=== PATIENT | female | born 1945 | race Two or more races ===

== ENCOUNTER 2020-08-22 07:45 | Outpatient (REF) | payer MEDICARE, MEDICAID, SELFPAY ==
[2020-08-22 09:24] LABS: Anion Gap 12 (12-20); Blood Urea Nitrogen 29 mg/dL (9-16); Calcium 8.8 mg/dL (8.4-10.2); Carbon Dioxide 25 mmol/L (22-29); Chloride 109 mmol/L (96-108); Estimated Glomerular Filt Rate 28; Potassium 5.1 mmol/l (3.3-5.1); Sodium 141 mmol/L (135-145)
== END 2020-08-22 07:46 | disposition home or self-care (01) ==
LOC: HO.LAB 07:45
PROVIDERS: PCP Internal Medicine; Visit Provider Internal Medicine Hypertension Specialist
DX: E11.21 Type 2 diabetes mellitus with diabetic nephropathy (principal); I13.10 Hypertensive heart and chronic kidney disease without heart failure, with stage 1 through stage 4 chronic kidney disease, or unspecified chronic kidney disease
CPT/HCPCS: 36415; 80051; 82310; 82565; 84520

== ENCOUNTER 2020-10-21 08:08 | Outpatient (REF) | payer MEDICARE, MEDICAID, SELFPAY ==
[2020-10-21 10:07] LABS: Anion Gap 15 (12-20); Blood Urea Nitrogen 22 mg/dL (9-16); Calcium 8.8 mg/dL (8.4-10.2); Carbon Dioxide 23 mmol/L (22-29); Chloride 107 mmol/L (96-108); Estimated Glomerular Filt Rate 27; Potassium 5.2 mmol/L (3.3-5.1); Sodium 140 mmol/L (135-145)
== END 2020-10-21 08:09 | disposition home or self-care (01) ==
LOC: HO.LAB 08:08
PROVIDERS: PCP Internal Medicine; Visit Provider Internal Medicine Hypertension Specialist
DX: I13.10 Hypertensive heart and chronic kidney disease without heart failure, with stage 1 through stage 4 chronic kidney disease, or unspecified chronic kidney disease (principal); N18.30 Chronic kidney disease, stage 3 unspecified; E11.21 Type 2 diabetes mellitus with diabetic nephropathy; E11.22 Type 2 diabetes mellitus with diabetic chronic kidney disease
CPT/HCPCS: 36415; 80051; 82310; 82565; 84520

== ENCOUNTER 2020-11-19 12:17 | Outpatient (REF) | payer MEDICARE, MEDICAID, SELFPAY ==
--- NOTE | ~2020-11-19 | US_ITS ---
EXAMINATION: US RETROPERITONEAL LIMITED (RENAL ONLY) CLINICAL INFORMATION: Chronic kidney disease, stage 3b. COMPARISON: MRI abdomen 12/09/2015. CT abdomen and pelvis 12/07/2015. Ultrasound abdomen 12/07/2015. Renal ultrasound with bladder 03/19/2015. TECHNIQUE: Real-time imaging of the kidneys. FINDINGS: RIGHT KIDNEY: 10.3 x 4.8 x 5.9 cm (SAG x AP x TRV). The kidney is normal in size, contour, and echogenicity. Renal cortical thickness is normal. There is a 1.5 x 1.3 x 1.6 cm cyst in the lower pole. No renal calculi or hydronephrosis. LEFT KIDNEY: 11.1 x 5.3 x 5.1 cm (SAG x AP x TRV). The kidney is normal in size, contour, and echogenicity. Renal cortical thickness is normal. There is a 0.9 cm cyst in the upper pole. No renal calculi or hydronephrosis. US/US renal BI IMPRESSION: Small bilateral renal cysts.
== END 2020-11-19 12:18 | disposition home or self-care (01) ==
LOC: HO.US 12:17
PROVIDERS: Visit Provider Internal Medicine Hypertension Specialist
DX: N18.32 Chronic kidney disease, stage 3b (principal)
CPT/HCPCS: 76775

== ENCOUNTER 2020-12-02 09:05 | Outpatient (REF) | payer MEDICARE, MEDICAID, SELFPAY ==
[2020-12-02 10:35] LABS: Anion Gap 14 (12-20); Blood Urea Nitrogen 29 mg/dL (9-16); Calcium 8.9 mg/dL (8.4-10.2); Carbon Dioxide 23 mmol/L (22-29); Chloride 106 mmol/L (96-108); Estimated Glomerular Filt Rate 24; Sodium 138 mmol/L (135-145)
[2020-12-02 11:09] LABS: Creatinine Urine 140.02 mg/dL
[2020-12-02 11:40] LABS: Protein/Creatinine Ratio, Ur 2.96 (<0.2); Total Protein Urine Random 414 mg/dL (<12)
== END 2020-12-02 09:06 | disposition home or self-care (01) ==
LOC: HO.LAB 09:05
PROVIDERS: PCP Internal Medicine; Visit Provider Internal Medicine Hypertension Specialist
DX: N18.32 Chronic kidney disease, stage 3b (principal)
CPT/HCPCS: 36415; 80051; 82310; 82565; 84156; 84520

== ENCOUNTER 2021-03-06 09:32 | Outpatient (REF) | payer MEDICARE, MEDICAID, SELFPAY ==
[2021-03-06 10:45] LABS: Estimated Average Glucose 148 mg/dL; Hemoglobin A1c % 6.8 %
[2021-03-06 10:55] LABS: Anion Gap 11 (12-20); Blood Urea Nitrogen 25 mg/dL (9-16); Calcium 9.4 mg/dL (8.4-10.2); Carbon Dioxide 26 mmol/L (22-29); Chloride 111 mmol/L (96-108); Estimated Glomerular Filt Rate 24; Glucose Random 149 mg/dL (60-115); Sodium 142 mmol/L (135-145)
[2021-03-09 13:01] LABS: Calcium (PTHI) 9.2 mg/dL (8.6-10.4); PTHI 162 pg/mL (14-64)
== END 2021-03-06 09:33 | disposition home or self-care (01) ==
LOC: HO.LAB 09:32
PROVIDERS: PCP Internal Medicine; Visit Provider Internal Medicine Hypertension Specialist
DX: N18.4 Chronic kidney disease, stage 4 (severe) (principal)
CPT/HCPCS: 36415; 80048; 83036; 83970

== ENCOUNTER 2021-05-14 10:36 | Outpatient (REF) | payer MEDICARE, MEDICAID, SELFPAY ==
[2021-05-14 12:01] LABS: Prothrombin Time 11.4 SEC (9.9-13.0)
[2021-05-14 12:13] LABS: Anion Gap 13 (12-20); Blood Urea Nitrogen 33 mg/dL (9-16); Calcium 9.6 mg/dL (8.4-10.2); Carbon Dioxide 23 mmol/L (22-29); Chloride 110 mmol/L (96-108); Estimated Glomerular Filt Rate 22; Potassium 4.9 mmol/L (3.3-5.1); Sodium 141 mmol/L (135-145)
[2021-05-14 12:30] LABS: ~HepC Num1 0.15 S/CO (0.00-0.79); ~Hepatitis C Antibody Nonreactive (Nonreactive)
[2021-05-14 12:34] LABS: HBS Num1 5.73 mIU/mL (0-7.99); HBsAGNum1 0.12 S/CO (0.00-0.99); Hepatitis B Surface Antigen Negative (Negative); ~Hepatitis B Surface Antibody NONREACTIVE (Nonreactive)
[2021-05-15 13:17] LABS: Complement C3 155 mg/dL (83-193)
[2021-05-15 13:21] LABS: Anti Nuclear Antibody Screen NEGATIVE (NEGATIVE)
[2021-05-15 15:56] LABS: Myeloperoxidase Antibody <1.0 AI; Proteinase 3 PR3 Antibodies <1.0 AI
== END 2021-05-14 10:37 | disposition home or self-care (01) ==
LOC: HO.LAB 10:36
PROVIDERS: PCP Internal Medicine; Visit Provider Internal Medicine Hypertension Specialist
DX: Z01.84 Encounter for antibody response examination (principal); Z11.59 Encounter for screening for other viral diseases; E11.22 Type 2 diabetes mellitus with diabetic chronic kidney disease; N18.4 Chronic kidney disease, stage 4 (severe)
CPT/HCPCS: 36415; 80051; 82310; 82565; 84520; 85610; 86021; 86038; 86039; 86160; 86706; 86803; 87340

== ENCOUNTER 2021-09-16 07:11 | Outpatient (REF) | payer MEDICARE, MEDICAID, SELFPAY ==
[2021-09-16 07:27] LABS: MANUAL DIFF FLAG NO
[2021-09-16 07:32] LABS: Basophils Percent Auto 0.2 % (0-2); Eosinophils Absolute Auto 0.4 X10*3/uL (0.0-0.4); Eosinophils Percent Auto 4.3 % (0-4); Hematocrit 32.3 % (37.0-47.0); Hemoglobin 10.7 g/dl (12.0-16.0); Imm Gran Abs Auto 0.03 X10*3/uL (0.00-0.03); Imm Gran Pct Auto 0.3 % (0.0-0.4); Lymphocytes Absolute Auto 2.4 X10*3/uL (1.2-4.9); Lymphocytes Percent Auto 24.9 % (20-40); Mean Corpuscular HGB Conc 33.1 g/dl (31.0-35.0); Mean Corpuscular Hemoglobin 28.7 pg (27.0-33.0); Mean Corpuscular Volume 86.6 fL (80.0-98.0); Mean Platelet Volume 10.9 fL (9.4-12.3); Monocytes Absolute Auto 0.7 X10*3/uL (0.1-1.2); Monocytes Percent Auto 7.7 % (2-11); Neutrophils Percent Auto 62.6 % (45-73); Platelet Count 193 X10*3/uL (160-400); Red Blood Count 3.73 X10*6/uL (4.20-5.50); Red Cell Distribution Width 14.8 % (11.0-16.0); White Blood Count 9.6 X10*3/uL (4.8-10.8)
[2021-09-16 08:12] LABS: Anion Gap 14 (12-20); Blood Urea Nitrogen 30 mg/dL (9-16); Calcium 8.8 mg/dL (8.4-10.2); Carbon Dioxide 20 mmol/L (22-29); Chloride 111 mmol/L (96-108); Estimated Glomerular Filt Rate 16; Glucose Random 137 mg/dL (60-115); Potassium 5.2 mmol/L (3.3-5.1); Sodium 140 mmol/L (135-145)
== END 2021-09-16 07:12 | disposition home or self-care (01) ==
LOC: HO.LAB 07:11
PROVIDERS: PCP Internal Medicine; Visit Provider Internal Medicine Hypertension Specialist
DX: N18.4 Chronic kidney disease, stage 4 (severe) (principal); E11.22 Type 2 diabetes mellitus with diabetic chronic kidney disease
CPT/HCPCS: 36415; 80048; 85025

== ENCOUNTER 2021-11-16 06:53 | Outpatient (REF) | payer MEDICARE, MEDICAID, SELFPAY ==
[2021-11-16 08:00] LABS: Anion Gap 11 (12-20); Blood Urea Nitrogen 40 mg/dL (9-16); Calcium 8.9 mg/dL (8.4-10.2); Carbon Dioxide 24 mmol/L (22-29); Chloride 109 mmol/L (96-108); Estimated Glomerular Filt Rate 21; Glucose Random 134 mg/dL (60-115); Potassium 5.3 mmol/L (3.3-5.1); Sodium 139 mmol/L (135-145)
== END 2021-11-16 06:54 | disposition home or self-care (01) ==
LOC: HO.LAB 06:53
PROVIDERS: PCP Internal Medicine; Visit Provider Internal Medicine Hypertension Specialist
DX: E11.22 Type 2 diabetes mellitus with diabetic chronic kidney disease (principal); N18.4 Chronic kidney disease, stage 4 (severe)
CPT/HCPCS: 36415; 80048

== ENCOUNTER 2022-01-01 07:34 | Outpatient (REF) | payer MEDICARE, MEDICAID, SELFPAY ==
[2022-01-01 08:43] LABS: Anion Gap 14 (12-20); Blood Urea Nitrogen 42 mg/dL (9-16); Calcium 9.2 mg/dL (8.4-10.2); Carbon Dioxide 21 mmol/L (22-29); Chloride 110 mmol/L (96-108); Estimated Glomerular Filt Rate 21; Glucose Random 139 mg/dL (60-115); Sodium 140 mmol/L (135-145)
[2022-01-04 15:52] LABS: Calcium (PTHI) 9.3 mg/dL (8.6-10.4); PTHI 195 pg/mL (16-77)
== END 2022-01-01 07:35 | disposition home or self-care (01) ==
LOC: HO.LAB 07:34
PROVIDERS: PCP Internal Medicine; Visit Provider Internal Medicine Hypertension Specialist
DX: N18.4 Chronic kidney disease, stage 4 (severe) (principal); E11.22 Type 2 diabetes mellitus with diabetic chronic kidney disease
CPT/HCPCS: 36415; 80048; 83970

== ENCOUNTER 2022-03-25 09:06 | Outpatient (REF) | payer MEDICARE, MEDICAID, SELFPAY ==
--- NOTE | ~2022-03-25 | MM_ITS ---
EXAMINATION: BONE DENSITOMETRY CLINICAL INDICATION: Vitamin D deficiency. Stage IV kidney disease. COMPARISON: None (current study represents initial baseline exam). TECHNIQUE: Using a [employer] DXA System (software version: 13.1) manufactured by [employer], dual-energy x-ray absorptiometry was performed of the lumbar spine and left hip. The images are of good technical quality. Summary results are attached. FINDINGS: AP SPINE L1-L4: BMD 1.892 g/cm2, Z-score 6.6, T-score 5.9, normal. LEFT FEMUR, NECK: BMD 1.074 g/cm2, Z-score 1.5, T-score 0.3, normal. LEFT FEMUR, TOTAL: BMD 1.285 g/cm2, Z-score 3.2, T-score 2.2, normal. IDENTIFIED RISK FACTORS: Menopause, height loss, renal. HISTORY OF FRACTURE: None listed. MEDICATIONS: Vitamin D. MM/XR DEXA axial skeleton IMPRESSION: 1. DIAGNOSIS: Normal bone density based on the lowest T-score value of 0.3 in the femoral neck applying World Health Organization criteria. 2. 10-YEAR FRACTURE RISK PREDICTION, FRAX: According to the guidelines, FRAX calculation should only be performed on patients in the osteopenia bone density category. Therefore, FRAX was not performed on this patient. 3. Treatment Recommendations: NOF guidelines recommend consideration for treatment in postmenopausal women and men age 50 and older presenting with the following: -A hip or vertebral (clinical or morphometric) fracture. -T-score less than or equal to -2.5 at the femoral neck or spine after appropriate evaluation to exclude secondary causes. -Low bone mass at the hip or spine and a 10-year fracture probability by FRAX of greater than or equal to 3% for hip fracture or greater than or equal to 20% for major osteoporotic fracture based on the [place] adapted WHO algorithm. 4. Other Recommendations: All treatment decisions require clinical judgment and consideration of individual patient factors, including patient preferences, comorbidities, previous drug use, risk factors not captured in the FRAX model (e.g. frailty, falls, vitamin D deficiency, increased bone turnover, interval significant decline in bone density) and possible under or overestimation of fracture risk by FRAX. FUTURE SCAN RECOMMENDATION: People with diagnosed cases of osteoporosis or at high risk for fracture should have regular bone mineral density tests. For patients eligible for Medicare, routine testing is allowed once every 2 years. The testing frequency can be increased to one year for patients who have rapidly progressing disease, those who are receiving or discontinuing medical therapy to restore bone mass, or have additional risk factors.
== END 2022-03-25 09:07 | disposition home or self-care (01) ==
LOC: HO.MAMMO 09:06
PROVIDERS: PCP Internal Medicine; Visit Provider Internal Medicine
DX: Z13.820 Encounter for screening for osteoporosis (principal); E55.9 Vitamin D deficiency, unspecified; N18.4 Chronic kidney disease, stage 4 (severe); Z78.0 Asymptomatic menopausal state
CPT/HCPCS: 77080

== ENCOUNTER 2022-05-24 07:11 | Outpatient (REF) | payer MEDICARE, MEDICAID, SELFPAY ==
[2022-05-24 07:30] LABS: MANUAL DIFF FLAG NO
[2022-05-24 07:42] LABS: Basophils Percent Auto 0.4 % (0-2); Eosinophils Absolute Auto 0.7 X10*3/uL (0.0-0.4); Eosinophils Percent Auto 7.4 % (0-4); Hematocrit 33.1 % (37.0-47.0); Hemoglobin 10.8 g/dl (12.0-16.0); Imm Gran Abs Auto 0.04 X10*3/uL (0.00-0.03); Imm Gran Pct Auto 0.4 % (0.0-0.4); Lymphocytes Absolute Auto 2.1 X10*3/uL (1.2-4.9); Lymphocytes Percent Auto 21.6 % (20-40); Mean Corpuscular HGB Conc 32.6 g/dl (31.0-35.0); Mean Corpuscular Hemoglobin 28.5 pg (27.0-33.0); Mean Corpuscular Volume 87.3 fL (80.0-98.0); Mean Platelet Volume 11.2 fL (9.4-12.3); Monocytes Absolute Auto 0.9 X10*3/uL (0.1-1.2); Monocytes Percent Auto 8.8 % (2-11); Neutrophils Percent Auto 61.4 % (45-73); Platelet Count 188 X10*3/uL (160-400); Red Blood Count 3.79 X10*6/uL (4.20-5.50); Red Cell Distribution Width 14.6 % (11.0-16.0); White Blood Count 9.8 X10*3/uL (4.8-10.8)
[2022-05-24 08:11] LABS: Anion Gap 16 (12-20); Blood Urea Nitrogen 37 mg/dL (9-16); Calcium 9.3 mg/dL (8.4-10.2); Carbon Dioxide 22 mmol/L (22-29); Chloride 110 mmol/L (96-108); Estimated Glomerular Filt Rate 20; Potassium 5.5 mmol/L (3.3-5.1); Sodium 142 mmol/L (135-145)
== END 2022-05-24 07:12 | disposition home or self-care (01) ==
LOC: HO.LAB 07:11
PROVIDERS: PCP Internal Medicine; Visit Provider Internal Medicine Hypertension Specialist
DX: E11.22 Type 2 diabetes mellitus with diabetic chronic kidney disease (principal); N18.4 Chronic kidney disease, stage 4 (severe)
CPT/HCPCS: 36415; 80051; 82310; 82565; 84520; 85025

== ENCOUNTER 2022-09-03 08:20 | Outpatient (REF) | payer MEDICARE, MEDICAID, SELFPAY ==
[2022-09-03 08:34] LABS: MANUAL DIFF FLAG NO
[2022-09-03 08:55] LABS: Basophils Percent Auto 0.3 % (0-2); Eosinophils Absolute Auto 0.4 X10*3/uL (0.0-0.4); Eosinophils Percent Auto 4.2 % (0-4); Imm Gran Abs Auto 0.04 X10*3/uL (0.00-0.03); Imm Gran Pct Auto 0.4 % (0.0-0.4); Mean Corpuscular HGB Conc 32.3 g/dl (31.0-35.0); Mean Corpuscular Volume 86.8 fL (80.0-98.0); Mean Platelet Volume 11.5 fL (9.4-12.3); Monocytes Absolute Auto 0.9 X10*3/uL (0.1-1.2); Monocytes Percent Auto 8.6 % (2-11); Neutrophils Absolute Auto 6.9 x10*3/uL (2.0-8.3); Neutrophils Percent Auto 67.5 % (45-73); Platelet Count 195 X10*3/uL (160-400); Red Blood Count 3.57 X10*6/uL (4.20-5.50); Red Cell Distribution Width 14.9 % (11.0-16.0); White Blood Count 10.3 X10*3/uL (4.8-10.8)
[2022-09-03 09:21] LABS: Anion Gap 14 (12-20); Blood Urea Nitrogen 30 mg/dL (9-16); Calcium 8.7 mg/dL (8.4-10.2); Carbon Dioxide 18 mmol/L (22-29); Chloride 114 mmol/L (96-108); Estimated Glomerular Filt Rate 22; Glucose Random 108 mg/dL (60-115); Potassium 4.9 mmol/L (3.3-5.1); Sodium 141 mmol/L (135-145)
[2022-09-06 13:15] LABS: Calcium (PTHI) 8.7 mg/dL (8.6-10.4); PTHI 205 pg/mL (16-77)
== END 2022-09-03 08:21 | disposition home or self-care (01) ==
LOC: HO.LAB 08:20
PROVIDERS: PCP Internal Medicine; Visit Provider Internal Medicine Hypertension Specialist
DX: N18.4 Chronic kidney disease, stage 4 (severe) (principal)
CPT/HCPCS: 36415; 80048; 83970; 85025

== ENCOUNTER 2023-01-05 10:41 | Outpatient (REF) | payer MEDICARE, MEDICAID, SELFPAY ==
[2023-01-05 10:51] LABS: MANUAL DIFF FLAG NO
[2023-01-05 12:00] LABS: Basophils Percent Auto 0.3 % (0-2); Eosinophils Absolute Auto 0.4 X10*3/uL (0.0-0.4); Eosinophils Percent Auto 4.5 % (0-4); Hematocrit 33.3 % (37.0-47.0); Hemoglobin 10.9 g/dl (12.0-16.0); Imm Gran Abs Auto 0.04 X10*3/uL (0.00-0.03); Imm Gran Pct Auto 0.5 % (0.0-0.4); Lymphocytes Percent Auto 22.6 % (20-40); Mean Corpuscular HGB Conc 32.7 g/dl (31.0-35.0); Mean Corpuscular Hemoglobin 28.1 pg (27.0-33.0); Mean Corpuscular Volume 85.8 fL (80.0-98.0); Mean Platelet Volume 10.9 fL (9.4-12.3); Monocytes Absolute Auto 0.7 X10*3/uL (0.1-1.2); Monocytes Percent Auto 7.6 % (2-11); Neutrophils Absolute Auto 5.7 x10*3/uL (2.0-8.3); Neutrophils Percent Auto 64.5 % (45-73); Platelet Count 218 X10*3/uL (160-400); Red Blood Count 3.88 X10*6/uL (4.20-5.50); Red Cell Distribution Width 14.8 % (11.0-16.0); White Blood Count 8.8 X10*3/uL (4.8-10.8)
[2023-01-05 12:46] LABS: Anion Gap 13 (12-20); Blood Urea Nitrogen 39 mg/dL (9-16); Calcium 8.9 mg/dL (8.4-10.2); Carbon Dioxide 24 mmol/L (22-29); Chloride 110 mmol/L (96-108); Estimated Glomerular Filt Rate 16; Glucose Random 171 mg/dL (60-115); Potassium 4.6 mmol/L (3.3-5.1); Sodium 142 mmol/L (135-145)
[2023-01-07 19:23] LABS: Calcium (PTHI) 8.6 mg/dL (8.6-10.4); PTHI 359 pg/mL (16-77)
== END 2023-01-05 10:42 | disposition home or self-care (01) ==
LOC: HO.LAB 10:41
PROVIDERS: PCP Internal Medicine; Visit Provider Internal Medicine Hypertension Specialist
DX: N18.4 Chronic kidney disease, stage 4 (severe) (principal)
CPT/HCPCS: 36415; 80048; 83970; 85025

== ENCOUNTER 2023-04-11 08:41 | Outpatient (REF) | payer MEDICARE, MEDICAID, SELFPAY ==
[2023-04-11 08:57] LABS: MANUAL DIFF FLAG NO
[2023-04-11 09:19] LABS: Basophils Percent Auto 0.3 % (0-2); Eosinophils Absolute Auto 0.4 X10*3/uL (0.0-0.4); Eosinophils Percent Auto 3.6 % (0-4); Hematocrit 32.2 % (37.0-47.0); Hemoglobin 10.4 g/dl (12.0-16.0); Imm Gran Abs Auto 0.06 X10*3/uL (0.00-0.03); Imm Gran Pct Auto 0.5 % (0.0-0.4); Lymphocytes Percent Auto 17.9 % (20-40); Mean Corpuscular HGB Conc 32.3 g/dl (31.0-35.0); Mean Corpuscular Hemoglobin 28.4 pg (27.0-33.0); Mean Platelet Volume 11.7 fL (9.4-12.3); Monocytes Absolute Auto 0.8 X10*3/uL (0.1-1.2); Monocytes Percent Auto 7.5 % (2-11); Neutrophils Absolute Auto 7.7 x10*3/uL (2.0-8.3); Neutrophils Percent Auto 70.2 % (45-73); Platelet Count 196 X10*3/uL (160-400); Red Blood Count 3.66 X10*6/uL (4.20-5.50); Red Cell Distribution Width 14.7 % (11.0-16.0); White Blood Count 10.9 X10*3/uL (4.8-10.8)
[2023-04-11 09:53] LABS: Anion Gap 10 (12-20); Blood Urea Nitrogen 42 mg/dL (9-16); Calcium 9.4 mg/dL (8.4-10.2); Carbon Dioxide 21 mmol/L (22-29); Chloride 112 mmol/L (96-108); Estimated Glomerular Filt Rate 16; Glucose Random 168 mg/dL (60-115); Iron 66 mcg/dL (30-160); Percent Iron Saturation 25 % (15-50); Potassium 5.4 mmol/L (3.3-5.1); Sodium 138 mmol/L (135-145); Total Iron Binding Capacity 267 mcg/dL (228-428); Unsaturated Iron Binding 201 ug/dL
== END 2023-04-11 08:42 | disposition home or self-care (01) ==
LOC: HO.LAB 08:41
PROVIDERS: PCP Internal Medicine; Visit Provider Internal Medicine Hypertension Specialist
DX: N18.4 Chronic kidney disease, stage 4 (severe) (principal)
CPT/HCPCS: 36415; 80048; 83540; 85025

== ENCOUNTER 2023-07-27 08:11 | Outpatient (REF) | payer MEDICARE, MEDICAID, SELFPAY ==
[2023-07-27 09:41] LABS: Anion Gap 11 (12-20); Blood Urea Nitrogen 43 mg/dL (9-16); Calcium 8.7 mg/dL (8.4-10.2); Carbon Dioxide 21 mmol/L (22-29); Chloride 114 mmol/L (96-108); Estimated Glomerular Filt Rate 13; Potassium 4.8 mmol/L (3.3-5.1); Sodium 141 mmol/L (135-145)
== END 2023-07-27 08:12 | disposition home or self-care (01) ==
LOC: HO.LAB 08:11
PROVIDERS: Visit Provider Internal Medicine Hypertension Specialist
DX: N18.9 Chronic kidney disease, unspecified (principal)
CPT/HCPCS: 36415; 80051; 82310; 82565; 84520

== ENCOUNTER 2023-08-01 14:53 | Outpatient (AMB) | payer MEDICARE, MEDICAID, SELFPAY ==
--- NOTE | 2023-08-01 14:53 | HO.NEPHOV ---
HPI HPI Comments History of Present Illness Details Elderly woman with history of longstanding hypertension with advanced CKD. 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 She was accompanied by her caregiver. Today she has no new complaints. No shortness of breath no nausea vomiting No edema. No urine symptoms. For the last week she has been taking Aleve. Recent serum creatinine is bumped up to 3.3 from a baseline of 2.8. 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 Social History Household Members: None Alcohol intake: never Patient Tobacco Use Status: Never used Tobacco Vital Signs 08/01/23 14:57 Height 5 ft 5 in Weight 239 lb BMI 39.8 BP 162/78 H Blood Pressure Location Lt brachial Position Sitting Pulse 60 Pulse Source Pulse Oximeter Pulse Oximetry (%) 99 Oxygen Delivery Method Room Air Physical Exam Vital Signs: Last Vital Signs Pulse 60 08/01/23 14:57 BP 162/78 H 08/01/23 14:57 Pulse Ox 99 08/01/23 14:57 Oxygen Delivery Method Room Air 08/01/23 14:57 BMI result Body Mass Index 39.8 Const General: comfortable Nutritional Appearance: well nourished Orientation/consciousness: patient oriented x3 HEENT Head: No normal to inspection Mouth: moist mucous membranes Neck Neck: Yes supple and Yes no JVD Resp Auscultation: clear to auscultation bilaterally, no rales and rub present Cardio Jugular venous distension: no JVD Palpation: no palpable S3 and no palpable S4 Heart sounds: no rubs GI Palpation (GI): Soft to palpation and nontender Percussion: No Fluid wave present General: Yes no CVA tenderness Back/Spine/Pelvis Back: no CVA tenderness Skin General skin exam: no rashes or lesions noted Neuro General: patient oriented x3 Extrem General: Yes no pedal edema and No clubbing Assessment & Plan Assessment & Plan (1) CKD (chronic kidney disease): Code(s): N18.9 - Chronic kidney disease, unspecified Plan Elderly woman with advanced renal failure due to diabetic nephropathy by biopsy. There has been a bump in serum creatinine due to the recent addition of Aleve. I have encouraged her to avoid NSAIDs. Clinically she is doing well without any signs or symptoms of uremia or fluid overload. She will recheck the renal function after stopping Aleve. In the meantime encouraged her to stay on low-sodium diet. Increase fluid intake. Although the office blood pressure was elevated today she assures me that her blood pressure has been well controlled at home and she has been monitoring it at home. Therefore I have not made any changes to the antihypertensive regimen. 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 I will recheck intact PTH and calcium prior to next visit and start on vitamin D3 analog as indicated. No absolute indication for erythropoietin replacement therapy at this time. Answered all her questions Orders: Orders Total Protein Urine Random 6 Weeks N18.9 - Chronic kidney disease, unspecified Basic Metabolic Panel 6 Weeks N18.9 - Chronic kidney disease, unspecified Creatinine Urine 6 Weeks N18.9 - Chronic kidney disease, unspecified Parathyroid Hormone Intact 6 Weeks N18.9 - Chronic kidney disease, unspecified Phosphorus 6 Weeks N18.9 - Chronic kidney disease, unspecified Complete Blood Count no Diff 6 Weeks N18.9 - Chronic kidney disease, unspecified Coding Level of Care Code Est Pt Level 4 (77117) Diagnoses CKD (chronic kidney disease) N18.9 Results Reviewed Nephrology Results: Hgb 10.4 g/dl (12.0-16.0) L 04/11/23 WBC 10.9 X10*3/uL (4.8-10.8) H 04/11/23 Plt Count 196 X10*3/uL (160-400) 04/11/23 Sodium 141 mmol/L (135-145) 07/27/23 Potassium 4.8 mmol/L (3.3-5.1) 07/27/23 Chloride 114 mmol/L (96-108) H 07/27/23 Carbon Dioxide 21 mmol/L (22-29) L 07/27/23 BUN 43 mg/dL (9-16) H 07/27/23 Creatinine 3.39 mg/dL (0.5-1.4) H 07/27/23 Calcium 8.7 mg/dL (8.4-10.2) 07/27/23 PTH Intact 359 pg/mL (16-77) H 01/05/23 Urine Creatinine 140.02 mg/dL 12/02/20 Protein/Creatinin Ratio 2.96 (<0.2) H 12/02/20 Renal US 11/19/20
[2023-08-01 14:57] VITALS: BP 162/78; PULSE 60; O2SAT 99; BMI 39.8
== END 2023-08-01 15:25 | disposition home or self-care (01) ==
PROVIDERS: PCP Internal Medicine; Visit Provider Internal Medicine Hypertension Specialist
DX: N18.9 Chronic kidney disease, unspecified (principal)
CPT/HCPCS: 99214

== ENCOUNTER → 2023-08-01 14:53 | Outpatient (BNVA) | payer MEDICARE, MEDICAID, SELFPAY | PROVIDERS: PCP Internal Medicine; Visit Provider Internal Medicine Hypertension Specialist | DX: I12.9 Hypertensive chronic kidney disease with stage 1 through stage 4 chronic kidney disease, or unspecified chronic kidney disease (principal); N18.9 Chronic kidney disease, unspecified | CPT/HCPCS: 99212 ==

== ENCOUNTER 2023-09-21 09:54 | Outpatient (REF) | payer MEDICARE, MEDICAID, SELFPAY ==
[2023-09-21 10:30] LABS: Hematocrit 27.9 % (37.0-47.0); Hemoglobin 9.3 g/dl (12.0-16.0); Mean Corpuscular HGB Conc 33.3 g/dl (31.0-35.0); Mean Corpuscular Hemoglobin 27.5 pg (27.0-33.0); Mean Corpuscular Volume 82.5 fL (80.0-98.0); Platelet Count 278 X10*3/uL (160-400); Red Blood Count 3.38 X10*6/uL (4.20-5.50); Red Cell Distribution Width 14.4 % (11.0-16.0); White Blood Count 13.2 X10*3/uL (4.8-10.8)
[2023-09-21 11:00] LABS: Anion Gap 12 (12-20); Blood Urea Nitrogen 42 mg/dL (9-16); Calcium 8.8 mg/dL (8.4-10.2); Carbon Dioxide 20 mmol/L (22-29); Chloride 112 mmol/L (96-108); Glucose Random 131 mg/dL (60-115); Phosphorus 3.6 mg/dL (2.7-4.5); Potassium 5.2 mmol/L (3.3-5.1); Sodium 139 mmol/L (135-145)
[2023-09-21 11:03] LABS: Estimated Glomerular Filt Rate 8
[2023-09-21 11:16] LABS: Creatinine Urine 165.32 mg/dL
[2023-09-21 11:27] LABS: Total Protein Urine Random 1428 mg/dL (<12)
== END 2023-09-21 09:55 | disposition home or self-care (01) ==
LOC: HO.LAB 09:54
PROVIDERS: PCP Internal Medicine; Visit Provider Internal Medicine Hypertension Specialist
DX: N18.9 Chronic kidney disease, unspecified (principal)
CPT/HCPCS: 36415; 80048; 82570; 83970; 84100; 84156; 85027

== ENCOUNTER 2023-09-26 14:52 | Outpatient (AMB) | payer MEDICARE, MEDICAID, SELFPAY ==
[2023-09-26 15:00] VITALS: BP 170/68; PULSE 68; O2SAT 97; BMI 39.8
--- NOTE | 2023-09-26 15:00 | HO.NEPHOV ---
HPI HPI Comments History of Present Illness Details Elderly woman with history of longstanding hypertension with advanced CKD. 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 She was accompanied by her caregiver. Today she has no new complaints. No shortness of breath no nausea vomiting No edema. No urine symptoms. For the last week she has been taking Aleve. Recent serum creatinine is bumped up to 3.3 from a baseline of 2.8. 09/26/23 REcently had nausea, vomiting, diarrhea for 5 days. 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 Social History Household Members: None Alcohol intake: never Patient Tobacco Use Status: Never used Tobacco Vital Signs 09/26/23 15:00 Height 5 ft 5 in Weight 239 lb BMI 39.8 BP 170/68 H Blood Pressure Location Lt brachial Position Sitting Pulse 68 Pulse Source Pulse Oximeter Pulse Oximetry (%) 97 Oxygen Delivery Method Room Air Physical Exam Vital Signs: Last Vital Signs Pulse 68 09/26/23 15:00 BP 170/68 H 09/26/23 15:00 Pulse Ox 97 09/26/23 15:00 Oxygen Delivery Method Room Air 09/26/23 15:00 BMI result Body Mass Index 39.8 Const General: comfortable Nutritional Appearance: well nourished Orientation/consciousness: patient oriented x3 HEENT Head: No normal to inspection Mouth: moist mucous membranes Neck Neck: Yes supple and Yes no JVD Resp Auscultation: clear to auscultation bilaterally, no rales and rub present Cardio Jugular venous distension: no JVD Palpation: no palpable S3 and no palpable S4 Heart sounds: no rubs GI Palpation (GI): Soft to palpation and nontender Percussion: No Fluid wave present General: Yes no CVA tenderness Back/Spine/Pelvis Back: no CVA tenderness Skin General skin exam: no rashes or lesions noted Neuro General: patient oriented x3 Extrem General: Yes no pedal edema and No clubbing Assessment & Plan Assessment & Plan (1) CKD (chronic kidney disease): Code(s): N18.9 - Chronic kidney disease, unspecified Plan Elderly woman with advanced renal failure due to diabetic nephropathy by biopsy. There has been a bump in serum creatinine due to the recent addition of Aleve. I have encouraged her to avoid NSAIDs. Clinically she is doing well without any signs or symptoms of uremia or fluid overload. In the meantime encouraged her to stay on low-sodium diet. Increase fluid intake. Although the office blood pressure was elevated today she assures me that her blood pressure has been well controlled at home and she has been monitoring it at home. Therefore I have not made any changes to the antihypertensive regimen. 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 recheck intact PTH and calcium No absolute indication for erythropoietin replacement therapy at this time. 09/26/23 Superimposd JENNIFER Due to hypoperfusion in a setting of nausea vomiting HOld LAsix and Losartan x 2 days REcheck labs She might be progressing towards ESRD Daughter was tih her and Mey is not interested in dialysis if the need arises Answered all her questions Orders: Orders Basic Metabolic Panel 2 Days N18.9 - Chronic kidney disease, unspecified Coding Level of Care Code Est Pt Level 4 (69547) Diagnoses CKD (chronic kidney disease) N18.9 Results Reviewed Nephrology Results: Hgb 9.3 g/dl (12.0-16.0) L 09/21/23 WBC 13.2 X10*3/uL (4.8-10.8) H 09/21/23 Plt Count 278 X10*3/uL (160-400) 09/21/23 Sodium 139 mmol/L (135-145) 09/21/23 Potassium 5.2 mmol/L (3.3-5.1) H 09/21/23 Chloride 112 mmol/L (96-108) H 09/21/23 Carbon Dioxide 20 mmol/L (22-29) L 09/21/23 BUN 42 mg/dL (9-16) H 09/21/23 Creatinine 5.07 mg/dL (0.5-1.4) H* 09/21/23 Calcium 8.8 mg/dL (8.4-10.2) 09/21/23 Phosphorus 3.6 mg/dL (2.7-4.5) 09/21/23 PTH Intact 544.0 pg/mL (8.7-77.1) H 09/21/23 Urine Creatinine 165.32 mg/dL 09/21/23
== END 2023-09-26 15:21 | disposition home or self-care (01) ==
PROVIDERS: PCP Internal Medicine; Visit Provider Internal Medicine Hypertension Specialist
DX: N18.9 Chronic kidney disease, unspecified (principal)
CPT/HCPCS: 99214

== ENCOUNTER → 2023-09-26 14:52 | Outpatient (BNVA) | payer MEDICARE, MEDICAID, SELFPAY | PROVIDERS: PCP Internal Medicine; Visit Provider Internal Medicine Hypertension Specialist | DX: N18.9 Chronic kidney disease, unspecified (principal) | CPT/HCPCS: 99212 ==

== ENCOUNTER 2023-09-28 08:58 | Outpatient (REF) | payer MEDICARE, MEDICAID, SELFPAY ==
[2023-09-28 10:55] LABS: Anion Gap 10 (12-20); Blood Urea Nitrogen 44 mg/dL (9-16); Carbon Dioxide 20 mmol/L (22-29); Chloride 112 mmol/L (96-108); Estimated Glomerular Filt Rate 9; Glucose Random 137 mg/dL (60-115); Potassium 5.2 mmol/L (3.3-5.1); Sodium 137 mmol/L (135-145)
== END 2023-09-28 08:59 | disposition home or self-care (01) ==
LOC: HO.LAB 08:58
PROVIDERS: PCP Internal Medicine; Visit Provider Internal Medicine Hypertension Specialist
DX: N18.9 Chronic kidney disease, unspecified (principal)
CPT/HCPCS: 36415; 80048

== ENCOUNTER 2023-10-14 08:24 | Outpatient (REF) | payer MEDICARE, SELFPAY ==
[2023-10-14 09:15] LABS: Anion Gap 14 (12-20); Blood Urea Nitrogen 33 mg/dL (9-16); Calcium 7.9 mg/dL (8.4-10.2); Carbon Dioxide 21 mmol/L (22-29); Chloride 105 mmol/L (96-108); Estimated Glomerular Filt Rate 9; Glucose Random 138 mg/dL (60-115); Potassium 4.4 mmol/L (3.3-5.1); Sodium 136 mmol/L (135-145)
== END 2023-10-14 08:25 | disposition home or self-care (01) ==
LOC: HO.LAB 08:24
PROVIDERS: PCP Internal Medicine; Visit Provider Internal Medicine Hypertension Specialist
DX: N18.9 Chronic kidney disease, unspecified (principal)
CPT/HCPCS: 36415; 80048

== ENCOUNTER 2023-10-17 14:41 | Outpatient (AMB) | payer MEDICARE, MEDICAID, SELFPAY ==
[2023-10-17 14:43] VITALS: BP 152/64; PULSE 72; O2SAT 99; BMI 39.9
--- NOTE | 2023-10-17 14:43 | HO.NEPHOV_ITS ---
HPI HPI Comments History of Present Illness Details Elderly woman with history of longstanding hypertension with advanced CKD. 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 She was accompanied by her caregiver. Today she has no new complaints. No shortness of breath no nausea vomiting No edema. No urine symptoms. For the last week she has been taking Aleve. Recent serum creatinine is bumped up to 3.3 from a baseline of 2.8. 09/26/23 Recently had nausea, vomiting, diarrhea for 5 days. 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 Social History Household Members: None Alcohol intake: never Patient Tobacco Use Status: Never used Tobacco Vital Signs 10/17/23 14:43 Height 5 ft 5 in Weight 240 lb BMI 39.9 BP 152/64 H Blood Pressure Location Rt brachial Position Sitting Pulse 72 Pulse Source Pulse Oximeter Pulse Oximetry (%) 99 Oxygen Delivery Method Room Air Physical Exam Vital Signs: Last Vital Signs Pulse 72 10/17/23 14:43 BP 152/64 H 10/17/23 14:43 Pulse Ox 99 10/17/23 14:43 Oxygen Delivery Method Room Air 10/17/23 14:43 BMI result Body Mass Index 39.9 Const General: comfortable Nutritional Appearance: well nourished Orientation/consciousness: patient oriented x3 HEENT Head: No normal to inspection Mouth: moist mucous membranes Neck Neck: Yes supple and Yes no JVD Resp Auscultation: clear to auscultation bilaterally, no rales and rub present Cardio Jugular venous distension: no JVD Palpation: no palpable S3 and no palpable S4 Heart sounds: no rubs GI Palpation (GI): Soft to palpation and nontender Percussion: No Fluid wave present General: Yes no CVA tenderness Back/Spine/Pelvis Back: no CVA tenderness Skin General skin exam: no rashes or lesions noted Neuro General: patient oriented x3 Extrem General: No clubbing and Yes pedal edema Assessment & Plan Assessment & Plan (1) CKD (chronic kidney disease): Code(s): N18.9 - Chronic kidney disease, unspecified Plan Elderly woman with advanced renal failure due to diabetic nephropathy by biopsy. There was bump in serum creatinine due to the recent addition of Aleve. I have encouraged her to avoid NSAIDs. Creatinine is close to baseline BP acceptable 2nd hyperparathyroidism intact PTH was elevated. recheck intact PTH and calcium No absolute indication for erythropoietin replacement therapy at this time. Due to edema, I iwll restart LASIX at 20 mg QD and can increase to 40 mg if needed Stay on low salt diet Granddaughter was with her . Discussed possible need for dialysis in near future Discussed in detail She agrees to Peritoneal dialysis when the need arises Orders: Orders 2 Basic Metabolic Panel Today N18.9 - Chronic kidney disease, unspecified Medications: New furosemide (Lasix) 20 mg PO DAILY 30 tabs 2RF Coding Level of Care Code Est Pt Level 4 (11851) Diagnoses CKD (chronic kidney disease) N18.9 Results Reviewed Nephrology Results: Hgb 9.3 g/dl (12.0-16.0) L 09/21/23 WBC 13.2 X10*3/uL (4.8-10.8) H 09/21/23 Plt Count 278 X10*3/uL (160-400) 09/21/23 Sodium 136 mmol/L (135-145) 10/14/23 Potassium 4.4 mmol/L (3.3-5.1) 10/14/23 Chloride 105 mmol/L (96-108) 10/14/23 Carbon Dioxide 21 mmol/L (22-29) L 10/14/23 BUN 33 mg/dL (9-16) H 10/14/23 Creatinine 4.86 mg/dL (0.5-1.4) H* 10/14/23 Calcium 7.9 mg/dL (8.4-10.2) L 10/14/23 Phosphorus 3.6 mg/dL (2.7-4.5) 09/21/23 PTH Intact 544.0 pg/mL (8.7-77.1) H 09/21/23 Urine Creatinine 165.32 mg/dL 09/21/23
== END 2023-10-17 15:09 | disposition home or self-care (01) ==
PROVIDERS: PCP Internal Medicine; Visit Provider Internal Medicine Hypertension Specialist
DX: N18.9 Chronic kidney disease, unspecified (principal)
CPT/HCPCS: 99214

== ENCOUNTER → 2023-10-17 14:41 | Outpatient (BNVA) | payer MEDICARE, MEDICAID, SELFPAY | PROVIDERS: PCP Internal Medicine; Visit Provider Internal Medicine Hypertension Specialist | DX: N18.9 Chronic kidney disease, unspecified (principal) | CPT/HCPCS: 99212 ==

== ENCOUNTER 2023-11-11 10:10 | Outpatient (REF) | payer MEDICARE, MEDICAID, SELFPAY ==
[2023-11-11 12:05] LABS: Anion Gap 14 (12-20); Blood Urea Nitrogen 51 mg/dL (9-16); Calcium 8.5 mg/dL (8.4-10.2); Carbon Dioxide 20 mmol/L (22-29); Chloride 111 mmol/L (96-108); Cholesterol 182 mg/dL (<200); Glucose Random 120 mg/dL (60-115); HDL Cholesterol 60 mg/dL (>40); LDL Cholesterol Calculated 101 mg/dL (<100); Potassium 4.7 mmol/L (3.3-5.1); Sodium 140 mmol/L (135-145); Triglycerides 107 mg/dL (<150)
[2023-11-11 12:46] LABS: Estimated Glomerular Filt Rate 7
[2023-11-11 14:14] LABS: Reflex LDLD? No
== END 2023-11-11 10:11 | disposition home or self-care (01) ==
LOC: HO.LAB 10:10
PROVIDERS: PCP Internal Medicine; Visit Provider Internal Medicine Hypertension Specialist
DX: I12.9 Hypertensive chronic kidney disease with stage 1 through stage 4 chronic kidney disease, or unspecified chronic kidney disease (principal); N18.4 Chronic kidney disease, stage 4 (severe)
CPT/HCPCS: 36415; 80048; 80061

== ENCOUNTER 2023-11-14 14:48 | Outpatient (AMB) | payer MEDICARE, MEDICAID, SELFPAY ==
[2023-11-14 14:49] VITALS: BP 134/54; PULSE 90; O2SAT 97; BMI 39.1
--- NOTE | 2023-11-14 14:49 | HO.NEPHOV_ITS ---
Vital Signs 11/14/23 14:49 Height 5 ft 5 in Weight 235 lb BMI 39.1 BP 134/54 L Blood Pressure Location Lt brachial Position Sitting Pulse 90 Pulse Source Pulse Oximeter Pulse Oximetry (%) 97 Oxygen Delivery Method Room Air Intake Visit Reasons: CKD/ 1 MO FU/ Confirmed [employer] Special Agent Required: No Accompanied by: Grand Child Allergies Crustaceans Allergy (Mild, Uncoded 10/31/23 08:02) SWELLING/HIVES HPI Comments Details: Elderly woman with history of longstanding hypertension with advanced CKD. 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 She was accompanied by her caregiver. Today she has no new complaints. No shortness of breath no nausea vomiting No edema. No urine symptoms. For the last week she has been taking Aleve. Recent serum creatinine is bumped up to 3.3 from a baseline of 2.8. 09/26/23 Recently had nausea, vomiting, diarrhea for 5 days. Cr is up to 5;Today she is feeling better 10/17/23 Accompanied by grand daughter Mey is feeling ok c/o leg swelling No dyspnea Appetite is ok She has gained 1 lb 11/14/23 Feels about the same. 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 Social History Household Members: None Alcohol intake: never Patient Tobacco Use Status: Never used Tobacco Physical Exam Vital Signs: Last Vital Signs Pulse 90 11/14/23 14:49 BP 134/54 L 11/14/23 14:49 Pulse Ox 97 11/14/23 14:49 Oxygen Delivery Method Room Air 11/14/23 14:49 BMI result Body Mass Index 39.1 Const General: comfortable Nutritional Appearance: well nourished Orientation/consciousness: patient oriented x3 HEENT Head: No normal to inspection Mouth: moist mucous membranes Neck Neck: Yes supple and Yes no JVD Resp Auscultation: clear to auscultation bilaterally, no rales and rub present Cardio Jugular venous distension: no JVD Palpation: no palpable S3 and no palpable S4 Heart sounds: no rubs GI Palpation (GI): Soft to palpation and nontender Percussion: No Fluid wave present General: Yes no CVA tenderness Back/Spine/Pelvis Back: no CVA tenderness Skin General skin exam: no rashes or lesions noted Neuro General: patient oriented x3 Extrem General: No clubbing and Yes pedal edema Results Reviewed Nephrology Results: Hgb 9.3 g/dl (12.0-16.0) L 09/21/23 WBC 13.2 X10*3/uL (4.8-10.8) H 09/21/23 Plt Count 278 X10*3/uL (160-400) 09/21/23 Sodium 140 mmol/L (135-145) 11/11/23 Potassium 4.7 mmol/L (3.3-5.1) 11/11/23 Chloride 111 mmol/L (96-108) H 11/11/23 Carbon Dioxide 20 mmol/L (22-29) L 11/11/23 BUN 51 mg/dL (9-16) H 11/11/23 Creatinine 5.61 mg/dL (0.5-1.4) H* 11/11/23 Calcium 8.5 mg/dL (8.4-10.2) 11/11/23 Phosphorus 3.6 mg/dL (2.7-4.5) 09/21/23 PTH Intact 544.0 pg/mL (8.7-77.1) H 09/21/23 Urine Creatinine 165.32 mg/dL 09/21/23 Assessment & Plan Assessment & Plan (1) CKD (chronic kidney disease): Code(s): N18.9 - Chronic kidney disease, unspecified Category: Medical Plan Elderly woman with advanced renal failure due to diabetic nephropathy by biopsy. CKD 5 No s/s of uremia or fluid overload BP acceptable even without Metoprolol Agree with holding Metoprolol for now and watch 2nd hyperparathyroidism intact PTH was elevated. On Vit D3 recheck intact PTH and calcium and will consider adding Rocaltrol No absolute indication for erythropoietin replacement therapy at this time. Will check Iron/TIBC Due to edema, Keep LASIX at 20 mg QD Stay on low salt diet Granddaughter was with her . Discussed possible need for dialysis in near future Discussed in detail She agrees to Peritoneal dialysis when the need arises Will refer for dialysis education Orders: Orders IRON PROFILE 4 Weeks N18.5 - Chronic kidney disease, stage 5, N18.9 - Chronic kidney disease, unspecified Basic Metabolic Panel 4 Weeks N18.9 - Chronic kidney disease, unspecified Complete Blood Count Auto Diff 4 Weeks N18.30 - Chronic kidney disease, stage 3 unspecified, N18.9 - Chronic kidney disease, unspecified Parathyroid Hormone Intact 4 Weeks N18.9 - Chronic kidney disease, unspecified
== END 2023-11-14 15:10 | disposition home or self-care (01) ==
LOC: HO.HKA 14:48
PROVIDERS: PCP Internal Medicine; Visit Provider Internal Medicine Hypertension Specialist
DX: N18.9 Chronic kidney disease, unspecified (principal)
CPT/HCPCS: 99214

== ENCOUNTER → 2023-11-14 14:48 | Outpatient (BNVA) | payer MEDICARE, MEDICAID, SELFPAY | PROVIDERS: PCP Internal Medicine; Visit Provider Internal Medicine Hypertension Specialist | DX: E11.22 Type 2 diabetes mellitus with diabetic chronic kidney disease (principal); I12.0 Hypertensive chronic kidney disease with stage 5 chronic kidney disease or end stage renal disease; N18.5 Chronic kidney disease, stage 5 | CPT/HCPCS: 99212 ==

== ENCOUNTER 2023-12-09 11:12 | Outpatient (REF) | payer MEDICARE, MEDICAID, SELFPAY ==
[2023-12-09 12:54] LABS: Basophils Percent Auto 0.5 % (0-2); Eosinophils Absolute Auto 0.4 X10*3/uL (0.0-0.4); Eosinophils Percent Auto 4.4 % (0-4); Hematocrit 24.6 % (37.0-47.0); Hemoglobin 8.1 g/dl (12.0-16.0); Imm Gran Abs Auto 0.03 X10*3/uL (0.00-0.03); Imm Gran Pct Auto 0.3 % (0.0-0.4); Lymphocytes Absolute Auto 1.7 X10*3/uL (1.2-4.9); Lymphocytes Percent Auto 18.8 % (20-40); MANUAL DIFF FLAG NO; Mean Corpuscular HGB Conc 32.9 g/dl (31.0-35.0); Mean Corpuscular Hemoglobin 28.4 pg (27.0-33.0); Mean Corpuscular Volume 86.3 fL (80.0-98.0); Mean Platelet Volume 10.7 fL (9.4-12.3); Monocytes Absolute Auto 0.7 X10*3/uL (0.1-1.2); Monocytes Percent Auto 7.4 % (2-11); Neutrophils Absolute Auto 6.1 x10*3/uL (2.0-8.3); Neutrophils Percent Auto 68.6 % (45-73); Platelet Count 197 X10*3/uL (160-400); Red Blood Count 2.85 X10*6/uL (4.20-5.50); White Blood Count 8.8 X10*3/uL (4.8-10.8)
[2023-12-09 13:46] LABS: Parathyroid Hormone Intact 457.3 pg/mL (8.7-77.1)
[2023-12-09 14:00] LABS: Anion Gap 17 (12-20); Blood Urea Nitrogen 58 mg/dL (9-16); Calcium 8.9 mg/dL (8.4-10.2); Carbon Dioxide 19 mmol/L (22-29); Chloride 111 mmol/L (96-108); Glucose Random 105 mg/dL (60-115); Iron 47 mcg/dL (30-160); Percent Iron Saturation 18 % (15-50); Sodium 142 mmol/L (135-145); Total Iron Binding Capacity 258 mcg/dL (228-428); Unsaturated Iron Binding 211 ug/dL
[2023-12-09 14:07] LABS: Estimated Glomerular Filt Rate 7
== END 2023-12-09 11:13 | disposition home or self-care (01) ==
LOC: HO.LAB 11:12
PROVIDERS: Internal Medicine Hypertension Specialist; PCP Internal Medicine; Visit Provider Psychiatry & Neurology Neurology
DX: N18.5 Chronic kidney disease, stage 5 (principal); N18.30 Chronic kidney disease, stage 3 unspecified
CPT/HCPCS: 36415; 80048; 83540; 83970; 85025

== ENCOUNTER 2023-12-20 15:03 | Outpatient (AMB) | payer MEDICARE, MEDICAID, SELFPAY ==
[2023-12-20 15:07] VITALS: BP 138/52; PULSE 83; O2SAT 96; BMI 38.8
--- NOTE | 2023-12-20 15:07 | HO.NEPHOV ---
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 She was accompanied by her caregiver. Today she has no new complaints. No shortness of breath no nausea vomiting No edema. No urine symptoms. For the last week she has been taking Aleve. Recent serum creatinine is bumped up to 3.3 from a baseline of 2.8. 09/26/23 Recently had nausea, vomiting, diarrhea for 5 days. Cr is up to 5;Today she is feeling better 10/17/23 Accompanied by grand daughter Mey is feeling ok c/o leg swelling No dyspnea Appetite is ok She has gained 1 lb 12/20/23 Feels OK . 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 Social History Household Members: None Alcohol intake: never Patient Tobacco Use Status: Never used Tobacco Physical Exam Vital Signs: Last Vital Signs Pulse 83 12/20/23 15:07 BP 138/52 L 12/20/23 15:07 Pulse Ox 96 12/20/23 15:07 Oxygen Delivery Method Room Air 12/20/23 15:07 BMI result Body Mass Index 38.8 Results Reviewed Nephrology Results: Hgb 8.1 g/dl (12.0-16.0) L 12/09/23 WBC 8.8 X10*3/uL (4.8-10.8) 12/09/23 Plt Count 197 X10*3/uL (160-400) 12/09/23 Sodium 142 mmol/L (135-145) 12/09/23 Potassium 5.0 mmol/L (3.3-5.1) 12/09/23 Chloride 111 mmol/L (96-108) H 12/09/23 Carbon Dioxide 19 mmol/L (22-29) L 12/09/23 BUN 58 mg/dL (9-16) H 12/09/23 Creatinine 5.70 mg/dL (0.5-1.4) H* 12/09/23 Calcium 8.9 mg/dL (8.4-10.2) 12/09/23 Phosphorus 3.6 mg/dL (2.7-4.5) 09/21/23 PTH Intact 457.3 pg/mL (8.7-77.1) H 12/09/23 Urine Creatinine 165.32 mg/dL 09/21/23 Assessment & Plan Assessment & Plan (1) CKD (chronic kidney disease): Code(s): N18.9 - Chronic kidney disease, unspecified Category: Medical Plan Elderly woman with advanced renal failure due to diabetic nephropathy by biopsy. CKD 5 No s/s of uremia or fluid overload BP acceptable even without Metoprolol Agree with holding Metoprolol for now and watch 2nd hyperparathyroidism intact PTH was elevated. On Vit D3 recheck intact PTH and calcium and will consider adding Rocaltrol Anemia Will initaite erythropoietin replacement therapy at this time. Iron/TIBC are acceptable Due to edema, Keep LASIX at 20 mg QD Stay on low salt diet SHPT: start Calcitriol 0.25 mcg 3 x week Granddaughter was with her . Discussed dialysis She agrees to Peritoneal dialysis when the need arises Referred for dialysis education Medications: New calcitriol 0.25 mcg PO 3XW 30 caps 1RF nifedipine ER 60 mg PO DAILY 90 tabs 1RF Coding Level of Care Code Est Pt Level 4 (01090) Diagnoses CKD (chronic kidney disease) N18.9
== END 2023-12-20 15:26 | disposition home or self-care (01) ==
PROVIDERS: PCP Internal Medicine; Visit Provider Internal Medicine Hypertension Specialist
DX: N18.9 Chronic kidney disease, unspecified (principal)
CPT/HCPCS: 99214

== ENCOUNTER → 2023-12-20 15:03 | Outpatient (BNVA) | payer MEDICARE, MEDICAID, SELFPAY | PROVIDERS: PCP Internal Medicine; Visit Provider Internal Medicine Hypertension Specialist | DX: E11.21 Type 2 diabetes mellitus with diabetic nephropathy (principal); E11.22 Type 2 diabetes mellitus with diabetic chronic kidney disease; N18.5 Chronic kidney disease, stage 5 | CPT/HCPCS: 99212 ==

== ENCOUNTER 2024-01-03 12:10 | Outpatient (AMB) | payer MEDICARE, MEDICAID, SELFPAY ==
[2024-01-03 12:12] VITALS: BP 160/58; BMI 38.6
--- NOTE | 2024-01-03 12:12 | HO.NEPHOV ---
Vital Signs 01/03/24 12:12 Height 5 ft 5 in Weight 232 lb BMI 38.6 BP 160/58 H Blood Pressure Location Rt brachial Position Sitting Intake Visit Reasons: Retacrit/ LVM Hansard Reporter Required: No Accompanied by: Grand Child Allergies Crustaceans Allergy (Mild, Uncoded 10/31/23 08:02) SWELLING/HIVES HPI Comments Details: Elderly woman with history of longstanding hypertension with advanced CKD. 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 She was accompanied by her caregiver. Today she has no new complaints. No shortness of breath no nausea vomiting No edema. No urine symptoms. For the last week she has been taking Aleve. Recent serum creatinine is bumped up to 3.3 from a baseline of 2.8. 09/26/23 Recently had nausea, vomiting, diarrhea for 5 days. Cr is up to 5;Today she is feeling better 10/17/23 Accompanied by grand daughter Mey is feeling ok c/o leg swelling No dyspnea Appetite is ok She has gained 1 lb 12/20/23 Feels OK . Lost 7 lbs in 2 months Edema has improved No dyspnea Appetite is OK [facility] Medical History (System 10/31/23 @ 08:02 by Vanessa Morales) Hypertension High cholesterol Diabetes Gallbladder & bile duct stone with obstruction Social History Household Members: None Alcohol intake: never Patient Tobacco Use Status: Never used Tobacco Physical Exam Vital Signs: Last Vital Signs BP 160/58 H 01/03/24 12:12 BMI result Body Mass Index 38.6 Const General: comfortable Nutritional Appearance: well nourished Orientation/consciousness: patient oriented x3 HEENT Head: No normal to inspection Mouth: moist mucous membranes Neck Neck: Yes supple and Yes no JVD Resp Auscultation: clear to auscultation bilaterally and no rales Cardio Jugular venous distension: no JVD Palpation: no palpable S3 and no palpable S4 Heart sounds: no rubs GI Palpation (GI): Soft to palpation and nontender Percussion: No Fluid wave present General: Yes no CVA tenderness Back/Spine/Pelvis Back: no CVA tenderness Skin General skin exam: no rashes or lesions noted Neuro General: patient oriented x3 Extrem General: No clubbing and Yes pedal edema Results Reviewed Nephrology Results: Hgb 8.1 g/dl (12.0-16.0) L 12/09/23 WBC 8.8 X10*3/uL (4.8-10.8) 12/09/23 Plt Count 197 X10*3/uL (160-400) 12/09/23 Sodium 142 mmol/L (135-145) 12/09/23 Potassium 5.0 mmol/L (3.3-5.1) 12/09/23 Chloride 111 mmol/L (96-108) H 12/09/23 Carbon Dioxide 19 mmol/L (22-29) L 12/09/23 BUN 58 mg/dL (9-16) H 12/09/23 Creatinine 5.70 mg/dL (0.5-1.4) H* 12/09/23 Calcium 8.9 mg/dL (8.4-10.2) 12/09/23 Phosphorus 3.6 mg/dL (2.7-4.5) 09/21/23 PTH Intact 457.3 pg/mL (8.7-77.1) H 12/09/23 Urine Creatinine 165.32 mg/dL 09/21/23 Assessment & Plan Assessment & Plan (1) CKD (chronic kidney disease): Code(s): N18.9 - Chronic kidney disease, unspecified Category: Medical Plan Elderly woman with advanced renal failure due to diabetic nephropathy by biopsy. CKD 5 No s/s of uremia or fluid overload BP acceptable even without Metoprolol Agree with holding Metoprolol for now and watch 2nd hyperparathyroidism intact PTH was elevated. On Vit D3 recheck intact PTH and calcium and will consider adding Rocaltrol Anemia erythropoietin replacement therapy at this time. REceived [id number] U sq right arm Iron/TIBC are acceptable Due to edema, Keep LASIX at 20 mg QD Stay on low salt diet SHPT: Keep Calcitriol 0.25 mcg 3 x week Grandson was with her . Visited Dialysis clinic for Peritoneal dialysis education 2 weeks ago Orders: Orders Basic Metabolic Panel 3 Weeks N18.9 - Chronic kidney disease, unspecified Complete Blood Count no Diff 3 Weeks N18.9 - Chronic kidney disease, unspecified AMB Epoetin Injection Practice Supplied Today N18.9 - Chronic kidney disease, unspecified Medications: New epoetin anselmo-epbx 20,000 units subcut ONCE 1 mL 0RF Anemia N18.9 - Chronic kidney disease, unspecified Coding Level of Care Code Est Pt Level 4 (53517) Diagnoses CKD (chronic kidney disease) N18.9
== END 2024-01-03 12:32 | disposition home or self-care (01) ==
PROVIDERS: PCP Internal Medicine; Visit Provider Internal Medicine Hypertension Specialist
DX: N18.9 Chronic kidney disease, unspecified (principal)
CPT/HCPCS: 99214

== ENCOUNTER → 2024-01-03 12:10 | Outpatient (BNVA) | payer MEDICARE, MEDICAID, SELFPAY | PROVIDERS: PCP Internal Medicine; Visit Provider Internal Medicine Hypertension Specialist | DX: N18.9 Chronic kidney disease, unspecified (principal) | CPT/HCPCS: 96372; 99212; Q5106 ==

== ENCOUNTER 2024-01-27 07:31 | Outpatient (REF) | payer MEDICARE, MEDICAID, SELFPAY ==
[2024-01-27 08:04] LABS: Hematocrit 25.6 % (37.0-47.0); Hemoglobin 8.6 g/dl (12.0-16.0); Mean Corpuscular HGB Conc 33.6 g/dl (31.0-35.0); Mean Corpuscular Hemoglobin 28.8 pg (27.0-33.0); Mean Corpuscular Volume 85.6 fL (80.0-98.0); Mean Platelet Volume 11.3 fL (9.4-12.3); Platelet Count 197 X10*3/uL (160-400); Red Blood Count 2.99 X10*6/uL (4.20-5.50); Red Cell Distribution Width 14.7 % (11.0-16.0)
[2024-01-27 09:07] LABS: Anion Gap 14 (12-20); Blood Urea Nitrogen 86 mg/dL (9-16); Calcium 8.7 mg/dL (8.4-10.2); Carbon Dioxide 17 mmol/L (22-29); Chloride 112 mmol/L (96-108); Estimated Glomerular Filt Rate 5; Glucose Random 110 mg/dL (60-115); Potassium 5.1 mmol/L (3.3-5.1); Sodium 138 mmol/L (135-145)
== END 2024-01-27 07:32 | disposition home or self-care (01) ==
LOC: HO.LAB 07:31
PROVIDERS: PCP Internal Medicine; Visit Provider Internal Medicine Hypertension Specialist
DX: N18.9 Chronic kidney disease, unspecified (principal)
CPT/HCPCS: 36415; 80048; 85027

== ENCOUNTER 2024-01-31 11:58 | Outpatient (AMB) | payer MEDICARE, MEDICAID, SELFPAY ==
[2024-01-31 11:52] VITALS: BP 154/62; PULSE 74; O2SAT 96; BMI 37.9
--- NOTE | 2024-01-31 11:52 | HO.NEPHOV_ITS ---
Vital Signs 01/31/24 11:52 Height 5 ft 5 in Weight 228 lb BMI 37.9 BP 154/62 H Blood Pressure Location Rt brachial Position Sitting Pulse 74 Pulse Source Pulse Oximeter Pulse Oximetry (%) 96 Oxygen Delivery Method Room Air Intake Visit Reasons: Retacrit/ 4 weeks fu/ Conf Speech Therapy Director Required: No Accompanied by: Grand Child Allergies Crustaceans Allergy (Mild, Uncoded 10/31/23 08:02) SWELLING/HIVES HPI Comments Details: Elderly woman with history of longstanding hypertension with advanced CKD. 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 She was accompanied by her caregiver. Today she has no new complaints. No shortness of breath no nausea vomiting No edema. No urine symptoms. For the last week she has been taking Aleve. Recent serum creatinine is bumped up to 3.3 from a baseline of 2.8. 09/26/23 Recently had nausea, vomiting, diarrhea for 5 days. Cr is up to 5;Today she is feeling better 10/17/23 Accompanied by grand daughter Mey is feeling ok c/o leg swelling No dyspnea Appetite is ok She has gained 1 lb 12/20/23 Feels OK . Lost 7 lbs in 2 months Edema has improved No dyspnea Appetite is OK [facility] Medical History (Updated 01/31/24 @ 14:46 by Guero Zuniga MD) Hypertension High cholesterol Diabetes Gallbladder & bile duct stone with obstruction Social History Household Members: None Alcohol intake: never Patient Tobacco Use Status: Never used Tobacco Physical Exam Vital Signs: Last Vital Signs Pulse 74 01/31/24 11:52 BP 154/62 H 01/31/24 11:52 Pulse Ox 96 01/31/24 11:52 Oxygen Delivery Method Room Air 01/31/24 11:52 BMI result Body Mass Index 37.9 Const General: comfortable; No acute distress Orientation/consciousness: patient oriented x3 Eyes General: appearance normal, both eyes and all related structures Visual Coleman: normal visual coleman by confrontation Neck Neck: Yes supple and Yes no JVD Resp Effort & Inspection: normal respiratory effort and respiratory effort not decreased Auscultation: rhonchi Cardio Palpation: no palpable S3 and no palpable S4 Heart sounds: no rubs GI Inspection: Yes normal to inspection Palpation (GI): Soft to palpation Percussion: Yes normal to percussion Auscultation: normal bowel sounds General: Yes no CVA tenderness Back/Spine/Pelvis Back: no CVA tenderness Skin General skin exam: no petechiae and no purpura Neuro General: patient oriented x3 and no focal motor deficits Extrem General: No clubbing and No edema Results Reviewed Nephrology Results: Hgb 8.6 g/dl (12.0-16.0) L 01/27/24 WBC 8.0 X10*3/uL (4.8-10.8) 01/27/24 Plt Count 197 X10*3/uL (160-400) 01/27/24 Sodium 138 mmol/L (135-145) 01/27/24 Potassium 5.1 mmol/L (3.3-5.1) 01/27/24 Chloride 112 mmol/L (96-108) H 01/27/24 Carbon Dioxide 17 mmol/L (22-29) L 01/27/24 BUN 86 mg/dL (9-16) H 01/27/24 Creatinine 7.50 mg/dL (0.5-1.4) H* 01/27/24 Calcium 8.7 mg/dL (8.4-10.2) 01/27/24 PTH Intact 457.3 pg/mL (8.7-77.1) H 12/09/23 Assessment & Plan Assessment & Plan (1) CKD (chronic kidney disease): Code(s): N18.9 - Chronic kidney disease, unspecified Category: Medical (2) Anemia due to chronic kidney disease: Code(s): N18.9 - Chronic kidney disease, unspecified; D63.1 - Anemia in chronic kidney disease Category: Medical Plan Elderly woman with advanced renal failure due to diabetic nephropathy by biopsy. CKD 5 No s/s of uremia or fluid overload Maintain blood pressure less than 130/80 Agree with holding Metoprolol for now and watch 2nd hyperparathyroidism intact PTH was elevated. On Vit D3 recheck intact PTH and calcium and will consider adding Rocaltrol Anemia erythropoietin replacement therapy at this time. REceived [id number] U sq right arm Iron/TIBC are acceptable Due to edema, Keep LASIX at 20 mg QD Stay on low salt diet SHPT: Keep Calcitriol 0.25 mcg 3 x week Grandson was with her . Visited Dialysis clinic for Peritoneal dialysis education 2 weeks ago She is approaching end stage renal disease. EGFR is 5 mL/minute No overt signs or symptoms of uremia. I will referred to IR for insertion of peritoneal dialysis catheter. Orders: Orders AMB Epoetin Injection Practice Supplied Today D63.1 - Anemia in chronic kidney disease, N18.9 - Chronic kidney disease, unspecified Referrals Interventional Radiology Referral N18.9 - Chronic kidney disease, unspecified Medications: New epoetin anselmo-epbx 20,000 units subcut ONCE 1 mL 0RF Anemia D63.1 - Anemia in chronic kidney disease, N18.9 - Chronic kidney disease, unspecified Coding Level of Care Code Est Pt Level 4 (51851) Diagnoses CKD (chronic kidney disease) N18.9 Anemia due to chronic kidney disease N18.9; D63.1
== END 2024-01-31 12:05 | disposition home or self-care (01) ==
PROVIDERS: PCP Internal Medicine; Visit Provider Internal Medicine Hypertension Specialist
DX: N18.9 Chronic kidney disease, unspecified (principal); D63.1 Anemia in chronic kidney disease
CPT/HCPCS: 99214

== ENCOUNTER → 2024-01-31 11:58 | Outpatient (BNVA) | payer MEDICARE, MEDICAID, SELFPAY | PROVIDERS: PCP Internal Medicine; Visit Provider Internal Medicine Hypertension Specialist | DX: E11.22 Type 2 diabetes mellitus with diabetic chronic kidney disease (principal); N18.5 Chronic kidney disease, stage 5; D63.1 Anemia in chronic kidney disease | CPT/HCPCS: 96372; 99212; Q5106 ==

== ENCOUNTER 2024-02-21 13:34 | Outpatient (AMB) | payer MEDICARE, MEDICAID, SELFPAY ==
[2024-02-21 13:39] VITALS: BP 140/56; PULSE 82; O2SAT 96; BMI 38.1
--- NOTE | 2024-02-21 13:39 | HO.NEPHOV ---
Vital Signs 02/21/24 13:39 Height 5 ft 5 in Weight 229 lb BMI 38.1 BP 140/56 H Blood Pressure Location Lt brachial Position Sitting Pulse 82 Pulse Source Pulse Oximeter Pulse Oximetry (%) 96 Oxygen Delivery Method Room Air Intake Visit Reasons: CKD- LVM Director Of Market Intelligence Required: No Accompanied by: Grandson Allergies Crustaceans Allergy (Mild, Uncoded 10/31/23 08:02) SWELLING/HIVES Medication List - Last Reconciled 02/21/24 by Guero Zuniga MD calcitriol 0.25 mcg PO 3XW cholecalciferol (vitamin D3) 50 mcg PO DAILY furosemide 20 mg PO DAILY glimepiride 1 mg PO DAILY nifedipine ER 60 mg PO DAILY omeprazole 20 mg PO DAILY simvastatin 40 mg PO DAILY sodium zirconium cyclosilicate (Lokelma) 5 grams PO Q OTHER DAY HPI Comments Details: Elderly woman with history of longstanding hypertension with advanced CKD. 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 She was accompanied by her caregiver. Today she has no new complaints. No shortness of breath no nausea vomiting No edema. No urine symptoms. For the last week she has been taking Aleve. Recent serum creatinine is bumped up to 3.3 from a baseline of 2.8. 09/26/23 Recently had nausea, vomiting, diarrhea for 5 days. Cr is up to 5;Today she is feeling better 10/17/23 Accompanied by grand daughter Mey is feeling ok c/o leg swelling No dyspnea Appetite is ok She has gained 1 lb 12/20/23 Feels OK . Lost 7 lbs in 2 months Edema has improved No dyspnea Appetite is OK [facility] Medical History (Updated 01/31/24 @ 14:46 by Guero Zuniga MD) Hypertension High cholesterol Diabetes Gallbladder & bile duct stone with obstruction Social History Household Members: None Alcohol intake: never Patient Tobacco Use Status: Never used Tobacco Physical Exam Vital Signs: Last Vital Signs Pulse 82 02/21/24 13:39 BP 140/56 H 02/21/24 13:39 Pulse Ox 96 02/21/24 13:39 Oxygen Delivery Method Room Air 02/21/24 13:39 BMI result Body Mass Index 38.1 Const General: comfortable; No acute distress Orientation/consciousness: patient oriented x3 Eyes General: appearance normal, both eyes and all related structures Visual Coleman: normal visual coleman by confrontation Neck Neck: Yes supple and Yes no JVD Resp Effort & Inspection: normal respiratory effort and respiratory effort not decreased Auscultation: rhonchi Cardio Palpation: no palpable S3 and no palpable S4 Heart sounds: no rubs GI Inspection: Yes normal to inspection Palpation (GI): Soft to palpation Percussion: Yes normal to percussion Auscultation: normal bowel sounds General: Yes no CVA tenderness Back/Spine/Pelvis Back: no CVA tenderness Skin General skin exam: no petechiae and no purpura Neuro General: patient oriented x3 and no focal motor deficits Extrem General: No clubbing and No edema Office Meds epoetin anselmo-epbx 20,000 unit/mL injection solution Performing Provider: Guero Zuniga MD Performing Location: [facility] [place] Kid[facility] Administered by: Guero Zuniga MD on 02/21/24 14:44 Dose Route Admin Location Dispensed Lot Number Expiration Date [facility] On [employer] Counselor 20,000 unit subcut 1 mL [id number] 02/23/28 3263-3632-22 [employer] Results Reviewed Nephrology Results: Hgb 8.6 g/dl (12.0-16.0) L 01/27/24 WBC 8.0 X10*3/uL (4.8-10.8) 01/27/24 Plt Count 197 X10*3/uL (160-400) 01/27/24 Sodium 138 mmol/L (135-145) 01/27/24 Potassium 5.1 mmol/L (3.3-5.1) 01/27/24 Chloride 112 mmol/L (96-108) H 01/27/24 Carbon Dioxide 17 mmol/L (22-29) L 01/27/24 BUN 86 mg/dL (9-16) H 01/27/24 Creatinine 7.50 mg/dL (0.5-1.4) H* 01/27/24 Calcium 8.7 mg/dL (8.4-10.2) 01/27/24 PTH Intact 457.3 pg/mL (8.7-77.1) H 12/09/23 Assessment & Plan Assessment & Plan (1) CKD (chronic kidney disease): Code(s): N18.9 - Chronic kidney disease, unspecified Category: Medical (2) Anemia due to chronic kidney disease: Code(s): N18.9 - Chronic kidney disease, unspecified; D63.1 - Anemia in chronic kidney disease Category: Medical Plan Elderly woman with advanced renal failure due to diabetic nephropathy by biopsy. CKD 5 No s/s of uremia or fluid overload Maintain blood pressure less than 130/80 Agree with holding Metoprolol for now and watch 2nd hyperparathyroidism intact PTH was elevated. On Vit D3 recheck intact PTH and calcium and will consider adding Rocaltrol Anemia erythropoietin replacement therapy at this time. Received [id number] U sq right arm [id number] Exp Iron/TIBC are acceptable Due to edema, Keep LASIX at 20 mg QD Stay on low salt diet SHPT: Keep Calcitriol 0.25 mcg 3 x week Visited Dialysis clinic for Peritoneal dialysis education 2 weeks ago She is approaching end stage renal disease. EGFR is 5 mL/minute No overt signs or symptoms of uremia. Has appt on Mar 01 to see for insertion of peritoneal dialysis catheter. Orders: Orders Basic Metabolic Panel 3 Weeks N18.9 - Chronic kidney disease, unspecified Complete Blood Count Auto Diff 3 Weeks N18.9 - Chronic kidney disease, unspecified AMB Epoetin Injection Practice Supplied Today N40.1 - Benign prostatic hyperplasia with lower urinary tract symptoms Medications: New epoetin anselmo-epbx 20,000 units subcut ONCE 1 mL 0RF anemia N40.1 - Benign prostatic hyperplasia with lower urinary tract symptoms Coding Level of Care Code Est Pt Level 3 (38768) Diagnoses CKD (chronic kidney disease) N18.9 Anemia due to chronic kidney disease N18.9; D63.1
== END 2024-02-21 13:54 | disposition home or self-care (01) ==
PROVIDERS: PCP Internal Medicine; Visit Provider Internal Medicine Hypertension Specialist
DX: E11.22 Type 2 diabetes mellitus with diabetic chronic kidney disease (principal); N18.5 Chronic kidney disease, stage 5; D63.1 Anemia in chronic kidney disease
CPT/HCPCS: 99213

== ENCOUNTER → 2024-02-21 13:34 | Outpatient (BNVA) | payer MEDICARE, MEDICAID, SELFPAY | PROVIDERS: PCP Internal Medicine; Visit Provider Internal Medicine Hypertension Specialist | DX: N18.9 Chronic kidney disease, unspecified (principal); D63.1 Anemia in chronic kidney disease | CPT/HCPCS: 96372; 99212; Q5106 ==

== ENCOUNTER 2024-03-15 06:22 | Outpatient (REF) | payer MEDICARE, SELFPAY ==
[2024-03-15 06:35] LABS: MANUAL DIFF FLAG NO
[2024-03-15 07:09] LABS: Basophils Percent Auto 0.5 % (0-2); Eosinophils Absolute Auto 0.7 X10*3/uL (0.0-0.4); Eosinophils Percent Auto 9.9 % (0-4); Hematocrit 29.9 % (37.0-47.0); Hemoglobin 9.8 g/dl (12.0-16.0); Imm Gran Abs Auto 0.01 X10*3/uL (0.00-0.03); Imm Gran Pct Auto 0.1 % (0.0-0.4); Lymphocytes Absolute Auto 1.8 X10*3/uL (1.2-4.9); Lymphocytes Percent Auto 24.6 % (20-40); Mean Corpuscular HGB Conc 32.8 g/dl (31.0-35.0); Mean Corpuscular Hemoglobin 27.4 pg (27.0-33.0); Mean Corpuscular Volume 83.5 fL (80.0-98.0); Mean Platelet Volume 10.7 fL (9.4-12.3); Monocytes Absolute Auto 0.9 X10*3/uL (0.1-1.2); Monocytes Percent Auto 12.6 % (2-11); Neutrophils Absolute Auto 3.8 x10*3/uL (2.0-8.3); Neutrophils Percent Auto 52.3 % (45-73); Platelet Count 163 X10*3/uL (160-400); Red Blood Count 3.58 X10*6/uL (4.20-5.50); Red Cell Distribution Width 14.6 % (11.0-16.0); White Blood Count 7.4 X10*3/uL (4.8-10.8)
[2024-03-15 07:36] LABS: Anion Gap 17 (12-20); Blood Urea Nitrogen 60 mg/dL (9-16); Calcium 8.9 mg/dL (8.4-10.2); Carbon Dioxide 19 mmol/L (22-29); Chloride 109 mmol/L (96-108); Glucose Random 112 mg/dL (60-115); Potassium 4.5 mmol/L (3.3-5.1); Sodium 140 mmol/L (135-145)
[2024-03-15 08:43] LABS: Estimated Glomerular Filt Rate 6
== END 2024-03-15 06:23 | disposition home or self-care (01) ==
LOC: HO.LAB 06:22
PROVIDERS: PCP Internal Medicine; Visit Provider Internal Medicine Hypertension Specialist
DX: N18.9 Chronic kidney disease, unspecified (principal)
CPT/HCPCS: 36415; 80048; 85025

== ENCOUNTER 2024-03-22 11:06 | Outpatient (AMB) | payer MEDICARE, MEDICAID, SELFPAY ==
[2024-03-22 11:15] VITALS: BP 138/60; PULSE 72; O2SAT 96; BMI 36.3
--- NOTE | 2024-03-22 11:15 | HO.NEPHOV ---
Vital Signs 03/22/24 11:15 Height 5 ft 5 in Weight 218 lb BMI 36.3 BP 138/60 Blood Pressure Location Rt brachial Position Sitting Pulse 72 Pulse Source Pulse Oximeter Pulse Oximetry (%) 96 Oxygen Delivery Method Room Air Intake Visit Reasons: Retacrit 1 MO FU/ Conf Maitre D' Required: No Accompanied by: Grand Child Allergies Crustaceans Allergy (Mild, Uncoded 10/31/23 08:02) SWELLING/HIVES Medication List - Last Reconciled 03/22/24 by Guero Zuniga MD calcitriol 0.25 mcg PO 3XW cholecalciferol (vitamin D3) 50 mcg PO DAILY furosemide 20 mg PO DAILY glimepiride 1 mg PO DAILY nifedipine ER 60 mg PO DAILY omeprazole 20 mg PO DAILY simvastatin 40 mg PO DAILY sodium zirconium cyclosilicate (Lokelma) 5 grams PO Q OTHER DAY HPI Comments Details: Elderly woman with history of longstanding hypertension with advanced CKD. 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 She was accompanied by her caregiver. Today she has no new complaints. No shortness of breath no nausea vomiting No edema. No urine symptoms. For the last week she has been taking Aleve. Recent serum creatinine is bumped up to 3.3 from a baseline of 2.8. 09/26/23 Recently had nausea, vomiting, diarrhea for 5 days. Cr is up to 5;Today she is feeling better 10/17/23 Accompanied by grand daughter Mey is feeling ok c/o leg swelling No dyspnea Appetite is ok She has gained 1 lb 12/20/23 Feels OK . Lost 7 lbs in 2 months Edema has improved No dyspnea Appetite is OK 03/22/24: Doing well. Came with son VÍCTOR Medical History (Updated 01/31/24 @ 14:46 by Guero Zuniga MD) Hypertension High cholesterol Diabetes Gallbladder & bile duct stone with obstruction Social History Household Members: None Alcohol intake: never Patient Tobacco Use Status: Never used Tobacco Physical Exam Vital Signs: Last Vital Signs Pulse 72 03/22/24 11:15 BP 138/60 03/22/24 11:15 Pulse Ox 96 03/22/24 11:15 Oxygen Delivery Method Room Air 03/22/24 11:15 BMI result Body Mass Index 36.3 Const General: comfortable; No acute distress Orientation/consciousness: patient oriented x3 Eyes General: appearance normal, both eyes and all related structures Visual Coleman: normal visual coleman by confrontation Neck Neck: Yes supple and Yes no JVD Resp Effort & Inspection: normal respiratory effort and respiratory effort not decreased Auscultation: rhonchi Cardio Palpation: no palpable S3 and no palpable S4 Heart sounds: no rubs GI Inspection: Yes normal to inspection Palpation (GI): Soft to palpation Percussion: Yes normal to percussion Auscultation: normal bowel sounds General: Yes no CVA tenderness Back/Spine/Pelvis Back: no CVA tenderness Skin General skin exam: no petechiae and no purpura Neuro General: patient oriented x3 and no focal motor deficits Extrem General: No clubbing and No edema Office Meds epoetin anselmo-epbx 20,000 unit/mL injection solution Performing Provider: Guero Zuniga MD Performing Location: [facility] [place] Kid[facility] Administered by: Guero Zuniga MD on 03/22/24 11:29 Dose Route Admin Location Dispensed Lot Number Expiration Date [facility] Office Cashier 20,000 unit subcut 1 mL [id number] 08/05/24 3936-5117-12 [employer] Results Reviewed Nephrology Results: Hgb 9.8 g/dl (12.0-16.0) L 03/15/24 WBC 7.4 X10*3/uL (4.8-10.8) 03/15/24 Plt Count 163 X10*3/uL (160-400) 03/15/24 Sodium 140 mmol/L (135-145) 03/15/24 Potassium 4.5 mmol/L (3.3-5.1) 03/15/24 Chloride 109 mmol/L (96-108) H 03/15/24 Carbon Dioxide 19 mmol/L (22-29) L 03/15/24 BUN 60 mg/dL (9-16) H 03/15/24 Creatinine 6.65 mg/dL (0.5-1.4) H* 03/15/24 Calcium 8.9 mg/dL (8.4-10.2) 03/15/24 PTH Intact 457.3 pg/mL (8.7-77.1) H 12/09/23 Assessment & Plan Assessment & Plan (1) CKD (chronic kidney disease): Code(s): N18.9 - Chronic kidney disease, unspecified Category: Medical (2) Anemia due to chronic kidney disease: Code(s): N18.9 - Chronic kidney disease, unspecified; D63.1 - Anemia in chronic kidney disease Category: Medical Plan Elderly woman with advanced renal failure due to diabetic nephropathy by biopsy. CKD 5 No s/s of uremia or fluid overload Maintain blood pressure less than 130/80 Agree with holding Metoprolol for now and watch 2nd hyperparathyroidism intact PTH was elevated. On Vit D3 recheck intact PTH and calcium and will consider adding Rocaltrol Anemia erythropoietin replacement therapy at this time. Received [id number] U sq right arm Iron/TIBC are acceptable Due to edema, Keep LASIX at 20 mg QD Stay on low salt diet SHPT: Keep Calcitriol 0.25 mcg 3 x week Visited Dialysis clinic for Peritoneal dialysis education 2 weeks ago She is approaching end stage renal disease. EGFR is 5 mL/minute No overt signs or symptoms of uremia. Orders: Orders Basic Metabolic Panel 3 Weeks D63.1 - Anemia in chronic kidney disease, N18.9 - Chronic kidney disease, unspecified Complete Blood Count Auto Diff 3 Weeks D63.1 - Anemia in chronic kidney disease, N18.9 - Chronic kidney disease, unspecified Phosphorus 3 Weeks D63.1 - Anemia in chronic kidney disease, N18.9 - Chronic kidney disease, unspecified Parathyroid Hormone Intact 3 Weeks D63.1 - Anemia in chronic kidney disease, N18.9 - Chronic kidney disease, unspecified AMB Epoetin Injection Practice Supplied Today N40.1 - Benign prostatic hyperplasia with lower urinary tract symptoms Medications: New epoetin anselmo-epbx 20,000 units subcut ONCE 1 mL 0RF anemia N40.1 - Benign prostatic hyperplasia with lower urinary tract symptoms Refilled nifedipine ER 60 mg PO DAILY 90 tabs 1RF Coding Level of Care Code Est Pt Level 4 (39088) Diagnoses CKD (chronic kidney disease) N18.9 Anemia due to chronic kidney disease N18.9; D63.1
== END 2024-03-22 11:43 | disposition home or self-care (01) ==
PROVIDERS: PCP Internal Medicine; Visit Provider Internal Medicine Hypertension Specialist
DX: E11.22 Type 2 diabetes mellitus with diabetic chronic kidney disease (principal); N18.5 Chronic kidney disease, stage 5; D63.1 Anemia in chronic kidney disease
CPT/HCPCS: 99214

== ENCOUNTER → 2024-03-22 11:06 | Outpatient (BNVA) | payer MEDICARE, MEDICAID, SELFPAY | PROVIDERS: PCP Internal Medicine; Visit Provider Internal Medicine Hypertension Specialist | DX: I12.0 Hypertensive chronic kidney disease with stage 5 chronic kidney disease or end stage renal disease (principal); E11.22 Type 2 diabetes mellitus with diabetic chronic kidney disease; N18.5 Chronic kidney disease, stage 5; D63.1 Anemia in chronic kidney disease | CPT/HCPCS: 96372; 99212; Q5106 ==

== ENCOUNTER 2024-04-02 09:54 | Outpatient (REF) | payer MEDICARE, MEDICAID, SELFPAY ==
[2024-04-02 10:15] LABS: MANUAL DIFF FLAG NO
[2024-04-02 10:24] LABS: Basophils Percent Auto 0.3 % (0-2); Eosinophils Absolute Auto 0.6 X10*3/uL (0.0-0.4); Eosinophils Percent Auto 5.6 % (0-4); Hematocrit 28.6 % (37.0-47.0); Hemoglobin 9.1 g/dl (12.0-16.0); Imm Gran Abs Auto 0.04 X10*3/uL (0.00-0.03); Imm Gran Pct Auto 0.4 % (0.0-0.4); Lymphocytes Absolute Auto 1.1 X10*3/uL (1.2-4.9); Lymphocytes Percent Auto 10.6 % (20-40); Mean Corpuscular HGB Conc 31.8 g/dl (31.0-35.0); Mean Corpuscular Hemoglobin 27.2 pg (27.0-33.0); Mean Corpuscular Volume 85.4 fL (80.0-98.0); Mean Platelet Volume 10.6 fL (9.4-12.3); Monocytes Absolute Auto 0.6 X10*3/uL (0.1-1.2); Monocytes Percent Auto 6.3 % (2-11); Neutrophils Absolute Auto 7.7 x10*3/uL (2.0-8.3); Neutrophils Percent Auto 76.8 % (45-73); Platelet Count 203 X10*3/uL (160-400); Red Blood Count 3.35 X10*6/uL (4.20-5.50)
[2024-04-02 10:53] LABS: Parathyroid Hormone Intact 616.3 pg/mL (8.7-77.1)
[2024-04-02 11:16] LABS: HBc Num1 2.55 S/CO (0.00-0.79); HBsAGNum1 0.27 S/CO (0.00-0.99); Hepatitis A Antibody IgM 0.25 Index (0-0.79); Hepatitis B Surface Antigen Negative (Negative); ~HepC Num1 0.23 S/CO (0.00-0.79); ~Hepatitis A Antibody IgM Nonreactive (Nonreactive); ~Hepatitis C Antibody Nonreactive (Nonreactive)
[2024-04-02 11:36] LABS: Anion Gap 14 (12-20); Blood Urea Nitrogen 70 mg/dL (9-16); Calcium 8.7 mg/dL (8.4-10.2); Carbon Dioxide 21 mmol/L (22-29); Chloride 113 mmol/L (96-108); Estimated Glomerular Filt Rate 5; Glucose Random 120 mg/dL (60-115); Phosphorus 4.3 mg/dL (2.7-4.5); Potassium 6.3 mmol/L (3.3-5.1); Sodium 142 mmol/L (135-145)
[2024-04-02 14:43] LABS: HBS Num2 8.16 mIU/mL (0-7.99); HBS Num3 7.64 mIU/mL (0-7.99); HBc Num2 2.58 S/CO; HBc Num3 0.66 S/CO; Hepatitis B Core Antibody Reactive (Nonreactive); ~Hepatitis B Surface Antibody GRAYZONE (Nonreactive)
[2024-04-04 01:17] LABS: Hepatitis B Core Antibody IgM NON-REACTIVE (NON-REACTIVE)
== END 2024-04-02 09:55 | disposition home or self-care (01) ==
LOC: HO.LAB 09:54
PROVIDERS: Absent Provider Internal Medicine Nephrology; PCP Internal Medicine; Visit Provider Internal Medicine Hypertension Specialist
DX: N18.9 Chronic kidney disease, unspecified (principal); D63.1 Anemia in chronic kidney disease; N18.6 End stage renal disease
CPT/HCPCS: 36415; 80048; 83970; 84100; 85025; 86704; 86705; 86706; 86709; 86803; 87340

== ENCOUNTER 2024-04-14 08:59 | Outpatient (REF) | payer MEDICARE, MEDICAID, SELFPAY ==
[2024-04-16 04:15] LABS: HBS Num1 7.62 mIU/mL (0-7.99); HBc Num1 2.83 S/CO (0.00-0.79); HBsAGNum1 0.27 S/CO (0.00-0.99); Hepatitis B Surface Antigen Negative (Negative); ~Hepatitis B Surface Antibody NONREACTIVE (Nonreactive)
[2024-04-16 05:10] LABS: HBc Num2 2.81 S/CO; HBc Num3 2.88 S/CO; Hepatitis B Core Antibody Reactive (Nonreactive)
[2024-04-17 10:44] LABS: Hepatitis B Core Antibody IgM NON-REACTIVE (NON-REACTIVE)
== END 2024-04-14 09:00 | disposition home or self-care (01) ==
LOC: HO.LAB 08:59
PROVIDERS: PCP Internal Medicine; Visit Provider Internal Medicine Nephrology
DX: N18.6 End stage renal disease (principal)
CPT/HCPCS: 36415; 86704; 86705; 86706; 87340

== ENCOUNTER 2024-04-19 11:10 | Outpatient (AMB) | payer MEDICARE, MEDICAID, SELFPAY ==
[2024-04-19 11:08] VITALS: BP 144/62; PULSE 71; O2SAT 99; BMI 36.8
--- NOTE | 2024-04-19 11:08 | HO.NEPHOV_ITS ---
Vital Signs 04/19/24 11:08 Height 5 ft 5 in Weight 221 lb BMI 36.8 BP 144/62 H Blood Pressure Location Lt brachial Position Sitting Pulse 71 Pulse Source Pulse Oximeter Pulse Oximetry (%) 99 Oxygen Delivery Method Room Air Intake Visit Reasons: Retacrit 1 MO FU/ Conf Repairer Maintenance Building Required: Yes Repairer Maintenance Building Services: Repairer Maintenance Building Present ([facility] interprecter form signed and scanned into chart.) Accompanied by: Grand Child Allergies Crustaceans Allergy (Mild, Uncoded 10/31/23 08:02) SWELLING/HIVES Medication List - Last Reconciled 04/19/24 by Guero Zuniga MD calcitriol 0.25 mcg PO 3XW cholecalciferol (vitamin D3) 50 mcg PO DAILY furosemide 20 mg PO DAILY glimepiride 1 mg PO DAILY nifedipine ER 60 mg PO DAILY omeprazole 20 mg PO DAILY simvastatin 40 mg PO DAILY sodium zirconium cyclosilicate (Lokelma) 10 grams PO Q OTHER DAY HPI Comments Details: Elderly woman with history of longstanding hypertension with advanced CKD. 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 She was accompanied by her caregiver. Today she has no new complaints. No shortness of breath no nausea vomiting No edema. No urine symptoms. For the last week she has been taking Aleve. Recent serum creatinine is bumped up to 3.3 from a baseline of 2.8. 09/26/23 Recently had nausea, vomiting, diarrhea for 5 days. Cr is up to 5;Today she is feeling better 10/17/23 Accompanied by grand daughter Mey is feeling ok c/o leg swelling No dyspnea Appetite is ok She has gained 1 lb 12/20/23 Feels OK . Lost 7 lbs in 2 months Edema has improved No dyspnea Appetite is OK 03/22/24: Doing well. Came with son 04/19/2024. PD catheter has been inserted. She will have this flush tomorrow. Overall doing well no new issues. [facility] Medical History (Updated 03/29/24 @ 19:02 by Zak Phillips MD) Hypertension High cholesterol Diabetes Gallbladder & bile duct stone with obstruction Social History Household Members: None Alcohol intake: never Patient Tobacco Use Status: Never used Tobacco Physical Exam Vital Signs: Last Vital Signs Pulse 71 04/19/24 11:08 BP 144/62 H 04/19/24 11:08 Pulse Ox 99 04/19/24 11:08 Oxygen Delivery Method Room Air 04/19/24 11:08 BMI result Body Mass Index 36.8 Office Meds epoetin anselmo-epbx 20,000 unit/mL injection solution Performing Provider: Guero Zuniga MD Performing Location: [facility] Administered by: Guero Zuniga MD on 04/19/24 11:25 Dose Route Admin Location Dispensed Lot Number Expiration Date [facility] Barrel Rifler Button 20,000 unit subcut left arm 1 mL [id number] 06/24/25 6637-3654-62 [employer] Results Reviewed Nephrology Results: Hgb 9.1 g/dl (12.0-16.0) L 04/02/24 WBC 10.0 X10*3/uL (4.8-10.8) 04/02/24 Plt Count 203 X10*3/uL (160-400) 04/02/24 Sodium 142 mmol/L (135-145) 04/02/24 Potassium 6.3 mmol/L (3.3-5.1) H* 04/02/24 Chloride 113 mmol/L (96-108) H 04/02/24 Carbon Dioxide 21 mmol/L (22-29) L 04/02/24 BUN 70 mg/dL (9-16) H 04/02/24 Creatinine 7.25 mg/dL (0.5-1.4) H* 04/02/24 Calcium 8.7 mg/dL (8.4-10.2) 04/02/24 Phosphorus 4.3 mg/dL (2.7-4.5) 04/02/24 PTH Intact 616.3 pg/mL (8.7-77.1) H 04/02/24 Assessment & Plan Assessment & Plan (1) CKD (chronic kidney disease): Code(s): N18.9 - Chronic kidney disease, unspecified Category: Medical (2) Anemia due to chronic kidney disease: Code(s): N18.9 - Chronic kidney disease, unspecified; D63.1 - Anemia in chronic kidney disease Category: Medical Plan Elderly woman with advanced renal failure due to diabetic nephropathy by biopsy. CKD 5 No s/s of uremia or fluid overload Maintain blood pressure less than 130/80 Agree with holding Metoprolol for now and watch 2nd hyperparathyroidism intact PTH was elevated. On Vit D3 recheck intact PTH and calcium and will consider adding Rocaltrol Anemia erythropoietin replacement therapy at this time. Received 51853 U sq right arm Iron/TIBC are acceptable Due to edema, Keep LASIX at 20 mg QD Stay on low salt diet SHPT: Keep Calcitriol 0.25 mcg 3 x week Visited Dialysis clinic for Peritoneal dialysis education 2 weeks ago She is approaching end stage renal disease. EGFR is 5 mL/minute No overt signs or symptoms of uremia. Orders: Orders AMB Epoetin Injection Practice Supplied 04/19/24 N40.1 - Benign prostatic hyperplasia with lower urinary tract symptoms Basic Metabolic Panel 2 Weeks D63.1 - Anemia in chronic kidney disease, N18.9 - Chronic kidney disease, unspecified Complete Blood Count Auto Diff 2 Weeks D63.1 - Anemia in chronic kidney disease, N18.9 - Chronic kidney disease, unspecified Parathyroid Hormone Intact 2 Weeks D63.1 - Anemia in chronic kidney disease, N18.9 - Chronic kidney disease, unspecified Phosphorus 2 Weeks D63.1 - Anemia in chronic kidney disease, N18.9 - Chronic kidney disease, unspecified Coding Level of Care Code Est Pt Level 4 (41586) Diagnoses CKD (chronic kidney disease) N18.9 Anemia due to chronic kidney disease N18.9; D63.1
== END 2024-04-19 11:58 | disposition home or self-care (01) ==
PROVIDERS: PCP Internal Medicine; Visit Provider Internal Medicine Hypertension Specialist
DX: I12.0 Hypertensive chronic kidney disease with stage 5 chronic kidney disease or end stage renal disease (principal); E11.22 Type 2 diabetes mellitus with diabetic chronic kidney disease; N18.5 Chronic kidney disease, stage 5; D63.1 Anemia in chronic kidney disease
CPT/HCPCS: 99214

== ENCOUNTER → 2024-04-19 11:10 | Outpatient (BNVA) | payer MEDICARE, MEDICAID, SELFPAY | PROVIDERS: PCP Internal Medicine; Visit Provider Internal Medicine Hypertension Specialist | DX: I12.9 Hypertensive chronic kidney disease with stage 1 through stage 4 chronic kidney disease, or unspecified chronic kidney disease (principal); N18.9 Chronic kidney disease, unspecified; D63.1 Anemia in chronic kidney disease; Z51.81 Encounter for therapeutic drug level monitoring | CPT/HCPCS: 96372; 99212; Q5106 ==

== ENCOUNTER → 2024-04-24 | Outpatient (BNV) | payer MEDICARE, MEDICAID, SELFPAY | PROVIDERS: PCP Internal Medicine; Visit Provider Internal Medicine Nephrology | DX: N18.6 End stage renal disease (principal) | CPT/HCPCS: 90962 ==

== ENCOUNTER 2024-05-14 09:20 | Outpatient (AMB) | payer MEDICARE, MEDICAID, SELFPAY ==
[2024-05-14 09:19] VITALS: BP 146/54; PULSE 50; O2SAT 98; BMI 37.3
--- NOTE | 2024-05-14 09:19 | HO.NEPHOV_ITS ---
Vital Signs 05/14/24 09:19 Height 5 ft 5 in Weight 224 lb BMI 37.3 BP 146/54 H Blood Pressure Location Lt brachial Position Sitting Pulse 50 Pulse Source Pulse Oximeter Pulse Oximetry (%) 98 Oxygen Delivery Method Room Air Intake Visit Reasons: Retacrit 3 weeks fu/ Conf Rouge Presser Required: Yes Rouge Presser Services: Rouge Presser Present (Daughter Amanda will be translating) Accompanied by: Daughter Allergies Crustaceans Allergy (Mild, Uncoded 10/31/23 08:02) SWELLING/HIVES HPI Comments Details: Elderly woman with history of longstanding hypertension with advanced CKD. 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 She was accompanied by her caregiver. Today she has no new complaints. No shortness of breath no nausea vomiting No edema. No urine symptoms. For the last week she has been taking Aleve. Recent serum creatinine is bumped up to 3.3 from a baseline of 2.8. 09/26/23 Recently had nausea, vomiting, diarrhea for 5 days. Cr is up to 5;Today she is feeling better 10/17/23 Accompanied by grand daughter Mey is feeling ok c/o leg swelling No dyspnea Appetite is ok She has gained 1 lb 12/20/23 Feels OK . Lost 7 lbs in 2 months Edema has improved No dyspnea Appetite is OK 03/22/24: Doing well. Came with son 04/19/2024. PD catheter has been inserted. She will have this flush tomorrow. Overall doing well no new issues. [facility] Medical History (Updated 03/29/24 @ 19:02 by Zak Phillips MD) Hypertension High cholesterol Diabetes Gallbladder & bile duct stone with obstruction Social History Household Members: None Alcohol intake: never Patient Tobacco Use Status: Never used Tobacco Physical Exam Vital Signs: Last Vital Signs Pulse 50 05/14/24 09:19 BP 146/54 H 05/14/24 09:19 Pulse Ox 98 05/14/24 09:19 Oxygen Delivery Method Room Air 05/14/24 09:19 BMI result Body Mass Index 37.3 Office Meds epoetin anselmo-epbx 20,000 unit/mL injection solution Performing Provider: Guero Zuniga MD Performing Location: [facility] [place] [facility] Administered by: Guero Zuniga MD on 05/14/24 09:41 Dose Route Admin Location Dispensed Lot Number Expiration Date [employer] Oil Well Perforator Operator 20,000 unit subcut left arm 1 mL [id number] 06/24/25 6924-7745-84 [employer] Results Reviewed Nephrology Results: Hgb 9.1 g/dl (12.0-16.0) L 04/02/24 WBC 10.0 X10*3/uL (4.8-10.8) 04/02/24 Plt Count 203 X10*3/uL (160-400) 04/02/24 Sodium 142 mmol/L (135-145) 04/02/24 Potassium 6.3 mmol/L (3.3-5.1) H* 04/02/24 Chloride 113 mmol/L (96-108) H 04/02/24 Carbon Dioxide 21 mmol/L (22-29) L 04/02/24 BUN 70 mg/dL (9-16) H 04/02/24 Creatinine 7.25 mg/dL (0.5-1.4) H* 04/02/24 Calcium 8.7 mg/dL (8.4-10.2) 04/02/24 Phosphorus 4.3 mg/dL (2.7-4.5) 04/02/24 PTH Intact 616.3 pg/mL (8.7-77.1) H 04/02/24 Assessment & Plan Assessment & Plan (1) CKD (chronic kidney disease): Code(s): N18.9 - Chronic kidney disease, unspecified Category: Medical (2) Anemia due to chronic kidney disease: Code(s): N18.9 - Chronic kidney disease, unspecified; D63.1 - Anemia in chronic kidney disease Category: Medical Plan Elderly woman with advanced renal failure due to diabetic nephropathy by biopsy. CKD 5 No s/s of uremia or fluid overload Maintain blood pressure less than 130/80 Agree with holding Metoprolol for now and watch 2nd hyperparathyroidism intact PTH was elevated. On Vit D3 recheck intact PTH and calcium and will consider adding Rocaltrol Anemia erythropoietin replacement therapy at this time. Received 08502 U sq right arm Iron/TIBC are acceptable Due to edema, Keep LASIX at 20 mg QD Stay on low salt diet CCPD training in progress Orders: Orders AMB Epoetin Injection Practice Supplied Today N40.1 - Benign prostatic hyperplasia with lower urinary tract symptoms Medications: New epoetin anselmo-epbx 20,000 units subcut ONCE 1 mL 0RF anemia N40.1 - Benign prostatic hyperplasia with lower urinary tract symptoms Coding Level of Care Code Est Pt Level 4 (97755) Diagnoses CKD (chronic kidney disease) N18.9 Anemia due to chronic kidney disease N18.9; D63.1
== END 2024-05-14 09:49 | disposition home or self-care (01) ==
PROVIDERS: PCP Internal Medicine; Visit Provider Internal Medicine Hypertension Specialist
DX: N18.5 Chronic kidney disease, stage 5 (principal); D63.1 Anemia in chronic kidney disease; N40.1 Benign prostatic hyperplasia with lower urinary tract symptoms
CPT/HCPCS: 99214

== ENCOUNTER → 2024-05-14 09:20 | Outpatient (BNVA) | payer MEDICARE, MEDICAID, SELFPAY | PROVIDERS: PCP Internal Medicine; Visit Provider Internal Medicine Hypertension Specialist | DX: I12.9 Hypertensive chronic kidney disease with stage 1 through stage 4 chronic kidney disease, or unspecified chronic kidney disease (principal); N18.5 Chronic kidney disease, stage 5; D63.1 Anemia in chronic kidney disease; Z79.899 Other long term (current) drug therapy | CPT/HCPCS: 96372; 99212; Q5106 ==

== ENCOUNTER 2024-06-11 11:53 | Outpatient (AMB) | payer MEDICARE, MEDICAID, SELFPAY ==
--- NOTE | 2024-06-11 11:55 | HO.NEPHOV ---
Vital Signs 06/11/24 11:56 Height 5 ft 5 in Weight 231 lb BMI 38.4 BP 138/62 Blood Pressure Location Lt brachial Position Sitting Pulse 82 Pulse Source Pulse Oximeter Pulse Oximetry (%) 95 Oxygen Delivery Method Room Air Intake Visit Reasons: Retacrit/ LVM Quality Cloth Tester Required: Yes Quality Cloth Tester Services: Quality Cloth Tester Offered & Declined (Daughter will translate) Accompanied by: Daughter Allergies Crustaceans Allergy (Mild, Uncoded 10/31/23 08:02) SWELLING/HIVES Medication List - Last Reconciled 06/11/24 by Guero Zuniga MD calcitriol 0.25 mcg PO 3XW cholecalciferol (vitamin D3) 50 mcg PO DAILY furosemide 20 mg PO DAILY glimepiride 1 mg PO DAILY nifedipine ER 60 mg PO DAILY omeprazole 20 mg PO DAILY simvastatin 40 mg PO DAILY sodium zirconium cyclosilicate (Lokelma) 10 grams PO Q OTHER DAY HPI Comments Details: Elderly woman with history of longstanding hypertension with advanced CKD. 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 She was accompanied by her caregiver. Today she has no new complaints. No shortness of breath no nausea vomiting No edema. No urine symptoms. For the last week she has been taking Aleve. Recent serum creatinine is bumped up to 3.3 from a baseline of 2.8. 09/26/23 Recently had nausea, vomiting, diarrhea for 5 days. Cr is up to 5;Today she is feeling better 10/17/23 Accompanied by grand daughter Mey is feeling ok c/o leg swelling No dyspnea Appetite is ok She has gained 1 lb 12/20/23 Feels OK . Lost 7 lbs in 2 months Edema has improved No dyspnea Appetite is OK 03/22/24: Doing well. Came with son 04/19/2024. PD catheter has been inserted. She will have this flush tomorrow. Overall doing well no new issues. [facility] Medical History (Updated 03/29/24 @ 19:02 by Zak Phillips MD) Hypertension High cholesterol Diabetes Gallbladder & bile duct stone with obstruction Social History Household Members: None Alcohol intake: never Patient Tobacco Use Status: Never used Tobacco Physical Exam Vital Signs: Last Vital Signs Pulse 82 11/18/24 11:56 BP 138/62 06/11/24 11:56 Pulse Ox 95 06/11/24 11:56 Oxygen Delivery Method Room Air 06/11/24 11:56 BMI result Body Mass Index 38.4 Const General: comfortable; No acute distress Orientation/consciousness: patient oriented x3 Eyes General: appearance normal, both eyes and all related structures Visual Schwarz: normal visual schwarz by confrontation Neck Neck: Yes supple and Yes no JVD Resp Effort & Inspection: normal respiratory effort and respiratory effort not decreased Auscultation: rhonchi Cardio Palpation: no palpable S3 and no palpable S4 Heart sounds: no rubs GI Inspection: Yes normal to inspection Palpation (GI): Soft to palpation Percussion: Yes normal to percussion Auscultation: normal bowel sounds General: Yes no CVA tenderness Back/Spine/Pelvis Back: no CVA tenderness Skin General skin exam: no petechiae and no purpura Neuro General: patient oriented x3 and no focal motor deficits Extrem General: No clubbing and No edema Results Reviewed Nephrology Results: Hgb 9.1 g/dl (12.0-16.0) L 04/02/24 WBC 10.0 X10*3/uL (4.8-10.8) 04/02/24 Plt Count 203 X10*3/uL (160-400) 04/02/24 Sodium 142 mmol/L (135-145) 04/02/24 Potassium 6.3 mmol/L (3.3-5.1) H* 04/02/24 Chloride 113 mmol/L (96-108) H 04/02/24 Carbon Dioxide 21 mmol/L (22-29) L 04/02/24 BUN 70 mg/dL (9-16) H 04/02/24 Creatinine 7.25 mg/dL (0.5-1.4) H* 04/02/24 Calcium 8.7 mg/dL (8.4-10.2) 04/02/24 Phosphorus 4.3 mg/dL (2.7-4.5) 04/02/24 PTH Intact 616.3 pg/mL (8.7-77.1) H 04/02/24 Assessment & Plan Assessment & Plan (1) CKD (chronic kidney disease): Code(s): N18.9 - Chronic kidney disease, unspecified Category: Medical (2) Anemia due to chronic kidney disease: Code(s): N18.9 - Chronic kidney disease, unspecified; D63.1 - Anemia in chronic kidney disease Category: Medical Plan Elderly woman with advanced renal failure due to diabetic nephropathy by biopsy. CKD 5 No s/s of uremia or fluid overload Maintain blood pressure less than 130/80 Agree with holding Metoprolol for now and watch 2nd hyperparathyroidism intact PTH was elevated. On Vit D3 recheck intact PTH and calcium and will consider adding Rocaltrol Anemia erythropoietin replacement therapy at this time. Received 35811 U sq right arm Due to edema, Keep LASIX at 20 mg QD Stay on low salt diet CAPD training in progress _ See dialysis EMR for note Medications: Refilled nifedipine ER 60 mg PO DAILY 90 tabs 1RF Discontinued sodium zirconium cyclosilicate Discontinued Reason: Doctor's Order 10 grams PO Q OTHER DAY 30 ea 3RF Coding Level of Care Code Global (99813) Diagnoses CKD (chronic kidney disease) N18.9 Anemia due to chronic kidney disease N18.9; D63.1
[2024-06-11 11:56] VITALS: BP 138/62; PULSE 82; O2SAT 95; BMI 38.4
== END 2024-06-11 12:09 | disposition home or self-care (01) ==
PROVIDERS: PCP Internal Medicine; Visit Provider Internal Medicine Hypertension Specialist
DX: N18.5 Chronic kidney disease, stage 5 (principal); D63.1 Anemia in chronic kidney disease
CPT/HCPCS: 99024

== ENCOUNTER → 2024-06-11 11:53 | Outpatient (BNVA) | payer MEDICARE, MEDICAID, SELFPAY | PROVIDERS: PCP Internal Medicine; Visit Provider Internal Medicine Hypertension Specialist | DX: N18.9 Chronic kidney disease, unspecified (principal); D63.1 Anemia in chronic kidney disease | CPT/HCPCS: 99212 ==

== ENCOUNTER → 2024-07-25 | Outpatient (BNV) | payer MEDICARE, MEDICAID, SELFPAY | PROVIDERS: PCP Internal Medicine; Visit Provider Internal Medicine Hypertension Specialist | DX: N18.6 End stage renal disease (principal) | CPT/HCPCS: 90962 ==

== ENCOUNTER → 2024-08-06 13:13 | Outpatient (BNVA) | payer MEDICARE, MEDICAID, SELFPAY | PROVIDERS: PCP Internal Medicine; Visit Provider Internal Medicine Hypertension Specialist ==

== ENCOUNTER → 2024-08-25 | Outpatient (BNV) | payer MEDICARE, MEDICAID, SELFPAY | PROVIDERS: PCP Internal Medicine; Visit Provider Internal Medicine Hypertension Specialist | DX: N18.6 End stage renal disease (principal) | CPT/HCPCS: 90962 ==

== ENCOUNTER 2024-09-17 10:38 | Outpatient (AMB) | payer MEDICARE, MEDICAID, SELFPAY ==
[2024-09-17 10:36] VITALS: BP 150/70; PULSE 95; O2SAT 98; BMI 38.8
--- NOTE | 2024-09-17 10:36 | HO.NEPHOV_ITS ---
Vital Signs 09/17/24 10:36 Height 5 ft 5 in Weight 233 lb BMI 38.8 BP 150/70 H Blood Pressure Location Rt brachial Position Sitting Pulse 95 Pulse Source Pulse Oximeter Pulse Oximetry (%) 98 Oxygen Delivery Method Room Air Intake Visit Reasons: Anemia due to CKD/ Conf Parachute Rigger Required: No Accompanied by: Daughter Allergies Crustaceans Allergy (Mild, Uncoded 10/31/23 08:02) SWELLING/HIVES Medication List - Last Reconciled 09/17/24 by Guero Zuniga MD calcitriol 0.25 mcg PO 3XW cholecalciferol (vitamin D3) 50 mcg PO DAILY furosemide 20 mg PO DAILY glimepiride 1 mg PO DAILY nifedipine ER 60 mg PO DAILY omeprazole 20 mg PO DAILY simvastatin 40 mg PO DAILY PFSH Medical History (Updated 03/29/24 @ 19:02 by Zak Phillips MD) Hypertension High cholesterol Diabetes Gallbladder & bile duct stone with obstruction Social History Household Members: None Alcohol intake: never Patient Tobacco Use Status: Never used Tobacco Physical Exam Vital Signs: Last Vital Signs Pulse 95 09/17/24 10:36 BP 150/70 H 09/17/24 10:36 Pulse Ox 98 09/17/24 10:36 Oxygen Delivery Method Room Air 09/17/24 10:36 BMI result Body Mass Index 38.8 Results Reviewed Nephrology Results: Hgb 9.1 g/dl (12.0-16.0) L 04/02/24 WBC 10.0 X10*3/uL (4.8-10.8) 04/02/24 Plt Count 203 X10*3/uL (160-400) 04/02/24 Sodium 142 mmol/L (135-145) 04/02/24 Potassium 6.3 mmol/L (3.3-5.1) H* 04/02/24 Chloride 113 mmol/L (96-108) H 04/02/24 Carbon Dioxide 21 mmol/L (22-29) L 04/02/24 BUN 70 mg/dL (9-16) H 04/02/24 Creatinine 7.25 mg/dL (0.5-1.4) H* 04/02/24 Calcium 8.7 mg/dL (8.4-10.2) 04/02/24 Phosphorus 4.3 mg/dL (2.7-4.5) 04/02/24 PTH Intact 616.3 pg/mL (8.7-77.1) H 04/02/24 Assessment & Plan Assessment & Plan (1) ESRD (end stage renal disease): Code(s): N18.6 - End stage renal disease Category: Medical Plan: see dialysis emr Medications: Refilled nifedipine ER 60 mg PO DAILY 90 tabs 1RF Coding Level of Care Code Global (79748) Diagnoses ESRD (end stage renal disease) N18.6
--- OUTSIDE RECORDS SUMMARY | 2024-09-17 12:02 | XMS_ITS | Encounter Summary ---
Author Organization [employer] Address [address] [place] [address] Care Team Providers Care Matchbook Assembler Name Role Phone Eva Conrad MD Primary Care Provider + Donald Gallegos PharmD Unavailable [phone] Reason for Visit * Reason Onset Date Comments telephone call 08/23/2024 Encounter Details Date Type Department Care Team ([facility] st Contact Info) Description 08/23/2024 Telephone [facility] [address] [place], [place] [phone] Eva Conrad MD [address] [place], [place] [phone] telephone call Social History Tobacco Use Types Packs/Day Years Used Date Smoking Tobacco: Never Passive Smoke Exposure: Never Smokeless Tobacco: Never Alcohol Use Standard Drinks/Week Comments Never 0 (1 standard drink = 0.6 oz pur e alcohol) Depression Answer Date Recorded Patient Health Questionnaire-9 Score 0 10/27/2023 Patient Health Questionnaire-9 Score 0 10/27/2023 Last PHQ-9: Questionnaire Data Not on file 0 10/27/2023 Housing Stability Answer Date Recorded What is your housing situation today? I have ella fernandez 10/19/[address] you li ve. Do you have problems with any of the following? None of the above 10/19/2023 Food Insecurity Answer Date Recorded Within the past 12 months, y ou worried that your food would run out before you got money to buy more: Never True 10/19/2023 Within the past 12 months,th e food you bought just didn't last and you didn't have enough money to get more: Never True Transportation Answer Date Recorded In the past 12 months, has l ack of transportation kept you from medical appts, meetings, work or from getting things needed for daily living? No 10/19/2023 Utilities Answer Date Recorded In the past 12 months, has t he electric, gas, oil or water company threatened to shut off services in your home? No 10/19/2023 Depression Answer Date Recorded Patient Health Questionnaire-2 Score 0 10/27/2023 Comments No Sex and Gender Information Value Date Recorded Sex Assigned at Female 05/24/2022 10:15 AM EDT Legal Sex Female 10:15 AM EDT Gender Identity Female 05/24/2022 10:15 AM EDT Sexual Orientation Straight 05/24/2022 10 :15 AM EDT documented as of this encounter Miscellaneous Notes * Telephone Encounter - Kerry Gonsales RN - 08/23/2024 8:50 AM EST TC placed to [facility] pharmacy to inquire if patient has any refills available. RN was informed patient does have a refill and cream will be ready for p/u this PM. TC placed to patient [phone] to inform patient cream will be ready for p/u this PM. Patient verbalized understanding. Patient to f/u PRN. * Telephone Encounter - Esther Gallegos - 08/23/2024 8:31 AM EST Pt daughter called stating her mother needs a refill on Valisone 0.1% cream. documented in this encounter Plan of Treatment Upcoming Encounters Date Type Department Care Team (Late st Contact Info) Description 10/19/2024 9:45 AM EDT Office Visit [facility] [address] [place] [phone] Eva Conrad MD [address] [place], [place] [phone] documented as of this encounter Goals Goal Patient Goal Type Associated Problems Recent Progress Patient-Stated? Author Blood Pressure < 140/90 Blood Pressure 172/77(2023 3:14 PM EDT) No Donald Gallegos, PharmTheresa Note: CKD Stage IV documented as of this encounter Visit Diagnoses Not on filedocumented in this encounter Additional Health Concerns Assessment Noted Time PHQ-9 Depression Total Score: 0 10/27/19 24 10:30 AM EDT documented as of this encounter Care Teams Matchbook Assembler Relationship Specialty Start Date End Date Eva Conrad MD [address] [place] [address] PCP - General Family Medicine 03/10/17 Donald Gallegos, PharmD [address] [place] [address] Pharmacist Internal Medicine 10/01/22 documented as of this encounter
--- OUTSIDE RECORDS SUMMARY | 2024-09-17 12:02 | XMS_ITS | Clinical Summary ---
Author Organization [employer] Address [address] [facility] [address] [place] [address] Care Team Providers Care Parts Counter Salesperson Name Role Phone Eva Conrad MD Primary Care Provider + Donald Gallegos PharmD Unavailable [phone] Allergies Active Allergy Reactions Criticality Noted Date Comments Crab Extract 01/13/2023 Shellfish-Derived Products 1 Medications NIFEdipine XL (Procardia XL) 60 MG 24 hr tablet Take 1 tablet by mouth daily 2 Active furosemide (Lasix) 20 MG tablet take 1 tablet by oral route three times a week (Tuesday, Tuesday, and Tuesday in the morning) Active sodium zirconium cyclosilicate (Lokelma) 5 g packet take 1 packet by oral route three time a week on tuesday, tuesday, and tuesday. mix in 45 mL water and drink immediately rinse glass with water and drink for full dose Active cholecalciferol 50 MCG (1999 UT) capsule TAKE 1 TABLET BY MOUTH IN THE AM 90 capsule 3 4 Active Omeprazole 20 MG tablet delayed-release Take 20 mg by mouth if needed each day (abd pain). 30 tablet 11 4 Active betamethasone valerate (Valisone) 0.1 % cream Apply topically if needed in the morning and at bedtime (dryness). 45 g 2 4 Active simvastatin (Zocor) 40 MG tablet TAKE 1 TABLET(40 MG) BY MOUTH AT BEDTIME 90 tablet 1 4 Active glimepiride (Amaryl) 1 MG tablet TAKE 1 TABLET BY MOUTH EVERY DAY 90 tablet 3 4 Active Blood Glucose Monitoring Suppl (FreeStyle Lite) w/Device kit 1 each Once per day. 1 kit 4 025 Active TRUEplus Lancets 33G misc Use to test blood sugar daily 100 each 3 4 Active glucose blood (FREESTYLE LITE) test strip TEST BLOOD SUGAR ONCE DAILY 100 each 11 4 Active Active Problems Problem Noted Date Diagnosed Date ESRD (end stage renal disease) on dialysis 05/21 Overview (05/21/2024): Seen by Dr Zuniga at [facility] Assessment & Plan (05/21/2024 5:22 PM EDT): Started PD 1w ago, doing well and tolerates it well but finds it very conflicting with life style as she needs to be constantly connected to PD fluid (TID?). I advised her to call Nephrology and discuss PD schedule, change to at bedtime if possible. She reportedly had Influenza IZ at dialysis ctr, she'll bring IZ records Advised to get updated covid vax. Requires assistance with activities of daily lety ing (ADL) 05/21/2024 Assessment & Plan (05/21/2024 5:26 PM EDT): Mainly due to worsening health status due to ESRD. Also, the presence of peritoneal dialysis catheter, makes it difficult and risky for her to bend over and lift weights. I advised her and daughter to fu with home care program, they will call [facility]. Venous stasis dermatitis 02/21/2024 Assessment & Plan (02/21/2024 5:17 PM EDT): On left leg. Advised to use compression stockings to knee level daily (15-20mm Hg) Use betamethasone cream bid FU with me in 3m or earlier prn. Consider change Nifedipine if leg edema persists. 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 Fgstk check daily, rx glucometer sent to pharmacy. She's currently on Procrit injections by renal Fu in 3-4m Labs are up to date Assessment & Plan (02/21/2024 6:42 PM EDT): DM seems to be controlled , will continue Amaryl Check A1c prior to next RV Advised to fu closely with renal re CKD,she's aware of potential need for HD. She's current;y on Procrit injections by renal Fu in 3m Assessment & Plan (10/27/2023 11:08 AM EDT): Controlled. A1c is at goal. Concerned regarding of hypoglycemia due to progression of CKD Continue on Amaryl 1mg and watch for hypoglycemia Counseled re more frequent low calorie/carb meals. Check fgstk BID Encouraged physical activity as tolerated. FU in 3 months. Ophthalmology evaluation done at 08/18/23 Order lipids Assessment & Plan (01/13/2023 2:08 PM EDT): Controlled, A1C is at goal. Continue Amaryl 1 mg daily Counseled re more frequent low calorie/carb meals. Encouraged physical activity as tolerated. Opthalmology evaluation is up to date lipids are up to date, next one due in 6 months FU in 3 months Pt has CKD 4, FU with descriptive catalog librarian. NO evidence of uremic symptoms. Assessment & Plan (09/23/2022 12:18 PM EST): A1C has been at goal. Continue glimipiride 1mg per day and FU with me in 3 months with labs. Counseled re more frequent low calorie/carb meals. Check fgst daily Encouraged physical activity as tolerated. Hypertensive heart disease without congestive he art failure 10/30/2020 Assessment & Plan (01/13/2023 2:07 PM EDT): R/O white coat hypertension Continue checking BP at home continue losartan 50mg daily + metoprolol xl 50 per day + nifedipine 60 per day + lasix TIW and FU with renal Counseled re low salt diet/increase moderate physical activity. Check home BP BIW and prn CP/ROBLES/YOUNG Non smoking patient. Hyperparathyroidism 01/13/2018 Assessment & Plan (10/27/2023 11:08 AM EDT): No electrolytes imbalance Vit D is being corrected and she will FU w/ renal to decide on further therapy Assessment & Plan (09/23/2022 12:17 PM EST): Continue vitamin d supplementation and fu with descriptive catalog librarian. Pt received influenza IZ today. Vitamin D deficiency 01/13/2018 Adjustment disorder with depressed mood 12/08/19 18 Obesity, morbid 10/09/2012 Assessment & Plan (05/21/2024 5:24 PM EDT): Discussed re weight reduction options including exercise, life style modifications, diet. Recommended to decrease soda and sugary beverage consumption, increase protein intake with meals (at least 1 portion of protein with each meal) to assist with satiety, increase dietary fiber Recommended at least 150 min/week of moderate intensity exercise. She will discuss w renal re change of PD schedule to allow for a more active lifestyle Hypertensive disorder 04/10/2012 Overview (08/12/2023): Last Assessment & Plan: Borderline controlled. Reminded compliance with Lasix TIW No change in other medications FU with HTN clinic and descriptive catalog librarian. Assessment & Plan (02/21/2024 6:40 PM EDT): Currently on Nifedipine and lasix, off metoprolol Counseled re low salt diet/increase moderate physical activity. Check home BP BIW and prn CP/ROBLES/YOUNG Non smoking patient. FU w me in 3m Assessment & Plan (10/27/2023 11:16 AM EDT): R/o white coat HTN Bring BP readings at next appointment Losartan has been DC due to progression of CKD. Continue procardia + metoprolol for now. I will call descriptive catalog librarian to see if she can be switched to labetalol only, mainly due to leg edema Continue Lasix 20mg daily and check BMP prior to appointment w/ renal in 2 wks. Assessment & Plan (09/23/2022 12:19 PM EST): Borderline controlled. Reminded compliance with Lasix TIW No change in other medications FU with HTN clinic and descriptive catalog librarian. Hyperlipidemia 04/10/2012 Gastroesophageal reflux disease 04/10/2012 Resolved Problems Problem Noted Date Diagnosed Date Resolved Date Stage 4 chronic kidney disease 10/30/2020 05/21/2024 Assessment & Plan (10/27/2023 11:08 AM EDT): Likely worsened due to recent Covid + dehydration + use of NSAIDS Check electrolytes, no evidence of anemia Continue Vit D Daily FU w/ renal in 2 wks Assessment & Plan (09/23/2022 12:16 PM EST): GFR is stable, no significant electrolyte imbalances she has secondary hyper PTH + anemia needs to FU closely with descriptive catalog librarian, reschedule appointment. Encounters Date Type Department Care Team Description 08/23/2024 Telephone [facility] [address] [place] [address] Eva Conrad MD telephone call 08/15/2024 Patient Outreach [facility] [address] [place] [address] Eva Conrad MD Pre-visit Planning ([facility] unable to reach, Wrong number) from Last 3 Months Immunizations Name Administration Dates Next Due Influenza High-dose Quadriva lent Preservative Free 05/04/2022 Influenza injectable quadriv alent IIV4 with preservative 09/23/2022 Influenza injectable quadriv alent preservative free 07/06/2016,07/22/2015 Influenza, High Dose Seasona l, Preservative Free 05/20/2016,02/26/2015 Influenza, IIV3, injectable 04/30/2014, 1 Influenza, Split (incl. lily fied surface antigen) 04/10/2012 Influenza, Unspecified 05/04/2022,04/30/2014,12/2010 Pneumococcal Conjugate PCV 20 05/04/2022 TD (adult), 2 Lf tetanus tox oid, preservative free, adsorbed 01/16/2009 Tdap 01/09/2014 Zoster, Recombinant 04/20/2022,01/19/2022 Social History Tobacco Use Types Packs/Day Years Used Date Smoking Tobacco: Never Passive Smoke Exposure: Never Smokeless Tobacco: Never Tobacco Cessation:Counseling Given: Not Answered Alcohol Use Standard Drinks/Week Comments Never 0 [...] Orientation Straight 05/24/2022 10 :15 AM EDT Last Filed Vital Signs Vital Sign Reading Time Taken Comments Blood Pressure 172/77 05/21/2024 3:14 PM EDT Pulse 71 05/21/2024 3:14 PM EDT Temperature 36.5 ??C (97.7 ??F) 05/21/2024 3:14 PM ED T Respiratory Rate 20 05/21/2024 3:14 PM EDT Oxygen Saturation 100% 05/21/2024 3:14 PM EDT Inhaled Oxygen Concentration - - Weight 101 kg (223 lb 6 oz) 05/21/2024 3:14 PM E DT Height 165.1 cm (5' 5 ) 05/21/2024 3:14 PM EDT Body Mass Index 37.17 05/21/2024 3:14 PM EDT Plan of Treatment Upcoming Encounters Date Type Department Care Team (Late st Contact Info) Description 10/19/2024 9:45 AM EDT Office Visit [facility] [address] [place] [address] Eva Conrad MD [address] [place] [address] Health Maintenance Due Date Last Done Comments Dental Prophylaxis 1944 Alcohol/Substance Use Screening 1956 RSV Patients and Patients Aged 60 years or older (1 - 1-dose 75+ series) 12/22/2019 Lipid Panel 12/15/2022 12/15/2021, 04/18/2020 Dental Oral Exam 02/11/2023 08/13/2022 Eye Exam 07/06/2023 07/06/2022 Dental X-Ray: Bitewings 08/14/2023 08/13/2022 DTaP/Tdap/Td Vaccines (2 - Td or Tdap) 01/10/2024 01/09/2014, 01/16/2009 Diabetes: Foot Exam 01/14/2024 01/13/2023, 01/13/2023, 01/13/2023, Additional history exists COVID-19 Vaccine ( season) 2024 12/15/2021, 10/07/2020, 09/09/2020 SDOH Screening 10/18/2024 10/19/2023 Depression Screening 10/26/2024 10/27/2023, 10/27/19 Diabetes: Hemoglobin A1C 11/19/2024 024, 10/27/2023, 01/13/2023, Additional history exists Tobacco Screening 05/21/2025 05/21/2024 Dental X-Ray: Full Mouth 05/11/2026 05/10/2023, 07/26 Zoster Vaccines Completed 04/20/2022, 01/19/2022 Pneumococcal Vaccine: 50+ Years Completed 05/04/2022 Hepatitis C Screening Completed 04/02/2024, 021 Influenza Vaccine Completed 05/08/2024, , 05/04/2022, Additional history exists HIB Vaccines Aged Out No longer eligi ble based on patient's age to complete this topic HPV Vaccines Aged Out No longer eligi ble based on patient's age to complete this topic Hepatitis A Vaccines Aged Out No long er eligible based on patient's age to complete this topic Hepatitis B Vaccines Aged Out No long er eligible based on patient's age to complete this topic IPV Vaccines Aged Out No longer eligi ble based on patient's age to complete this topic Meningococcal Vaccine Aged Out No urban jessenia eligible based on patient's age to complete this topic RSV under 20 months Aged Out No longe r eligible based on patient's age to complete this topic Rotavirus Vaccines Aged Out No longer eligible based on patient's age to complete this topic Goals Goal Patient Goal Type Associated Problems Recent Progress Patient-Stated? Author Blood Pressure < 140/90 Blood Pressure 172/77(2023 3:14 PM EDT) Donald Myers, PharmD Note: CKD Stage IV Procedures Procedure Name Priority Date/Time Associated Diagnosis Comments POCT GLYCATED HEMOGLOBIN, TOTAL Routine 05/21/2024 3:29 PM EDT Diabetic nephropathy associated with type 2 diabetes mellitus (CMS/HCC) HEPATITIS PANEL, GENERAL Routine 04/02/2024 10:10 AM EDT PANORAMIC RADIOGRAPHIC IMAGE Routine 05/10/2023 8:00 AM EDT Edentulism INTRAORAL - COMPLETE SERIES OF RADIOGRAPHIC IMAGES Routine 08/13/2022 8:45 AM EST COMPREHENSIVE ORAL EVALUATION - NEW OR ESTABLISHED PATIENT Routine 08/13/2022 8:45 AM EST HM DIABETES EYE EXAM Routine 07/06/2022 LIPID PANEL, STANDARD Routine 12/15/2021 8:21 AM EDT from Last 3 Months or Most Recently Relevant to Health Maintenance Results * POCT HGB A1C (05/21/2024 3:29 PM EDT) Hemoglobin A1C 5.9 4.0 - 6.0 % QC Media Lot # [id number] Lot# Expiration Date [id number] Blood 05/21/2024 3:29 PM EDT Eva Conrad MD POINT OF CARE TEST ENTER /EDIT ORDERABLES Final Result * Hepatitis Panel, General (04/02/2024 10:10 AM EDT) Hepatitis A IgM Nonreactive Nonreactive [facility] Comment:IgM antibodies to ROBLES V not detected; does not exclude earlyacute or recovered HAV infection. ~Hepatitis B Surface Antibody GRAYZONE Nonreactive [facility] Comment:GRAYZONE: 8.00 mIU/m L TO 11.99 mIU/mLTHE IMMUNE STATUS OF THE INDIVIDUAL SHOULD BE FURTHERASSESSED BY CONSIDERING OTHER FACTORS, SUCH CLINICALSTATUS, FOLLOW-UP TESTING, ASSOCIATED RISK FACTORS, AND THEUSE OF ADDITIONAL DIAGNOSTIC INFORMATION. Hepatitis B Core Antibody Reactive Nonreactive [facility] Comment:Presumptive evidence of anti-HBc. Hepatitis C Antibody Nonreactive Nonreactive [facility] Comment:Antibodies to HCV no t detected; does not exclude early acuteHCV infection. Hepatitis B Surface Ag Negative Negative [facility] 04/02/2024 10:1 0 AM EDT 04/02/2024 10:14 AM EDT us Generic External Data Provider LAB BLOOD ORDERAB LES Final Result [facility] [address] [place] [phone] * Hm Diabetes Eye Exam (07/06/2022) Eye Exam Normal Normal Historical Provider HEALTH MAINTENANCE Edited Result - Final * (ABNORMAL) LIPID PANEL, STANDARD (12/15/2021 8:21 AM EDT) Chol/HDLC Ratio 3.5 <5.0 (calc) [facility] Cholesterol, Total 166 <200 mg/dL [facility] HDL Cholesterol 47(L) > OR = 50 mg/dL [facility] LDL Cholesterol 93 mg/dL (calc) [facility] Comment: Reference range: <100 ?? Desirable range <100 mg/dL for primary prevention; ?? <70 mg/dL for patients with CHD or diabetic patients ?? with > or = 2 CHD risk factors. ?? LDL-C is now calculated using the Weston ?? calculation, which is a validated novel method providing ?? better accuracy than the Friedewald equation in the ?? estimation of LDL-C. ?? Jose Angel LANDON et al. CORY. 2013;310(19): 1012-3143 ?? (http://education.[employer]/faq/FQE263) Non-HDL Cholesterol 119 <130 mg/dL (calc) [facility] Comment: For patients with diabetes plus 1 major ASCVD risk ?? factor, treating to a non-HDL-C goal of <100 mg/dL ?? (LDL-C of <70 mg/dL) is considered a therapeutic ?? option. Triglycerides 162(H) <150 mg/dL [facility] 12/15/2021 8:21 AM EDT Eva Conrad MD LAB BLOOD ORDERABLES Fin al Result [facility] [address] from Last 3 Months or Most Recently Relevant to Health Maintenance Insurance [facility] STAND ADULT [address] [place] [address] Care Teams Parts Counter Salesperson Relationship Specialty Start Date End Date Eva Conrad MD [address] [place] [address] PCP - General Family Medicine 03/10/17 Donald Gallegos, LissaD [address] [place] [address] Pharmacist Internal Medicine 10/01/22
--- OUTSIDE RECORDS SUMMARY | 2024-09-17 12:02 | XMS_ITS | Encounter Summary ---
Author Organization [facility] Address [address] [place] [address] Phone Care Team Providers Care Manager Academic Name Role Phone Eva Conrad MD Primary Care Provider [phone] Encounter Details Date Type Department Care Team (Late st Contact Info) Description 11/04/2020 Documentation Only [facility] [address] [place] [address] Vladislav Pickett MD Social History Tobacco Use Types Packs/Day Years Used Date Smoking Tobacco: Never Smokeless Tobacco: Never Alcohol Use Standard Drinks/Week Comments No 0 (1 standard drink = 0.6 oz pur e alcohol) Comments Unknown Sex and Gender Information Value Date Recorded Sex Assigned at Not on file Legal Sex Female 4:41 PM EST Gender Identity Not on file Sexual Orientation Not on file COVID-19 Exposure Response Date Recorded In the last month, have you been in contact with someone who was confirmed or suspected to have Coronavirus / COVID-19? No / Unsure 10/31/2020 9:00 AM EDT documented as of this encounter Plan of Treatment Not on file documented as of this encounter Visit Diagnoses Diagnosis Stage 3b chronic kidney disease (HCC) documented in this encounter Care Teams Manager Academic Relationship Specialty Start Date End Date Eva Conrad MD [address] [place] [phone] PCP - General Internal Medicine 10/30/20 documented as of this encounter
--- OUTSIDE RECORDS SUMMARY | 2024-09-17 12:02 | XMS_ITS | Encounter Summary ---
Author Organization [facility] Address [address] [place] [address] Phone Care Team Providers Care Farm Equipment Maintenance Supervisor Name Role Phone Eva Conrad MD Primary Care Provider [phone] Encounter Details Date Type Department Care Team (Late st Contact Info) Description 11/13/2021 Documentation Only [facility] [address] [place] [address] Guero Zuniga MD Social History Tobacco Use Types Packs/Day Years Used Date Smoking Tobacco: Never Smokeless Tobacco: Never Alcohol Use Standard Drinks/Week Comments No 0 (1 standard drink = 0.6 oz pur e alcohol) Comments Unknown Sex and Gender Information Value Date Recorded Sex Assigned at Not on file Legal Sex Female 4:41 PM EST Gender Identity Not on file Sexual Orientation Not on file documented as of this encounter Plan of Treatment Not on file documented as of this encounter Visit Diagnoses Not on filedocumented in this encounter Care Teams Farm Equipment Maintenance Supervisor Relationship Specialty Start Date End Date Eva Conrad MD [address] [place] [phone] PCP - General Internal Medicine 10/30/20 documented as of this encounter
--- OUTSIDE RECORDS SUMMARY | 2024-09-17 12:02 | XMS_ITS | Clinical Summary ---
Author Organization [facility] Address [address] [place] [address] Phone Care Team Providers Care Data Warehouse Architect Name Role Phone Eva Conrad MD Primary Care Provider [phone] Allergies Active Allergy Reactions Criticality Noted Date Comments Crab Extract 01/13/2023 Shellfish-Derived Products 1 Medications aspirin (ST SERA) 81 MG EC tabletIndications: Stage 3b chronic kidney disease (HCC) Take 1 tablet by mouth 1 (one) time each day Active cholecalciferol (VITAMIN D-3 SUPER STRENGTH) 50 MCG (1999) tabletIndications: Stage 3b chronic kidney disease (HCC) Take 1 tablet by mouth 1 (one) time each day Active simvastatin (ZOCOR) 40 MG tabletIndications: Stage 3b chronic kidney disease (HCC) Take 1 tablet by mouth at bed time 5 Active metoprolol succinate XL (TOPROL-XL) 50 MG 24 hr tabletIndications: Stage 3b chronic kidney disease (HCC) Take 1 tablet (50 mg total) by mouth 1 (one) time each day 30 tablet 1 Active glimepiride (AMARYL) 1 MG tablet Take 1 mg by mouth 1 (one) time each day 1 Active omeprazole (PriLOSEC) [address] capsule Take by mouth 1 (one) time each day 1 Active losartan (COZAAR) 50 MG tablet TAKE 1 TABLET(50 MG) BY MOUTH 1 TIME EACH DAY 30 tablet 11 3 Active NIFEdipine XL (PROCARDIA XL) 60 MG 24 hr tablet TAKE 1 TABLET(60 MG) BY MOUTH EVERY DAY. DO NOT CRUSH, CHEW, OR SPLIT 30 tablet 3 Active NIFEdipine XL (PROCARDIA XL) 60 MG 24 hr tablet TAKE 1 TABLET(60 MG) BY MOUTH EVERY DAY. DO NOT CRUSH, CHEW, OR SPLIT 30 tablet 11 3 Active Sodium Zirconium Cyclosilicate (Lokelma) 5 g pack Take 5 g by mouth 3 (three) times a week 20 each 3 3 Active furosemide (Lasix) 20 MG tablet Take 1 tablet (20 mg total) by mouth 3 times weekly: Tue Wed and Tuesday morning 30 tablet 3 3 Active Active Problems Problem Noted Date Diagnosed Date Urinary incontinence 09/23/2022 07/14/2023 Overview (07/14/2023): Last Assessment & Plan: Pt doing well with use of urinary pads for occasional leakage continue kegel's exercises not willing to follow up with urology at this time Chronic kidney disease stage 4 10/30/2020 Overview (07/14/2023): Last Assessment & Plan: GFR is stable, no significant electrolyte imbalances she has secondary hyper PTH + anemia needs to FU closely with oven worker, reschedule appointment. Hypertensive heart disease without congestive he art failure 10/30/2020 Overview (07/14/2023): Last Assessment & Plan: R/O white coat hypertension Continue checking BP at home continue losartan 50mg daily + metoprolol xl 50 per day + nifedipine 60 per day + lasix TIW and FU with renal Counseled re low salt diet/increase moderate physical activity. Check home BP BIW and prn CP/ROBLES/YOUNG Non smoking patient. Renal disorder due to type 2 diabetes mellitus 0 10/30/2020 Overview (07/14/2023): Last Assessment & Plan: Controlled, A1C is at goal. Continue Amaryl 1 mg daily Counseled re more frequent low calorie/carb meals. Encouraged physical activity as tolerated. Opthalmology evaluation is up to date lipids are up to date, next one due in 6 months FU in 3 months Pt has CKD 4, FU with oven worker. NO evidence of uremic symptoms. Chronic kidney disease stage 4 10/30/2020 Vitamin D deficiency 01/13/2018 Hyperparathyroidism 01/13/2018 04/18/2023 Overview (04/18/2023): Last Assessment & Plan: Continue vitamin d supplementation and fu with oven worker. Pt received influenza IZ today. Adjustment disorder with depressed mood 12/08/19 18 04/18/2023 Obesity 10/09/2012 07/14/2023 Hypertensive disorder 04/10/2012 04/18/2023 Overview (04/18/2023): Last Assessment & Plan: Borderline controlled. Reminded compliance with Lasix TIW No change in other medications FU with HTN clinic and oven worker. Hyperlipidemia 04/10/2012 04/18/2023 Gastroesophageal reflux disease 04/10/2012 04/18/2023 Immunizations Name Administration Dates Next Due Influenza Split 04/10/2012 Influenza Split High Dose Pr eservative Free IM 05/20/2016,02/26/2015 Influenza, Quadrivalent, Preservative Free 07/06,07/22/2015 Influenza, Quadrivalent, With Preservative 09/23 Influenza, Unspecified 05/04/2022,04/30/2014,12/2010 Pneumococcal Conjugate Pcv 20 05/04/2022 Shingrix 04/20/2022,01/19/2022 Td 01/16/2009 Tdap 01/09/2014 Family History Medical History Relation Comments Hypertension Mother Kidney disease Sibling ESRD on HD Relation Status Comments Father Mother Sibling Social History Tobacco Use Types Packs/Day Years Used Date Smoking Tobacco: Never Smokeless Tobacco: Never Tobacco Cessation:Counseling Given: Not Answered Alcohol Use Standard Drinks/Week Comments No 0 (1 standard drink = 0.6 oz pur e alcohol) Comments Unknown Sex and Gender Information Value Date Recorded Sex Assigned at Not on file Legal Sex Female 4:41 PM EST Gender Identity Not on file Sexual Orientation Not on file Last Filed Vital Signs Vital Sign Reading Time Taken Comments Blood Pressure 164/80 04/18/2023 4:25 PM EDT Pulse 62 04/18/2023 4:25 PM EDT Temperature - - Respiratory Rate - - Oxygen Saturation 97% 04/18/2023 4:25 PM EDT Inhaled Oxygen Concentration - - Weight 106 kg (233 lb) 04/18/2023 4:25 PM EDT Height 165.1 cm (5' 5 ) 01/06/2023 4:10 PM EDT Body Mass Index 38.77 01/06/2023 4:10 PM EDT Plan of Treatment Health Maintenance Due Date Last Done Comments Diabetes: Ophthalmology Exam 08/25/2020 Diabetes: Pedal Pulse Checked 08/25/2020 Diabetes: Sensory Foot Exam 08/25/2020 Diabetes: Visual Foot Exam 08/25/2020 Diabetes: Hemoglobin A1C 06/06/2021 03/06/2021 Influenza Vaccine (#1) 2024 3, 05/04/2022, 07/06/2016, Additional history exists Pneumococcal Vaccine: 65+ Years Completed 05/04/2022 Hepatitis B Vaccine Aged Out No longe r eligible based on patient's age to complete this topic Procedures Procedure Name Priority Date/Time Associated Diagnosis Comments HEMOGLOBIN A1C Routine 03/06/2021 10:23 AM EDT from Last 3 Months or Most Recently Relevant to Health Maintenance Results * Hemoglobin A1c (03/06/2021 10:23 AM EDT) [facility] Hemoglobin A1C 6.8 % [facility] Comment: ?Hemoglobin A1C Reference Range ? Adults: ??4.8 - 6.0 % ? Non diabetic: ??< 6.0 % ? Goal: ??< 7.0 % Additional Action Suggested: ??> 8.0 % Note: ??Hemoglobin A1c results are invalid for patients ? with abnormal amounts of HbF. ??Blood transfusions ? may impact the HbA1c concentration in the patient ? sample. Estimated Average Glucose 148 mg/dL [facility] Comment: eAG = Estimated average glucose which is %A1C expressed as average glucose, using the formula of the [id number] Average Glucose study (ADAG), Diabetes Care, Vol.31,#8, Feb. 2007 03/06/2021 10:2 3 AM EDT 03/06/2021 10:23 AM EDT Guero Zuniga MD LAB BLOOD ORDERABLES Final Res ult [place] from Last 3 Months or Most Recently Relevant to Health Maintenance Insurance [place]ICAID [place] UHC MEDICARE [place]IC[place] Care Teams Data Warehouse Architect Relationship Specialty Start Date End Date Eva Conrad MD [address] [place] [id number] PCP - General Internal Medicine 10/30/20
--- OUTSIDE RECORDS SUMMARY | 2024-09-17 12:02 | XMS_ITS | Encounter Summary ---
Author Organization [facility] Address [address] [facility] [address] [place] [address] Phone Care Team Providers Care Montessori Toddler Teacher Name Role Phone Eva Conrad MD Primary Care Provider + [phone] Reason for Visit * Reason Comments Med Refill Encounter Details Date Type Department Care Team (Late st Contact Info) Description 06/07/2021 Refill [facility] [address] [place] [phone] Guero Zuniga MD Social History Tobacco Use [...] on filedocumented in this encounter Care Teams Montessori Toddler Teacher Relationship Specialty Start Date End Date Eva Conrad MD [address] [place] [address] [phone] PCP - General Internal Medicine 10/30/20 documented as of this encounter
--- OUTSIDE RECORDS SUMMARY | 2024-09-17 12:02 | XMS_ITS | Encounter Summary ---
Author Organization [facility] Address [address] [facility] 7[address] [place] [address] Care Team Providers Care Bond Analyst Name Role Phone Eva Conrad MD Primary Care Provider + Donald Gallegos PharmD Unavailable [phone] Encounter Details Date Type Department Care Team ([facility] Contact Info) Description 09/24/2022 Abstract [facility] ADULT DENTAL [address] [place] [address] Saud Crawford, DMD [address] [place] [address] Social History Tobacco Use Types Packs/Day Years Used Date Smoking Tobacco: Never Smokeless Tobacco: Never Alcohol Use Standard Drinks/Week Comments Never 0 (1 standard drink = 0.6 oz pur e alcohol) Depression Answer Date Recorded Patient Health Questionnaire-2 Score 0 09/23/2022 Comments Unknown Sex and Gender Information Value Date Recorded Sex Assigned at Female 05/24/2022 10:15 AM EDT Legal Sex Female 10:15 AM EDT Gender Identity Female 05/24/2022 10:15 AM EDT Sexual Orientation Straight 05/24/2022 10 :15 AM EDT COVID-19 Exposure Response Date Recorded In the last 10 days, have yo u been in contact with someone who was confirmed or suspected to have Coronavirus/COVID-19? No / Unsure 09/23/2022 11:00 AM EST documented as of this encounter Plan of Treatment Upcoming Encounters Date Type Department Care Team ([facility] Contact Info) Description 10/19/2024 9:45 AM EDT Office Visit [facility] MEDICINE [address] [place] [address] Eva Conrad MD [address] [place] [address] documented as of this encounter Visit Diagnoses Not on filedocumented in this encounter Care Teams Bond Analyst Relationship Specialty Start Date End Date Eva Conrad MD [address] [place] [address] PCP - General Family Medicine 03/10/17 Donald Gallegos, LissaD [address] [place] [address] Pharmacist Internal Medicine 10/01/22 documented as of this encounter
== END 2024-09-17 10:46 | disposition home or self-care (01) ==
PROVIDERS: PCP Internal Medicine; Visit Provider Internal Medicine Hypertension Specialist
DX: N18.6 End stage renal disease (principal)
CPT/HCPCS: 99024

== ENCOUNTER → 2024-09-17 10:38 | Outpatient (BNVA) | payer MEDICARE, MEDICAID, SELFPAY | PROVIDERS: PCP Internal Medicine; Visit Provider Internal Medicine Hypertension Specialist | DX: N18.6 End stage renal disease (principal) | CPT/HCPCS: 99212 ==

== ENCOUNTER → 2024-09-22 | Outpatient (BNV) | payer MEDICARE, MEDICAID, SELFPAY | PROVIDERS: PCP Internal Medicine; Visit Provider Internal Medicine Hypertension Specialist | DX: N18.6 End stage renal disease (principal) | CPT/HCPCS: 90962 ==

== ENCOUNTER → 2024-10-15 10:25 | Outpatient (BNVA) | payer MEDICARE, MEDICAID, SELFPAY | PROVIDERS: PCP Internal Medicine; Visit Provider Internal Medicine Hypertension Specialist | DX: N18.6 End stage renal disease (principal) | CPT/HCPCS: 99212 ==

== ENCOUNTER 2024-10-15 10:40 | Outpatient (AMB) | payer MEDICARE, MEDICAID, SELFPAY ==
[2024-10-15 10:28] VITALS: BP 144/60; PULSE 83; O2SAT 97; BMI 38.8
--- NOTE | 2024-10-15 10:28 | HO.NEPHOV ---
Vital Signs 10/15/24 10:28 Height 5 ft 5 in Weight 233 lb BMI 38.8 BP 144/60 H Blood Pressure Location Lt brachial Position Sitting Pulse 83 Pulse Source Pulse Oximeter Pulse Oximetry (%) 97 Oxygen Delivery Method Room Air Intake Visit Reasons: Anemia due to CKD/ Conf Apparel Machinery Instructor Required: No Accompanied by: Grand Child Allergies Crustaceans Allergy (Mild, Uncoded 10/31/23 08:02) SWELLING/HIVES PFSH Medical History (Updated 10/15/24 @ 10:31 by Guero Zuniga MD) ESRD (end stage renal disease) Hypertension High cholesterol Diabetes Gallbladder & bile duct stone with obstruction Social History Household Members: None Alcohol intake: never Patient Tobacco Use Status: Never used Tobacco Physical Exam Vital Signs: Last Vital Signs Pulse 83 10/15/24 10:28 BP 144/60 H 10/15/24 10:28 Pulse Ox 97 10/15/24 10:28 Oxygen Delivery Method Room Air 10/15/24 10:28 BMI result Body Mass Index 38.8 Results Reviewed Nephrology Results: No Data to Display Assessment & Plan Assessment & Plan (1) ESRD (end stage renal disease): Code(s): N18.6 - End stage renal disease Category: Medical Plan See dialysis EMR Coding Level of Care Code Global (08472) Diagnoses ESRD (end stage renal disease) N18.6
== END 2024-10-15 10:41 | disposition home or self-care (01) ==
PROVIDERS: PCP Internal Medicine; Visit Provider Internal Medicine Hypertension Specialist
DX: N18.6 End stage renal disease (principal)
CPT/HCPCS: 99024

== ENCOUNTER → 2024-10-23 | Outpatient (BNV) | payer MEDICARE, MEDICAID, SELFPAY | PROVIDERS: PCP Internal Medicine; Visit Provider Internal Medicine Hypertension Specialist | DX: N18.6 End stage renal disease (principal) | CPT/HCPCS: 90962 ==

== ENCOUNTER 2024-11-15 16:15 | Outpatient (AMB) | payer MEDICARE, MEDICAID, SELFPAY ==
[2024-11-15 16:13] VITALS: BP 158/72; PULSE 86; O2SAT 97; BMI 38.2
--- NOTE | 2024-11-15 16:13 | HO.NEPHOV ---
Vital Signs 11/15/24 16:13 Height 5 ft 5 in Weight 229 lb 6 oz BMI 38.2 BP 158/72 H Blood Pressure Location Rt brachial Position Sitting Pulse 86 Pulse Source Pulse Oximeter Pulse Oximetry (%) 97 Oxygen Delivery Method Room Air Intake Visit Reasons: FU/ Conf Accompanied by: Grand Child Allergies Crustaceans Allergy (Mild, Uncoded 11/15/24 16:14) SWELLING/HIVES PFSH Medical History ESRD (end stage renal disease) Hypertension High cholesterol Diabetes Gallbladder & bile duct stone with obstruction Social History Household Members: None Alcohol intake: never Patient Tobacco Use Status: Never used Tobacco Physical Exam Vital Signs: Last Vital Signs Pulse 86 11/15/24 16:13 BP 158/72 H 11/15/24 16:13 Pulse Ox 97 11/15/24 16:13 Oxygen Delivery Method Room Air 11/15/24 16:13 BMI result Body Mass Index 38.2 Results Reviewed Nephrology Results: No Data to Display Assessment & Plan Assessment & Plan (1) ESRD (end stage renal disease): Code(s): N18.6 - End stage renal disease Category: Medical Plan See dialysis EMR Coding Level of Care Code Global (78968) Diagnoses ESRD (end stage renal disease) N18.6
--- OUTSIDE RECORDS SUMMARY | 2024-11-15 18:37 | XMS_ITS | Encounter Summary ---
Author Organization [facility] Address [address] [facility] [address] [place] [address] Phone Care Team Providers Care Electronics Assembler Name Role Phone Eva Conrad MD Primary Care Provider + [phone] Reason for Visit * Reason Comments Med Refill Encounter Details Date Type Department Care Team (Late st Contact Info) Description 06/07/2021 [facility]ill [facility] [address] [place] [phone] Guero Zuniga MD Social History Tobacco Use [...] on filedocumented in this encounter Care Teams Electronics Assembler Relationship Specialty Start Date End Date Eva Conrad MD [address] [place] [address] [phone] PCP - General Internal Medicine 10/30/20 documented as of this encounter
--- OUTSIDE RECORDS SUMMARY | 2024-11-15 18:37 | XMS_ITS | Encounter Summary ---
Author Organization [facility] Address [address] [place] [address] Phone Care Team Providers Care Curtain Cutter Hand Name Role Phone Eva Conrad MD Primary Care Provider [phone] Encounter Details Date Type Department Care Team (Late st Contact Info) Description 11/04/2020 Documentation Only [facility] [address] [place] [address] Vladislav Pickett MD Social History [...] (HCC) documented in this encounter Care Teams Curtain Cutter Hand Relationship Specialty Start Date End Date Eva Conrad MD [address] [place] [id number] PCP - General Internal Medicine 10/30/20 documented as of this encounter
--- OUTSIDE RECORDS SUMMARY | 2024-11-15 18:37 | XMS_ITS | Encounter Summary ---
Author Organization [employer] [facility] Address [address] [facility] 7[address] [place] [address] Care Team Providers Care Specimen Transporter Name Role Phone Eva Conrad MD Primary Care Provider + Donald Gallegos PharmD Unavailable [phone] Encounter Details Date Type Department Care Team ([facility] Contact Info) Description 09/24/2022 Abstract [facility] ADULT DENTAL [address] [place] [address] Saud Crawford, DMD [address] [place] [address] Social History Tobacco Use Types Packs/Day Years [...] Upcoming Encounters Date Type Department Care Team ([facility] Contact Info) Description 02/13/2025 10:00 AM EDT Office Visit [facility] MEDICINE [address] [place] [address] Eva Conrad MD [address] [place] [address] documented as of this encounter Visit Diagnoses Not on filedocumented in this encounter Care Teams Specimen Transporter Relationship Specialty Start Date End Date Eva Conrad MD [address] [place] [address] PCP - General Family Medicine 03/10/17 Donald Gallegos, LissaD [address] [place] [address] Pharmacist Internal Medicine 10/01/22 documented as of this encounter
--- OUTSIDE RECORDS SUMMARY | 2024-11-15 18:37 | XMS_ITS | Clinical Summary ---
Author Organization [employer] Address [address] [facility] 7[address] [place] [address] Care Team Providers Care Information Consultant Name Role Phone Osman Godoy MD Primary Care Provider + Donald Gallegos PharmD Unavailable [phone] Allergies Active Allergy Reactions Criticality Noted Date Comments Crab Extract 01/13/2023 Shellfish-Derived Products Medications NIFEdipine XL (Procardia XL) 60 MG 24 hr tablet Take 1 tablet by mouth daily 022 Active furosemide (Lasix) 20 MG tablet take [...] water and drink for full dose Active Omeprazole 20 MG tablet delayed-release Take 20 mg by mouth if needed each day (abd pain). 30 tablet 11 Active betamethasone valerate (Valisone) 0.1 % cream Apply topically if needed in the morning and at bedtime (dryness). 45 g 2 024 Active simvastatin (Zocor) 40 MG tablet TAKE 1 TABLET(40 MG) BY MOUTH AT BEDTIME 90 tablet 1 024 Active glimepiride (Amaryl) 1 MG tablet TAKE 1 TABLET BY MOUTH EVERY DAY 90 tablet 3 024 Active Blood Glucose Monitoring Suppl (FreeStyle Lite) w/Device kit 1 each Once per day. 1 kit 2024 Active TRUEplus Lancets 33G [facility] Use to test blood sugar daily 100 each 3 Active glucose blood (FREESTYLE LITE) test strip TEST BLOOD SUGAR ONCE DAILY 100 each 11 Active fluticasone (Flonase) 50 MCG/ACT nasal spray Administer 1 spray into each nostril Once per day. 16 g 2 2024 Active glucose (Glutose) 40 % gel oral gel Take 15 g by mouth if needed for low blood sugar. 225 g Active cholecalciferol (Vitamin D-3) 50 MCG (2000 UT) capsule Take 1 capsule (50 mcg) by mouth Once per day. 30 capsule 11 Active sucralfate (Carafate) 1 g tablet Take 1 tablet (1 g) by mouth before breakfast and before evening meal. 120 tablet Active diazePAM (Valium) 2 MG tablet Take 1 tablet (2 mg) by mouth if needed in the morning and at bedtime for anxiety for up to 5 days. 10 tablet Active cholecalciferol 50 MCG (2000 UT) capsule TAKE 1 TABLET BY MOUTH IN THE AM 90 capsule 3 2024 Discontinued(I neffective) ergocalciferol (Vitamin D2) 1.25 MG (48297 UT) capsule Take 1 capsule (1.25 mg) by mouth 1 (one) time per week. 12 capsule 3 2024 Discontinued(S barbara effects) sucralfate (Carafate) 1 g tablet Take 1 tablet (1 g) by mouth before breakfast and before evening meal for 7 days. 14 tablet 2024 Discontinued(R eorder (will not trigger notification to Pharmacy)) diazePAM (Valium) 2 MG tablet Take 1 tablet (2 mg) by mouth if needed in the morning and at bedtime for anxiety for up to 3 days. 6 tablet 2024 Discontinued(R eorder (will not trigger notification to Pharmacy)) Active Problems Problem Noted Date Diagnosed Date Cervical paraspinal muscle spasm 10/31/2024 Assessment & Plan (10/31/2024 5:25 PM EDT): Advised patient to apply heat on affected area and gave her information regarding stretching exercises for her neck. Use a sleep pillow/neck support pillow as needed pain DC vitamin D, it may have driven calcium levels even lower. She will recheck calcium levels next week if symptoms continue. Follow-up with blender/braze applicator. DC simvastatin until symptoms resolve completely Take Tylenol twice daily as needed pain Valium 2 mg twice daily as needed severe neck pain, maximum of 3 days. We discussed about sedated effects, potential and mental status changes and respiratory depression. Patient lives with her son who will check her during the daytime. ESRD (end stage renal disease) on dialysis 05/21 Overview (05/21/2024): Seen by Dr Zuniga at [facility] Assessment & Plan (10/19/2024 3:33 PM EDT): Doing well on PD 3x/d, she is getting trained to do with once per day overnight. Follow-up with nephrology [facility] dialysis [facility] in his [place]. She will check immunizations and get Tdap at dialysis center if not up-to-date. Declined COVID immunization today, other immunizations are up-to-date continue to follow-up with dietitian. Continue nutritional supplementation daily with boost or renal shakes Assessment & Plan (05/21/2024 5:22 PM EDT): [...] with home care program, they will call David. Venous stasis dermatitis 02/21/2024 Assessment & Plan (02/21/2024 5:17 PM EDT): On left leg. Advised to use compression stockings to knee level daily (15-20mm Hg) Use betamethasone cream bid FU with me in 3m or earlier prn. Consider change Nifedipine if leg edema persists. 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 c kidney disease, not on chronic dialysis 01/27/2024 Assessment & Plan (02/21/2024 6:42 PM [...] 2 diabetes mellitus 10/30/2020 Assessment & Plan (10/19/2024 3:36 PM EDT): Controlled. A1c is low, advised to hold Amaryl for 1 month fingersticks twice daily restart if she has persistent BS above 150, otherwise follow-up with me in 3 months Counseled regarding hypoglycemia prevention, take glucose load for headache, palpitations for diaphoresis Counseled re more frequent low calorie/carb meals. Check fgstk 1x daily Encouraged physical activity as tolerated. FU in 1months. Assessment & Plan (05/21/2024 5:34 PM EDT): [...] months Pt has CKD 4, FU with blender/braze applicator. NO evidence of uremic symptoms. Assessment & [...] smoking patient. Hyperparathyroidism 01/13/2018 Assessment & Plan (10/19/2024 3:37 PM EDT): Secondary to ESRD, no significant electrolyte disbalance related to additional medications. Continue vitamin D supplementation and follow-up with renal Assessment & Plan (10/27/2023 11:08 AM EDT): No electrolytes imbalance Vit D is being corrected and she will FU w/ renal to decide on further therapy Assessment & Plan (09/23/2022 12:17 PM EST): Continue vitamin d supplementation and fu with blender/braze applicator. Pt received influenza IZ today. Vitamin D deficiency 01/13/2018 Assessment & Plan (10/31/2024 6:37 PM EDT): Patient apparently did not tolerate vitamin D 50,000 units, restart vitamin D 2000 units/day Will call dialysis center/nephrology to let them know regarding change of POC Recheck calcium and phosphorus levels Assessment & Plan (10/19/2024 3:27 PM EDT): DC cholecalciferol and start vitamin D 50,000 units/week Adjustment disorder with depressed mood 12/08/19 18 Class 2 severe obesity due t o excess calories with serious comorbidity and body mass index (BMI) of 38.0 to 38.9 in adult 10/09/2012 Assessment & Plan (10/19/2024 3:39 PM EDT): >>ASSESSMENT AND PLAN FOR OBESITY, MORBID ([facility]) WRITTEN ON 05/21/2024 5:24 PM BY OSMAN GODOY MD Discussed re weight reduction options including exercise, [...] to allow for a more active lifestyle Assessment & Plan (10/19/2024 3:39 PM EDT): Discussed re weight reduction options including exercise, life style modifications, diet. Recommended to decrease soda and sugary beverage consumption, increase protein intake with meals (at least 1 portion of protein with each meal) to assist with satiety, increase dietary fiber Recommended at least 150 min/week of moderate intensity exercise. She follows with dietitian at renal clinic Hypertensive disorder 04/10/2012 Overview (08/12/2023): Last Assessment & Plan: Borderline controlled. Reminded compliance with Lasix TIW No change in other medications FU with HTN clinic and blender/braze applicator. Assessment & Plan (10/19/2024 3:34 PM EDT): Uncontrolled today, probably related to vertigo from PAD that started this morning. Advised to check BP at home after PD, improved with overnight dialysis. Continue Lasix and nifedipine and exercise as tolerated, she is a non-smoking patient. Follow-up with renal in 2 weeks, if BP continues elevated she can call back or they can adjust medications. Referred to eye clinic Assessment & Plan (02/21/2024 6:40 PM EDT): Currently on Nifedipine and lasix, off metoprolol Counseled re low salt diet/increase moderate physical activity. Check home BP BIW and prn CP/ROBLES/YOUNG Non smoking patient. FU w me in Assessment & Plan (10/27/2023 11:16 AM EDT): R/o white coat HTN Bring BP readings at next appointment Losartan has been DC due to progression of CKD. Continue procardia + metoprolol for now. I will call blender/braze applicator to see if she can be switched to labetalol only, mainly due to leg edema Continue Lasix 20mg daily and check BMP prior to appointment w/ renal in 2 wks. Assessment & Plan (09/23/2022 12:19 PM EST): Borderline controlled. Reminded compliance with Lasix TIW No change in other medications FU with HTN clinic and blender/braze applicator. Hyperlipidemia 04/10/2012 Gastroesophageal reflux disease 04/10/2012 Resolved Problems Problem Noted Date Diagnosed Date Resolved Date Angina pectoris, unspecified 10/19/2024 10/19/2024 Stage 4 chronic kidney disease 10/30/2020 05/21/2024 [...] + anemia needs to FU closely with blender/braze applicator, reschedule appointment. Encounters Date Type Department Care Team Description 11/06/2024 Telephone [facility] [address] [place] [phone] Osman Godoy MD Bailey recall 11/02/[address] [phone] Osman Godoy MD Med Refill 11/01/[address] [address] Haylee Leyva RN Care Coordination 10/31/2024 5:00 PM EDT Office Visit [facility] [address] [place] [phone] Osman Godoy MD Cervical paraspinal muscle spasm (Primary Dx); Vitamin D deficiency 10/26/[address] [phone] Osman Godoy MD telephone call 10/22/[address] [address] Osman Godoy MD Appointment Request 10/19/2024 9:45 AM EDT Office Visit [address] [address] Osman Godoy MD Diabetic nephropathy associated with type 2 diabetes mellitus (CMS/HCC) (Primary Dx); Primary hypertension; ESRD (end stage renal disease) on dialysis (CMS/HCC); Hyperparathyroidism (CMS/HCC); Vitamin D deficiency; Class 2 severe obesity due to excess calories with serious comorbidity and body mass index (BMI) of 38.0 to 38.9 in adult ([facility]); Dietary counseling; Exercise counseling 10/19/2024 Travel 10/18/2024 Telephone [facility] [address] [place] [phone] Osman Godoy MD Chart prep 10/10/2024 Patient Outreach [address] [phone] Osman Godoy MD Pre-visit Planning (SDOH screening negative and tobacco screening negative) 08/23/[address] [address] Osman Godoy MD telephone call from Last 3 Months Immunizations Name Administration [...] Recorded Patient Health Questionnaire-2 Score 0 10/27/2023 Internet Access Answer Date Recorded Internet Access Q1 Yes 10/10/2024 Internet Access Q2 Not on file 10/10/2024 Comments No Sex and Gender Information Value Date Recorded Sex Assigned at Female 05/24/2022 10:15 AM EDT Legal Sex Female 10:15 AM EDT Gender Identity Female 05/24/2022 10:15 AM EDT Sexual Orientation Straight 05/24/2022 10 :15 AM EDT Last Filed Vital Signs Vital Sign Reading Time Taken Comments Blood Pressure 161/84 10/31/2024 4:49 PM EDT Pulse 81 10/31/2024 4:49 PM EDT Temperature 36.4 ??C (97.6 ??F) 10/31/2024 4:49 PM ED T Respiratory Rate 20 10/31/2024 4:49 PM EDT Oxygen Saturation 100% 10/31/2024 4:49 PM EDT Inhaled Oxygen Concentration - - Weight 101 kg (222 lb 8 oz) 10/31/2024 4:49 PM E DT Height 165.1 cm (5' 5 ) 10/31/2024 4:49 PM EDT Body Mass Index 37.03 10/31/2024 4:49 PM EDT Plan of Treatment Upcoming Encounters Date Type Department Care Team (Late st Contact Info) Description 02/13/2025 10:00 AM EDT Office Visit [facility] [address] [place] [address] Osman Godoy MD [address] [place] [address] Health Maintenance Due Date Last Done Comments Dental Prophylaxis 1944 Alcohol/Substance Use Screening 1956 RSV Patients and Patients Aged 60 years or older (1 - 1-dose 75+ series) 12/22/2019 Lipid Panel 12/15/2022 12/15/2021, 04/18/2020 Dental Oral Exam 02/11/2023 08/13/2022 Eye Exam 07/06/2023 07/06/2022 Dental X-Ray: Bitewings 08/14/2023 08/13/2022 DTaP/Tdap/Td Vaccines (2 - Td or Tdap) 01/10/2024 01/09/2014, 01/16/2009 COVID-19 Vaccine ( season) 2024 12/15/2021, 10/07/2020, 09/09/2020 Hepatitis B Vaccines (2 of 2 - CpG 2-dose series) 10/22/2024 09/24/2024 Depression Screening 10/26/2024 10/27/2023, 10/27/19 Diabetes: Hemoglobin A1C 04/21/2025 025, 05/21/2024, 10/27/2023, Additional history exists SDOH Screening 10/10/2025 10/10/2024 Diabetes: Foot Exam 10/19/2025 10/19/2024, 10/19/2024, 10/19/2024, Additional history exists Tobacco Screening 10/31/2025 10/31/2024 Dental X-Ray: Full Mouth 05/11/2026 05/10/2023, 07/26 [...] Author Blood Pressure < 140/90 Blood Pressure 161/84(2024 4:49 PM EDT) No Donald Gallegos, PharmD Note: CKD Stage IV Procedures Procedure Name Priority Date/Time Associated Diagnosis Comments POCT GLYCATED HEMOGLOBIN, TOTAL Routine 10/19/2024 9:55 AM EDT Diabetic nephropathy associated with type 2 diabetes mellitus (CMS/HCC) POCT GLUCOSE Routine 10/19/2024 9:53 AM EDT Diabetic nephropathy associated with type 2 [...] Health Maintenance Results * POCT HGB A1C (10/19/2024 9:55 AM EDT) Hemoglobin A1C 5.8 4.0 - 6.0 % QC Media Lot # [id number] Lot# Expiration Date Blood 10/19/2024 9:55 AM EDT Osman Godoy MD POINT OF CARE TEST ENTER /EDIT ORDERABLES Final Result * POCT Glucose (10/19/2024 9:53 AM EDT) Glucose Blood, POC 161 60 - 200 mg/dL QC Media Lot # [id number] Lot# Expiration Date Blood Capillary blood specimen / Unknown 10/19/2024 9:53 AM EDT Osman Godoy MD POINT OF CARE TEST ENTER /EDIT ORDERABLES Final Result * Hepatitis Panel, General (04/02/2024 10:10 AM EDT) Pathologist [facility] Hepatitis A IgM Nonreactive Nonreactive [facility] Comment:IgM antibodies to ROBLES V not detected; does not exclude earlyacute or recovered HAV infection. ~Hepatitis B Surface Antibody GRAYZONE Nonreactive [facility] Comment:GRAYZONE: 8.00 mIU/m L TO 11.99 mIU/mLTHE IMMUNE STATUS OF THE INDIVIDUAL SHOULD BE FURTHERASSESSED BY CONSIDERING OTHER FACTORS, SUCH CLINICALSTATUS, FOLLOW-UP TESTING, ASSOCIATED RISK FACTORS, AND THEUSE OF ADDITIONAL DIAGNOSTIC INFORMATION. Hepatitis B Core Antibody Reactive Nonreactive [facility] Comment:Presumptive evidence of anti-HBc. Hepatitis C Antibody Nonreactive Nonreactive [facility] Comment:Antibodies to HCV no t detected; does not exclude early acuteHCV infection. Hepatitis B Surface Ag Negative Negative [facility] 04/02/2024 10:1 0 AM EDT 04/02/2024 10:14 AM EDT us Generic External Data Provider LAB BLOOD ORDERAB LES Final Result [facility] [address] [place] [phone] * Hm Diabetes Eye Exam (07/06/2022) [...] ?? LDL-C is now calculated using the Jose Angel-Lopez ?? calculation, which is a validated novel method providing ?? better accuracy than the Friedewald equation in the ?? estimation of LDL-C. ?? Jose Angel SS et al. CORY. 2013;310(19): 8254-7171 ?? (http://education.Sambazon/faq/GLN252) Non-HDL Cholesterol 119 <130 mg/dL (calc) [facility] Comment: For patients with diabetes plus 1 major ASCVD risk ?? factor, treating to a non-HDL-C goal of <100 mg/dL ?? (LDL-C of <70 mg/dL) is considered a therapeutic ?? option. Triglycerides 162(H) <150 mg/dL [facility] 12/15/2021 8:21 AM EDT us Osman Godoy MD LAB BLOOD ORDERABLES Fin al Result [facility] [address] from Last 3 Months or Most Recently Relevant to Health Maintenance Insurance [facility] MEDIC[facility] STAND ADULT Care Teams Information Consultant Relationship Specialty Start Date End Date Osman Godoy MD [address] [place], [place] [phone] PCP - General Family Medicine 03/10/17 Donald Gallegos, LissaD [address] [place], [place] [phone] Pharmacist Internal Medicine 10/01/22
--- OUTSIDE RECORDS SUMMARY | 2024-11-15 18:37 | XMS_ITS | Clinical Summary ---
Author Organization [facility] Address [address] [place] [address] Phone Care Team Providers Care Pe Electrical Engineer Name Role Phone Eva Conrad MD Primary Care Provider [phone] Allergies Active Allergy Reactions Criticality Noted Date [...] + anemia needs to FU closely with shelving supervisor, reschedule appointment. Hypertensive heart disease without congestive [...] months Pt has CKD 4, FU with shelving supervisor. NO evidence of uremic symptoms. Chronic kidney disease stage 4 10/30/2020 Vitamin D deficiency 01/13/2018 Hyperparathyroidism 01/13/2018 04/18/2023 Overview (04/18/2023): Last Assessment & Plan: Continue vitamin d supplementation and fu with shelving supervisor. Pt received influenza IZ today. Adjustment disorder with depressed mood 12/08/19 18 04/18/2023 Obesity 10/09/2012 07/14/2023 Hypertensive disorder 04/10/2012 04/18/2023 Overview (04/18/2023): Last Assessment & Plan: Borderline controlled. Reminded compliance with Lasix TIW No change in other medications FU with HTN clinic and shelving supervisor. Hyperlipidemia 04/10/2012 04/18/2023 Gastroesophageal reflux disease 04/10/2012 04/18/2023 Immunizations Immunization Administration Dates Next Due Influenza Split 04/10/2012 [...] Diabetes: Hemoglobin A1C 06/06/2021 03/06/2021 Influenza Vaccine (Season Ended) 2025 09/23/2022, 05/04/2022, 07/06/2016, Additional history exists Pneumococcal Vaccine: 50+ Years Completed 05/04/2022 Pneumococcal Vaccine: Peds (0 to 5 Years) and At-Risk Patients (6 to 49 Years) Discontinued 05/04/2022 Hepatitis B Vaccine Aged Out No longe r eligible based on patient's age to complete this topic Procedures Procedure Name Priority Date/Time Associated Diagnosis Comments HEMOGLOBIN A1C Routine 03/06/2021 10:23 AM EDT from Last 3 Months or Most Recently Relevant to Health Maintenance Results * Hemoglobin A1c (03/06/2021 10:23 AM EDT) Hemoglobin A1C 6.8 % [facility] Comment: ?Hemoglobin A1C Reference Range ? Adults: ??4.8 - 6.0 % ? Non diabetic: ??< 6.0 % ? Goal: ??< 7.0 % Additional Action Suggested: ??> 8.0 % Note: ??Hemoglobin A1c results are invalid for patients ? with abnormal amounts of HbF. ??Blood transfusions ? may impact the HbA1c concentration in the patient ? sample. Estimated Average Glucose 148 mg/dL [facility] Comment: eAG = Estimated average glucose which is %A1C expressed as average glucose, using the formula of the C3A-[id number] Average Glucose study (ADAG), Diabetes Care, Vol.31,#8, Feb. 2007 03/06/2021 10:2 3 AM EDT 03/06/2021 10:23 AM EDT Guero Zuniga MD LAB BLOOD ORDERABLES Final Res ult [facility] from Last 3 Months or Most Recently Relevant to Health Maintenance Insurance Medicaid [place] Medicare [place]HC Medicare Medicaid [place] Care Teams Pe Electrical Engineer Relationship Specialty Start Date End Date Eva Conrad MD [address] [place] [address] [phone] PCP - General Internal Medicine 10/30/20
--- OUTSIDE RECORDS SUMMARY | 2024-11-15 18:37 | XMS_ITS | Encounter Summary ---
Author Organization [facility] Address [address] [place] [address] Phone Care Team Providers Care Steam Clean Machine Operator Name Role Phone Eva Conrad MD Primary Care Provider [phone] Encounter Details Date Type Department Care Team (Late st Contact Info) Description 11/13/2021 Documentation Only [facility] [address] [place] [address] Guero Zuniga MD Social History [...] on filedocumented in this encounter Care Teams Steam Clean Machine Operator Relationship Specialty Start Date End Date Eva Conrad MD [address] [place] [address] [phone] PCP - General Internal Medicine 10/30/20 documented as of this encounter
== END 2024-11-15 16:26 | disposition home or self-care (01) ==
LOC: HO.HKA 16:15
PROVIDERS: PCP Internal Medicine; Visit Provider Internal Medicine Hypertension Specialist
DX: N18.6 End stage renal disease (principal)
CPT/HCPCS: 99024

== ENCOUNTER → 2024-11-15 16:15 | Outpatient (BNVA) | payer MEDICARE, MEDICAID, SELFPAY | PROVIDERS: PCP Internal Medicine; Visit Provider Internal Medicine Hypertension Specialist | DX: I12.9 Hypertensive chronic kidney disease with stage 1 through stage 4 chronic kidney disease, or unspecified chronic kidney disease (principal); N18.6 End stage renal disease | CPT/HCPCS: 99212 ==

== ENCOUNTER 2024-12-27 14:34 | Outpatient (AMB) | payer MEDICARE, MEDICAID, SELFPAY ==
--- NOTE | 2024-12-27 14:34 | HO.NEPHOV_ITS ---
Vital Signs 12/27/24 14:35 Height 5 ft 5 in Weight 222 lb BMI 36.9 BP 144/60 H Blood Pressure Location Rt brachial Position Sitting Pulse 82 Pulse Source Pulse Oximeter Pulse Oximetry (%) 96 Oxygen Delivery Method Room Air Intake Visit Reasons: 1 MO FU/ Conf Accident Examiner Required: No Accident Examiner Services: Accident Examiner Offered & Declined (Grandchild will interprete ) Accompanied by: Grand Child Allergies Crustaceans Allergy (Mild, Uncoded 11/15/24 16:14) SWELLING/HIVES PFSH Medical History ESRD (end stage renal disease) Hypertension High cholesterol Diabetes Gallbladder & bile duct stone with obstruction Social History Household Members: None Alcohol intake: never Patient Tobacco Use Status: Never used Tobacco Physical Exam Vital Signs: Last Vital Signs Pulse 82 12/27/24 14:35 BP 144/60 H 12/27/24 14:35 Pulse Ox 96 12/27/24 14:35 Oxygen Delivery Method Room Air 12/27/24 14:35 BMI result Body Mass Index 36.9 Results Reviewed Nephrology Results: No Data to Display Assessment & Plan Assessment & Plan (1) ESRD (end stage renal disease): Code(s): N18.6 - End stage renal disease Category: Medical Plan see dialysis emr Coding Level of Care Code Global (76904) Diagnoses ESRD (end stage renal disease) N18.6
[2024-12-27 14:35] VITALS: BP 144/60; PULSE 82; O2SAT 96; BMI 36.9
--- OUTSIDE RECORDS SUMMARY | 2024-12-27 17:12 | XMS_ITS | Encounter Summary ---
Author Organization [employer] Address [address] [facility] [address] [place] [address] Care Team Providers Care Community Affairs Director Name Role Phone Eva Conrad MD Primary Care Provider + Donald Gallegos PharmD Unavailable [phone] Reason for Visit * Reason Onset Date Comments Appointment Request 12/24/2024 Encounter Details Date Type Department Care Team (Late st Contact Info) Description 12/24/2024 Telephone [facility] [address] [place], [place] [phone] Haylee Leyva RN [address] [place], [place] [phone] Appointment Request Social History Tobacco Use Types Packs/Day Years [...] encounter Miscellaneous Notes * Telephone Encounter - Haylee Leyva RN - 12/24/2024 4:20 PM EDT TC received from daughter (on HIPAA) requesting HDF for pt., admitted to [facility] 12/20-12/24 for vomiting. Daughter agrees to appt. 01/03/25 at 10:45am with PCP [place]. Note sent to scan. documented in this encounter Plan of Treatment Upcoming Encounters Date Type Department Care Team (Late st Contact Info) Description 01/03/2025 10:45 AM EDT Office Visit [facility] [address] [place] [phone] Eva Conrad MD [address] [place] [phone] 02/13/2025 10:00 AM EDT Office Visit [facility] [address] [place] [phone] Eva Conrad MD [address] [place] [phone] documented as of this encounter Goals Goal Patient Goal Type Associated Problems Recent Progress Patient-Stated? Author Blood Pressure < 140/90 Blood Pressure 161/84(2024 4:49 PM EDT) No Donald Gallegos, Nicolette Note: CKD Stage IV documented as of this encounter Visit Diagnoses Not on filedocumented in this encounter Additional Health Concerns Assessment Noted Time PHQ-9 Depression Total Score: 0 10/27/19 24 10:30 AM EDT documented as of this encounter Care Teams Community Affairs Director Relationship Specialty Start Date End Date Eva Conrad MD [address] [place] [address] PCP - General Family Medicine 03/10/17 Donald Gallegos, PharmD [address] [place] [address] Pharmacist Internal Medicine 10/01/22 documented as of this encounter
== END 2024-12-27 14:46 | disposition home or self-care (01) ==
LOC: HO.HKA 14:35
PROVIDERS: PCP Internal Medicine; Visit Provider Internal Medicine Hypertension Specialist
DX: N18.6 End stage renal disease (principal)
CPT/HCPCS: 99024

== ENCOUNTER → 2024-12-27 14:34 | Outpatient (BNVA) | payer MEDICARE, MEDICAID, SELFPAY | PROVIDERS: PCP Internal Medicine; Visit Provider Internal Medicine Hypertension Specialist | DX: N18.6 End stage renal disease (principal) | CPT/HCPCS: 99212 ==

== ENCOUNTER → 2025-01-22 23:59 | Outpatient (BNV) | payer MEDICARE, MEDICAID, SELFPAY | PROVIDERS: PCP Internal Medicine; Visit Provider Internal Medicine Hypertension Specialist | DX: N18.6 End stage renal disease (principal) | CPT/HCPCS: 90962 ==

== ENCOUNTER 2025-01-24 14:44 | Outpatient (AMB) | payer MEDICARE, MEDICAID, SELFPAY ==
--- NOTE | 2025-01-24 14:42 | HO.NEPHOV ---
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 Social History Household Members: None Alcohol intake: never Patient Tobacco Use Status: Never used Tobacco Telehealth Telehealth Telehealth Platform: Telephone Location of provider rendering services: practice address Location of patient: address on file Patient Identification confirmed using: Name, : Yes Telehealth method: voice only Patient verbally consented to treatment: Yes Patient verbally consented to billing insurance company: Yes Patient informed of any privacy concerns related to visit: Yes Results Reviewed Nephrology Results: Renal US 11/19/20 Assessment & Plan Assessment & Plan (1) ESRD (end stage renal disease): Code(s): N18.6 - End stage renal disease Category: Medical Plan see dialysis emr Coding Level of Care Code Global (01644) Diagnoses ESRD (end stage renal disease) N18.6
--- OUTSIDE RECORDS SUMMARY | 2025-01-24 14:47 | XMS_ITS | Clinical Summary ---
Author Organization [facility] [employer] Address [address] [facility] 7t [place] [address] Care Team Providers Care Antique Clock Repairer Name Role Phone Osman Godoy MD Primary Care Provider + Donald Gallegos PharmD Unavailable [phone] Allergies Active Allergy Reactions Criticality Noted Date Comments Crab Extract 01/13/2023 Shellfish-Derived Products Medications NIFEdipine XL (Procardia XL) 60 MG 24 hr tablet Take 1 tablet by mouth daily Active furosemide (Lasix) 20 MG tablet take [...] water and drink for full dose Active betamethasone valerate (Valisone) 0.1 % cream Apply topically if needed in the morning and at bedtime (dryness). 45 g 2 Active glimepiride (Amaryl) 1 MG tablet TAKE 1 TABLET BY MOUTH EVERY DAY 90 tablet 3 Active Blood Glucose Monitoring Suppl (FreeStyle Lite) w/Device kit 1 each Once per day. 1 kit 024 2024 Active TRUEplus Lancets 33G misc Use to test blood sugar daily 100 each 3 Active glucose blood (FREESTYLE LITE) test strip TEST BLOOD SUGAR ONCE DAILY 100 each 11 Active glucose (Glutose) 40 % gel oral gel Take 15 g by mouth if needed for low blood sugar. 225 g 3 Active cholecalciferol (Vitamin D-3) 50 MCG (2000 [...] up to 5 days. 10 tablet Active calcitriol (Rocaltrol) 0.25 MCG capsule Take 1 capsule by mouth. 3 times a week Active mupirocin (Bactroban) 2 % ointment APPLY A SMALL AMOUNT TO AFFECTED AREA EVERY DAY Active omeprazole (PriLOSEC) [address] capsule Take 1 capsule by mouth if needed each day. Active simvastatin (Zocor) 40 MG tablet TAKE 1 TABLET(40 MG) BY MOUTH AT BEDTIME 90 tablet 1 Active fluticasone (Flonase) 50 MCG/ACT nasal spray Administer 1 spray into each nostril Once per day. 16 g 025 2024 Active benzonatate (Tessalon Perles) 100 MG capsule Take 1 capsule (100 mg) by mouth if needed in the morning and at bedtime for cough for up to 7 days. Do not crush or chew. 14 capsule 025 2024 Active Omeprazole 20 MG tablet delayed-release Take 20 mg by mouth if needed each day (abd pain). 30 tablet 11 024 2024 Discontinued(M ed list cleanup (will not trigger notification to Pharmacy)) simvastatin (Zocor) 40 MG tablet TAKE 1 TABLET(40 MG) BY MOUTH AT BEDTIME 90 tablet 1 024 2024 Discontinued fluticasone (Flonase) 50 MCG/ACT nasal spray Administer 1 spray into each nostril Once per day. 16 g 2 2024 Discontinued(R eorder (will not trigger notification [...] next week if symptoms continue. Follow-up with brush washer. DC simvastatin until symptoms resolve completely Take [...] Zuniga at [facility] Assessment & Plan (10/19/2024 3:33 PM EDT): Doing well on PD 3x/d, she is getting trained to do with once per day overnight. Follow-up with nephrology [facility] dialysis [facility] in his [place]. She will check immunizations and get Tdap [...] months Pt has CKD 4, FU with brush washer. NO evidence of uremic symptoms. Assessment & [...] Continue vitamin d supplementation and fu with brush washer. Pt received influenza IZ today. Vitamin D [...] EDT): >>ASSESSMENT AND PLAN FOR OBESITY, MORBID (CMS/[facility]) WRITTEN ON 05/21/2024 5:24 PM BY [...] other medications FU with HTN clinic and brush washer. Assessment & Plan (10/19/2024 3:34 PM EDT): [...] + metoprolol for now. I will call brush washer to see if she can be switched to labetalol only, mainly due to leg edema Continue Lasix 20mg daily and check BMP prior to appointment w/ renal in 2 wks. Assessment & Plan (09/23/2022 12:19 PM EST): Borderline controlled. Reminded compliance with Lasix TIW No change in other medications FU with HTN clinic and brush washer. Hyperlipidemia 04/10/2012 Gastroesophageal reflux disease 04/10/2012 Resolved [...] + anemia needs to FU closely with brush washer, reschedule appointment. Encounters Date Type Department Care Team Description 01/21/2025 10:00 AM EDT Office Visit [facility] [address] [place] [phone] Osman Godoy MD Other hyperlipidemia (Primary Dx); Diabetic nephropathy associated with type 2 diabetes mellitus ([facility]) 01/21/2025 Travel 01/21/2025 Telephone [facility] [address] [place] [phone] Osman Godoy MD Chart Prep 01/13/2025 Refill [facility] [address] [place] [phone] Osman Godoy MD 01/03/2025 Telephone [facility] [address] [place] [phone] Osman Godoy MD Appointment Request 01/02/2025 Telephone [facility] [address] [place] [phone] Osman Godoy MD Chart prep 12/24/2024 Telephone [facility] [address] [place] [phone] Haylee Leyva, DELFINA Appointment Request 11/06/2024 Telephone [facility] [address] [place] [phone] Osman Godoy MD Bailey recall 11/02/2024 Telephone [facility] [address] [place] [phone] Osman Godoy MD Med Refill 11/01/2024 Telephone [facility] [address] [place] [address] Haylee Leyva RN Care Coordination 10/31/2024 5:00 PM EDT Office Visit [facility] [address] [place] [address] Osman Godoy MD Cervical paraspinal muscle spasm (Primary Dx); Vitamin D deficiency 10/26/2024 Telephone [facility] [address] [place] [address] Osman Godoy MD telephone call from Last 3 Months Immunizations Immunization Administration Dates Next Due HepB-CpG 09/24/2024 Influenza High-dose Quadriva lent Preservative Free 05/04/2022 Influenza injectable quadriv alent IIV4 with preservative 09/23/2022 Influenza injectable quadriv alent preservative free 07/06/2016,07/22/2015 Influenza, High Dose Seasona l, Preservative Free 05/20/2016,02/26/2015 Influenza, IIV3, injectable 04/30/2014, 1 Influenza, Recombinant, inje ctable, preservative free 05/08/2024 Influenza, Split (incl. lily fied surface antigen) [...] Date Recorded Patient Health Questionnaire-9 Score 0 01/21/2025 Patient Health Questionnaire-9 Score 0 01/21/2025 Last PHQ-9: Questionnaire Data Not on file 0 01/21/2025 Housing Stability Answer Date Recorded What is [...] Date Recorded Patient Health Questionnaire-2 Score 0 01/21/2025 Internet Access Answer Date Recorded Internet Access [...] Sign Reading Time Taken Comments Blood Pressure 130/80 01/21/2025 10:50 AM EDT Pulse 78 01/21/2025 10:06 AM EDT Temperature 37 C (98.6 F) 01/21/2025 10:06 AM EDT Respiratory Rate 16 01/21/2025 10:06 AM EDT Oxygen Saturation 100% 10/31/2024 4:49 PM EDT Inhaled Oxygen Concentration - - Weight 102 kg (225 lb) 01/21/2025 10:06 AM EDT Height 166.5 cm (5' 5.55 ) 01/21/2025 10:06 AM E DT Body Mass Index 36.82 01/21/2025 10:06 AM EDT Plan of Treatment Health Maintenance Due Date Last Done Comments Dental Prophylaxis 1944 Alcohol/Substance Use Screening 1956 RSV Patients and Patients Aged 60 years or older (1 - 1-dose 75+ series) 12/22/2019 Lipid Panel 12/15/2022 12/15/2021, 04/18/2020 Dental Oral Exam 02/11/2023 08/13/2022 Dental X-Ray: Bitewings 08/14/2023 08/13/2022 DTaP/Tdap/Td Vaccines (2 - Td or Tdap) 01/10/2024 01/09/2014, 01/16/2009, 01/16/2009 COVID-19 Vaccine ( - season) 2024 12/15/2021, 10/07/2020, 09/09/2020 Hepatitis B Vaccines (2 of 2 - CpG 2-dose series) 10/22/2024 09/24/2024, 09/24/2024 Influenza Vaccine (#1) 2025 , 05/08/2024, 09/23/2022, Additional history exists Diabetes: Hemoglobin A1C 07/23/2025 025, 10/19/2024, 05/21/2024, Additional history exists SDOH Screening 10/10/2025 10/10/2024 Diabetes: Foot Exam 10/19/2025 10/19/2024, 10/19/2024, 10/19/2024, Additional history exists Eye Exam 12/27/2025 07/06/2022 Depression Screening 01/21/2026 01/21/2025, 01/22/20 Tobacco Screening 01/21/2026 01/21/2025 Dental X-Ray: Full Mouth 05/11/2026 05/10/2023, 07/26 Zoster Vaccines Completed 04/20/2022, 01/19/2022 Pneumococcal Vaccine: 50+ Years Completed 05/04/2022 HIB Vaccines Aged Out No longer eligi [...] patient's age to complete this topic Meningococcal B Vaccine Aged Out No l onger eligible based on patient's age to complete [...] Author Blood Pressure < 140/90 Blood Pressure 130/80(2024 10:50 AM EDT) Donald Myers, PharmD Note: CKD Stage IV Procedures Procedure Name Priority Date/Time Associated Diagnosis Comments POCT GLYCATED HEMOGLOBIN, TOTAL Routine 01/21/2025 11:07 AM EDT Diabetic nephropathy associated with type 2 diabetes mellitus ([facility]) POCT GLUCOSE Routine 01/21/2025 11:06 AM EDT Diabetic nephropathy associated with type 2 diabetes mellitus ([facility]) PANORAMIC RADIOGRAPHIC IMAGE Routine 05/10/2023 8:00 AM EDT Edentulism INTRAORAL - COMPLETE SERIES OF RADIOGRAPHIC IMAGES Routine 08/13/2022 8:45 AM EST COMPREHENSIVE ORAL EVALUATION - NEW OR ESTABLISHED PATIENT Routine 08/13/2022 8:45 AM EST HM DIABETES EYE EXAM Routine 07/06/2022 LIPID PANEL, STANDARD Routine 12/15/2021 8:21 AM EDT from Last 3 Months or Most Recently Relevant to Health Maintenance Results * (ABNORMAL) POCT HGB A1C (01/21/2025 11:07 AM EDT) Hemoglobin A1C 5.8(A) 4.0 - 5.7 % QC Media Lot # [id number] Lot# Expiration Date ,226,086 Blood 01/21/2025 11:0 7 AM EDT Osman Godoy MD POINT OF CARE TEST ENTER /EDIT ORDERABLES Final Result * POCT Glucose (01/21/2025 11:06 AM EDT) Glucose Blood, POC 144 60 - 200 mg/dL Comment:random QC Media Lot # [id number] Lot# Expiration Date Blood Capillary blood specimen / Unknown 01/21/2025 11:06 AM EDT Osman Godoy MD POINT OF CARE TEST ENTER /EDIT ORDERABLES Final Result * Hm Diabetes Eye Exam (07/06/2022) Eye [...] [facility] Comment: Reference range: <100 Desirable range <100 mg/dL for primary prevention; <70 mg/dL for patients with CHD or diabetic patients with > or = 2 CHD risk factors. LDL-C is now calculated using the Jose Angel-Lopez calculation, which is a validated novel method providing better accuracy than the Friedewald equation in the estimation of LDL-C. Jose Angel SS et al. CORY. 2013;310(19): 1844-5803 (http://education.OpenChime.com/faq/WPU065) Non-HDL Cholesterol 119 <130 mg/dL (calc) [facility] Comment: For patients with diabetes plus 1 major ASCVD risk factor, treating to a non-HDL-C goal of <100 mg/dL (LDL-C of <70 mg/dL) is considered a therapeutic option. Triglycerides 162(H) <150 mg/dL [facility] 12/15/2021 8:21 AM EDT Osman Godoy MD LAB BLOOD ORDERABLES Fin al Result [facility] [address] from Last 3 Months or Most Recently Relevant to Health Maintenance Insurance [facility] ST[facility]ARD [facility] MEDICARE REPLACEMENT DENTAL-[facility] MEDICAID STAND ADULT Care Teams Antique Clock Repairer Relationship Specialty Start Date End Date Osman Godoy MD [address] [place] [address] PCP - General Family Medicine 03/10/17 Donald Gallegos, Nicolette [address] [place] [phone] Pharmacist Internal Medicine 10/01/22
--- OUTSIDE RECORDS SUMMARY | 2025-01-24 14:47 | XMS_ITS | Encounter Summary ---
Author Organization [facility] Address [address] [facility] [address] [place] [address] Phone Care Team Providers Care Extermination Supervisor Name Role Phone Eva Conrad MD Primary Care Provider + [phone] Reason for Visit * Reason Comments Med Refill Encounter Details Date Type Department Care Team (Late st Contact Info) Description 06/07/2021 Refill [facility] [address] [place] [phone] Guero Zuniga MD Social History Tobacco Use [...] on filedocumented in this encounter Care Teams Extermination Supervisor Relationship Specialty Start Date End Date Eva Conrad MD [address] [place] [address] [phone] PCP - General Internal Medicine 10/30/20 documented as of this encounter
== END 2025-01-24 15:53 | disposition home or self-care (01) ==
LOC: HO.HKA 14:45
PROVIDERS: PCP Internal Medicine; Visit Provider Internal Medicine Hypertension Specialist
DX: N18.6 End stage renal disease (principal)
CPT/HCPCS: 99024

== ENCOUNTER → 2025-01-24 14:44 | Outpatient (BNVA) | payer MEDICARE, MEDICAID, SELFPAY | PROVIDERS: PCP Internal Medicine; Visit Provider Internal Medicine Hypertension Specialist | DX: E11.22 Type 2 diabetes mellitus with diabetic chronic kidney disease (principal); I12.9 Hypertensive chronic kidney disease with stage 1 through stage 4 chronic kidney disease, or unspecified chronic kidney disease; N18.6 End stage renal disease | CPT/HCPCS: 99212 ==

== ENCOUNTER 2025-02-26 16:22 | Outpatient (AMB) | payer MEDICARE, MEDICAID, SELFPAY ==
[2025-02-26 16:23] VITALS: BP 142/58; PULSE 83; O2SAT 95; BMI 37.9
--- NOTE | 2025-02-26 16:23 | HO.NEPHOV ---
Vital Signs 02/26/25 16:23 Height 5 ft 5 in Weight 228 lb BMI 37.9 BP 142/58 H Blood Pressure Location Lt brachial Position Sitting Pulse 83 Pulse Source Pulse Oximeter Pulse Oximetry (%) 95 Oxygen Delivery Method Room Air Intake Visit Reasons: 1mon follow-up LVM Power System Engineer Required: No Accompanied by: Grand Child Allergies Crustaceans Allergy (Mild, Uncoded 11/15/24 16:14) SWELLING/HIVES Medication List - Last Reconciled 02/26/25 by Guero Zuniga MD calcitriol 0.25 mcg PO 3XW furosemide 40 mg PO DAILY glimepiride 1 mg PO DAILY nifedipine ER 60 mg PO DAILY omeprazole 20 mg PO DAILY simvastatin 40 mg PO DAILY PFSH Medical History ESRD (end stage renal disease) Hypertension High cholesterol Diabetes Gallbladder & bile duct stone with obstruction Social History Household Members: None Alcohol intake: never Patient Tobacco Use Status: Never used Tobacco Physical Exam Vital Signs: Last Vital Signs Pulse 83 02/26/25 16:23 BP 142/58 H 02/26/25 16:23 Pulse Ox 95 02/26/25 16:23 Oxygen Delivery Method Room Air 02/26/25 16:23 BMI result Body Mass Index 37.9 Results Reviewed Nephrology Results: Renal US 11/19/20 Assessment & Plan Assessment & Plan (1) ESRD (end stage renal disease): Code(s): N18.6 - End stage renal disease Category: Medical Plan see Dialysis EMR Medications: Changed From furosemide 20 mg PO DAILY 30 tabs 6RF To furosemide 40 mg PO DAILY 30 tabs 6RF Coding Level of Care Code Global (71500) Diagnoses ESRD (end stage renal disease) N18.6
--- OUTSIDE RECORDS SUMMARY | 2025-02-26 16:25 | XMS_ITS | Clinical Summary ---
Author Organization [employer] Address [address] [facility] 7t [place] [address] Care Team Providers Care International Student Advisor Name Role Phone Osman Godoy MD Primary Care Provider + Donald Gallegos PharmD Unavailable [phone] Allergies Active Allergy Reactions Criticality Noted Date Comments Crab Extract 01/13/2023 Shellfish-Derived Products 1 Medications NIFEdipine XL (Procardia XL) 60 MG 24 hr tablet Take 1 tablet by mouth daily 04/28/20 22 Active furosemide (Lasix) 20 MG tablet take [...] and at bedtime (dryness). 45 g 2 02/21/20 24 Active glimepiride (Amaryl) 1 MG tablet TAKE 1 TABLET BY MOUTH EVERY DAY 90 tablet 3 05/21/20 24 Active Blood Glucose Monitoring Suppl (FreeStyle Lite) w/Device kit 1 each Once per day. 1 kit 05/21/20 24 025 Active TRUEplus Lancets 33G misc Use to test blood sugar daily 100 each 3 05/21/20 24 Active glucose blood (FREESTYLE LITE) test strip TEST BLOOD SUGAR ONCE DAILY 100 each 11 05/22/20 24 Active glucose (Glutose) 40 % gel oral gel Take 15 g by mouth if needed for low blood sugar. 225 g 3 10/20/19 25 Active cholecalciferol (Vitamin D-3) 50 MCG (2000 UT) capsule Take 1 capsule (50 mcg) by mouth Once per day. 30 capsule 11 11/01/19 25 Active sucralfate (Carafate) 1 g tablet Take 1 tablet (1 g) by mouth before breakfast and before evening meal. 120 tablet 11/03/19 25 Active diazePAM (Valium) 2 MG tablet Take 1 tablet (2 mg) by mouth if needed in the morning and at bedtime for anxiety for up to 5 days. 10 tablet 11/03/19 25 Active calcitriol (Rocaltrol) 0.25 MCG capsule Take 1 capsule by mouth. 3 times a week 12/15/19 25 Active mupirocin (Bactroban) 2 % ointment APPLY A SMALL AMOUNT TO AFFECTED AREA EVERY DAY 11/01/19 25 Active omeprazole (PriLOSEC) [address] capsule Take 1 capsule by mouth if needed each day. 11/18/19 25 Active simvastatin (Zocor) 40 MG tablet TAKE 1 TABLET(40 MG) BY MOUTH AT BEDTIME 90 tablet 1 01/15/20 25 Active fluticasone (Flonase) 50 MCG/ACT nasal spray Administer 1 spray into each nostril Once per day. 16 g 01/22/20 25 Active benzonatate (Tessalon Perles) 100 MG capsule Take 1 capsule (100 mg) by mouth if needed in the morning and at bedtime for cough for up to 7 days. Do not crush or chew. 14 capsule 01/22/20 25 025 Active Problems Problem Noted Date Diagnosed Date Acute gastroenteritis 01/25/2025 Assessment & Plan (01/25/2025 5:56 PM EDT): Resolved, tolerates p.o. Reconsult as needed Cervical paraspinal muscle spasm 10/31/2024 Assessment & Plan (10/31/2024 5:25 PM EDT): Advised patient to apply heat on affected area and gave her information regarding stretching exercises for her neck. Use a sleep pillow/neck support pillow as needed pain DC vitamin D, it may have driven calcium levels even lower. She will recheck calcium levels next week if symptoms continue. Follow-up with campaign management senior manager. DC simvastatin until symptoms resolve completely Take [...] Zuniga at [facility] Assessment & Plan (10/19/2024 3:33 PM EDT): Doing well on PD 3x/d, she is getting trained to do with once per day overnight. Follow-up with nephrology [facility] dialysis [facility] in his [place]. She will check immunizations and get Tdap [...] with home care program, they will call [facility]. Venous stasis dermatitis 02/21/2024 Assessment & Plan [...] 2 diabetes mellitus 10/30/2020 Assessment & Plan (01/25/2025 5:54 PM EDT): Peritoneal dialysis overnight, doing well Her A1c is at goal, she will continue of Amaryl and check fingersticks once a day, watch off S/S hypoglycemia. Counseled regarding more frequent and low calorie meals Physical activity as tolerated Follow-up in 3 to 4 months Assessment & Plan (10/19/2024 3:36 PM EDT): [...] months Pt has CKD 4, FU with campaign management senior manager. NO evidence of uremic symptoms. Assessment & [...] Continue vitamin d supplementation and fu with campaign management senior manager. Pt received influenza IZ today. Vitamin D [...] EDT): >>ASSESSMENT AND PLAN FOR OBESITY, MORBID (CMS/HCC) WRITTEN ON 05/21/2024 5:24 PM BY OSMAN [...] other medications FU with HTN clinic and campaign management senior manager. Assessment & Plan (10/19/2024 3:34 PM EDT): [...] + metoprolol for now. I will call campaign management senior manager to see if she can be switched to labetalol only, mainly due to leg edema Continue Lasix 20mg daily and check BMP prior to appointment w/ renal in 2 wks. Assessment & Plan (09/23/2022 12:19 PM EST): Borderline controlled. Reminded compliance with Lasix TIW No change in other medications FU with HTN clinic and campaign management senior manager. Hyperlipidemia 04/10/2012 Assessment & Plan (01/25/2025 5:52 PM EDT): Check lipid profile prior to next appointment. Continue simvastatin 40 mg Gastroesophageal reflux disease 04/10/2012 Resolved Problems Problem [...] + anemia needs to FU closely with campaign management senior manager, reschedule appointment. Encounters Date Type Department Care Team Description 01/21/2025 10:00 AM EDT Office Visit [address] [address] Osman Godoy MD Acute gastroenteritis (Primary Dx); Other hyperlipidemia; Diabetic nephropathy associated with type 2 diabetes mellitus ([facility]) 01/21/2025 Travel 01/21/[address] [address] Osman Godoy MD Chart Prep 01/13/[address] [address] Osman Godoy MD 01/03/[address] [address] Osman Godoy MD Appointment Request 01/02/[address] [address] Osman Godoy MD Chart prep 12/24/[address] [address] Haylee Leyva, RN Appointment Request from Last 3 Months Immunizations Immunization Administration [...] the past 12 months, has t he [employer], [employer], oil or water [employer] threatened to shut off services in your [...] nephropathy associated with type 2 diabetes mellitus ([facility]) POCT GLUCOSE Routine 01/21/2025 11:06 AM EDT Diabetic nephropathy associated with type 2 diabetes mellitus ([facility]) PANORAMIC RADIOGRAPHIC IMAGE Routine 05/10/2023 8:00 AM [...] Media Lot # [id number] Lot# Expiration Date Blood 01/21/2025 11:0 7 AM EDT Osman [...] Eye Exam (07/06/2022) Eye Exam Normal Normal Marilee Pickens MD HEALTH MAINTENANCE Edited Result - Final * [...] factors. LDL-C is now calculated using the Weston calculation, which is a validated novel method providing better accuracy than the Friedewald equation in the estimation of LDL-C. Jose Angel SS et al. CORY. 2013;310(19): 9245-9137 (http://education.[employer]merse Learning/faq/WNX655) Non-HDL Cholesterol 119 <130 mg/dL (calc) [facility] Comment: For patients with diabetes plus 1 major ASCVD risk factor, treating to a non-HDL-C goal of <100 mg/dL (LDL-C of <70 mg/dL) is considered a therapeutic option. Triglycerides 162(H) <150 mg/dL [facility] 12/15/2021 8:21 AM EDT Osman Godoy MD LAB BLOOD ORDERABLES Fin al Result [facility] [address] from Last 3 Months or Most Recently Relevant to Health Maintenance Insurance [facility]ANDARD [facility] MEDICARE REPLACEMENT DENTAL-[facility] MEDICAID STAND ADULT Care Teams International Student Advisor Relationship Specialty Start Date End Date Osman Godoy MD [address] [place] [address] PCP - General Family Medicine 03/10/17 Donald Gallegos, PharmD [address] [place] [id number] Pharmacist Internal Medicine 10/01/22
--- OUTSIDE RECORDS SUMMARY | 2025-02-26 16:25 | XMS_ITS | Encounter Summary ---
Author Organization [facility] Address [address] [facility] [address] [place] [address] Phone Care Team Providers Care Animal Pathology Teacher Name Role Phone Eva Conrad MD Primary Care Provider + [phone] Reason for Visit * Reason Comments Med Refill Encounter Details Date Type Department Care Team (Late st Contact Info) Description 06/07/2021 Refill [facility] [address] [place] [address] Guero Zuniga MD Social History Tobacco Use [...] on filedocumented in this encounter Care Teams Animal Pathology Teacher Relationship Specialty Start Date End Date Eva Conrad MD PCP - General Internal Medicine 10/30/20 documented as of this encounter
== END 2025-02-26 16:31 | disposition home or self-care (01) ==
LOC: HO.HKA 16:23
PROVIDERS: PCP Internal Medicine; Visit Provider Internal Medicine Hypertension Specialist
DX: N18.6 End stage renal disease (principal)
CPT/HCPCS: 99024

== ENCOUNTER → 2025-02-26 16:22 | Outpatient (BNVA) | payer MEDICARE, MEDICAID, SELFPAY | PROVIDERS: PCP Internal Medicine; Visit Provider Internal Medicine Hypertension Specialist | DX: E11.22 Type 2 diabetes mellitus with diabetic chronic kidney disease (principal); I12.9 Hypertensive chronic kidney disease with stage 1 through stage 4 chronic kidney disease, or unspecified chronic kidney disease; N18.6 End stage renal disease; Z79.84 Long term (current) use of oral hypoglycemic drugs | CPT/HCPCS: 99212 ==

== ENCOUNTER 2025-04-02 15:35 | Outpatient (AMB) | payer MEDICARE, MEDICAID, SELFPAY ==
[2025-04-02 15:38] VITALS: BP 142/56; PULSE 79; O2SAT 96; BMI 38.8
--- NOTE | 2025-04-02 15:38 | HO.NEPHOV_ITS ---
Vital Signs 04/02/25 15:38 Height 5 ft 5 in Weight 233 lb BMI 38.8 BP 142/56 H Blood Pressure Location Lt brachial Position Sitting Pulse 79 Pulse Source Pulse Oximeter Pulse Oximetry (%) 96 Oxygen Delivery Method Room Air Intake Visit Reasons: 1 MO FU-Conf Farm Operations Manager Required: No Accompanied by: Grand Child Allergies Crustaceans Allergy (Mild, Uncoded 11/15/24 16:14) SWELLING/HIVES PFSH Medical History ESRD (end stage renal disease) Hypertension High cholesterol Diabetes Gallbladder & bile duct stone with obstruction Social History Household Members: None Alcohol intake: never Patient Tobacco Use Status: Never used Tobacco Physical Exam Vital Signs: Last Vital Signs Pulse 79 04/02/25 15:38 BP 142/56 H 04/02/25 15:38 Pulse Ox 96 04/02/25 15:38 Oxygen Delivery Method Room Air 04/02/25 15:38 BMI result Body Mass Index 38.8 Results Reviewed Nephrology Results: Renal US 11/19/20 Assessment & Plan Assessment & Plan (1) ESRD (end stage renal disease): Code(s): N18.6 - End stage renal disease Category: Medical Plan see dialysis EMR Coding Level of Care Code Global (37605) Diagnoses ESRD (end stage renal disease) N18.6
--- OUTSIDE RECORDS SUMMARY | 2025-04-02 17:43 | XMS_ITS | Encounter Summary ---
Author Organization [facility] Address [address] [facility] [address] [place] [address] Phone Care Team Providers Care Spray Drier Operator Helper Name Role Phone Eva Conrad MD Primary Care Provider + [phone] Reason for Visit * Reason Comments Med Refill Encounter Details Date Type Department Care Team (Late st Contact Info) Description 06/07/2021 Refill [facility] [address] [place] [phone] Guero Zuniga MD Social History Tobacco Use [...] on filedocumented in this encounter Care Teams Spray Drier Operator Helper Relationship Specialty Start Date End Date Eva Conrad MD [address] [place] [address] [phone] PCP - General Internal Medicine 10/30/20 documented as of this encounter
--- OUTSIDE RECORDS SUMMARY | 2025-04-02 17:43 | XMS_ITS | Encounter Summary ---
Author Organization [facility] Address [address] [place] [address] Phone Care Team Providers Care Outside Sales Inspector Name Role Phone Eva Conrad MD Primary Care Provider [phone] Encounter Details Date Type Department Care Team (Late st Contact Info) Description 11/13/2021 Documentation Only [facility] [address] [place] [address] Guero Zuniga MD Social History [...] on filedocumented in this encounter Care Teams Outside Sales Inspector Relationship Specialty Start Date End Date Eva Conrad MD [address] [place] [address] [phone] PCP - General Internal Medicine 10/30/20 documented as of this encounter
--- OUTSIDE RECORDS SUMMARY | 2025-04-02 17:43 | XMS_ITS | Encounter Summary ---
Author Organization [facility] Address [address] [facility] [address] [address] [place] [address] Phone Care Team Providers Care Quality Assurance Auditor Name Role Phone Eva Conrad MD Primary Care Provider [phone] Encounter Details Date Type Department Care Team (Late st Contact Info) Description 11/04/2020 Documentation Only [facility] [address] [facility] [address] [place] [address] Vladislav Pickett MD Social History [...] (HCC) documented in this encounter Care Teams Quality Assurance Auditor Relationship Specialty Start Date End Date Eva Conrad MD [address] [place] [phone] PCP - General Internal Medicine 10/30/20 documented as of this encounter
--- OUTSIDE RECORDS SUMMARY | 2025-04-02 17:43 | XMS_ITS | Clinical Summary ---
Author Organization [facility] Address [address] [facility] [address] [place] [address] Phone Care Team Providers Care Last Sawyer Name Role Phone Eva Conrad MD Primary Care Provider [phone] Allergies Active Allergy Reactions Criticality Noted Date [...] + anemia needs to FU closely with senior solutions consultant, reschedule appointment. Hypertensive heart disease without congestive [...] months Pt has CKD 4, FU with senior solutions consultant. NO evidence of uremic symptoms. Chronic kidney disease stage 4 10/30/2020 Vitamin D deficiency 01/13/2018 Hyperparathyroidism 01/13/2018 04/18/2023 Overview (04/18/2023): Last Assessment & Plan: Continue vitamin d supplementation and fu with senior solutions consultant. Pt received influenza IZ today. Adjustment disorder with depressed mood 12/08/19 18 04/18/2023 Obesity 10/09/2012 07/14/2023 Hypertensive disorder 04/10/2012 04/18/2023 Overview (04/18/2023): Last Assessment & Plan: Borderline controlled. Reminded compliance with Lasix TIW No change in other medications FU with HTN clinic and senior solutions consultant. Hyperlipidemia 04/10/2012 04/18/2023 Gastroesophageal reflux disease 04/10/2012 [...] Visual Foot Exam 08/25/2020 Diabetes: Hemoglobin A1C 01/19/2025 10/19/2024, 02/22 Influenza Vaccine (#1) 2025 , 09/23/2022, 05/04/2022, Additional history exists Pneumococcal Vaccine: 50+ Years [...] EDT) Hemoglobin A1C 6.8 % RADHA Comment: Hemoglobin A1C Reference Range Adults: 4.8 - 6.0 % Non diabetic: < 6.0 % Goal: < 7.0 % Additional Action Suggested: > 8.0 % Note: Hemoglobin A1c results are invalid for patients with abnormal amounts of HbF. Blood transfusions may impact the HbA1c concentration in the patient sample. Estimated Average Glucose 148 mg/dL RADHA Comment: eAG = Estimated average glucose which is %A1C expressed as average glucose, using the formula of the M4N-Ahtyfog Average Glucose study (ADAG), Diabetes Care, Vol.31,#8, Feb. 2007 03/06/2021 10:2 3 AM EDT 03/06/2021 10:23 AM EDT Guero Zuniga MD LAB BLOOD ORDERABLES Final Res ult RADHA from Last 3 Months or Most Recently Relevant to Health Maintenance Insurance Medicaid [place] UHC Medicare UHC Medicare Medicaid [place] Care Teams Last Sawyer Relationship Specialty Start Date End Date Eva Conrad MD [address] [place] [id number] PCP - General Internal Medicine 10/30/20
== END 2025-04-02 15:49 | disposition home or self-care (01) ==
LOC: HO.HKA 15:36
PROVIDERS: PCP Internal Medicine; Visit Provider Internal Medicine Hypertension Specialist
DX: N18.6 End stage renal disease (principal)
CPT/HCPCS: 99024

== ENCOUNTER → 2025-04-02 15:35 | Outpatient (BNVA) | payer MEDICARE, MEDICAID, SELFPAY | PROVIDERS: PCP Internal Medicine; Visit Provider Internal Medicine Hypertension Specialist | DX: I12.9 Hypertensive chronic kidney disease with stage 1 through stage 4 chronic kidney disease, or unspecified chronic kidney disease (principal); N18.6 End stage renal disease; Z79.84 Long term (current) use of oral hypoglycemic drugs; E11.22 Type 2 diabetes mellitus with diabetic chronic kidney disease | CPT/HCPCS: 99212 ==

== ENCOUNTER → 2025-04-24 23:59 | Outpatient (BNV) | payer MEDICARE, MEDICAID, SELFPAY | PROVIDERS: PCP Internal Medicine; Visit Provider Internal Medicine Hypertension Specialist | DX: N18.6 End stage renal disease (principal) | CPT/HCPCS: 90962 ==

== ENCOUNTER 2025-04-30 15:58 | Outpatient (AMB) | payer MEDICARE, MEDICAID, SELFPAY ==
--- NOTE | 2025-04-30 16:03 | HO.NEPHOV_ITS ---
Vital Signs 04/30/25 16:04 Height 5 ft 5 in Weight 232 lb BMI 38.6 BP 136/60 Blood Pressure Location Lt brachial Position Sitting Pulse 78 Pulse Source Pulse Oximeter Pulse Oximetry (%) 97 Oxygen Delivery Method Room Air Intake Visit Reasons: 1mon f/u, confirmed Assistant Elementary Teacher Required: Yes Assistant Elementary Teacher Language: Marketing Operations Consultant Services: Assistant Elementary Teacher Offered & Declined ([facility] Assistant Elementary Teacher services refused ) Accompanied by: Daughter Allergies Crustaceans Allergy (Mild, Uncoded 11/15/24 16:14) SWELLING/HIVES PFSH Medical History ESRD (end stage renal disease) Hypertension High cholesterol Diabetes Gallbladder & bile duct stone with obstruction Social History Household Members: None Alcohol intake: never Patient Tobacco Use Status: Never used Tobacco Physical Exam Vital Signs: Last Vital Signs Pulse 78 04/30/25 16:04 BP 136/60 04/30/25 16:04 Pulse Ox 97 04/30/25 16:04 Oxygen Delivery Method Room Air 04/30/25 16:04 BMI result Body Mass Index 38.6 Results Reviewed Nephrology Results: Renal US 11/19/20 Assessment & Plan Assessment & Plan (1) ESRD (end stage renal disease): Code(s): N18.6 - End stage renal disease Category: Medical Plan See dialysis EMR note Coding Level of Care Code Global (15174) Diagnoses ESRD (end stage renal disease) N18.6
[2025-04-30 16:04] VITALS: BP 136/60; PULSE 78; O2SAT 97; BMI 38.6
--- OUTSIDE RECORDS SUMMARY | 2025-04-30 18:48 | XMS_ITS | Encounter Summary ---
Author Organization [facility] Address [address] [place] [address] Phone Care Team Providers Care Parts Counter Salesperson Name Role Phone Eva Conrad MD Primary Care Provider [phone] Encounter Details Date Type Department Care Team (Late st Contact Info) Description 11/04/2020 Documentation Only [facility] [address] [place] [address] Vladislav Pickett MD Social History [...] (HCC) documented in this encounter Care Teams Parts Counter Salesperson Relationship Specialty Start Date End Date Eva Conrad MD [address] [place] [phone] PCP - General Internal Medicine 10/30/20 documented as of this encounter
--- OUTSIDE RECORDS SUMMARY | 2025-04-30 18:48 | XMS_ITS | Encounter Summary ---
Author Organization [facility] Address [address] [place] [address] Phone Care Team Providers Care Barrel Builder Name Role Phone Eva Conrad MD Primary Care Provider [phone] Encounter Details Date Type Department Care Team (Late st Contact Info) Description 11/13/2021 Documentation Only [facility] [address] [place] [address] Guero Zuniga MD Social History [...] on filedocumented in this encounter Care Teams Barrel Builder Relationship Specialty Start Date End Date Eva Conrad MD [address] [place] [address] [phone] PCP - General Internal Medicine 10/30/20 documented as of this encounter
--- OUTSIDE RECORDS SUMMARY | 2025-04-30 18:48 | XMS_ITS | Clinical Summary ---
Author Organization [facility] Address [address] [facility] [address] [place] [address] Phone Care Team Providers Care Dealer Compliance Representative Name Role Phone Eva Conrad MD Primary Care Provider [phone] Allergies Active Allergy Reactions Criticality Noted Date [...] + anemia needs to FU closely with carbon printer, reschedule appointment. Hypertensive heart disease without congestive [...] months Pt has CKD 4, FU with carbon printer. NO evidence of uremic symptoms. Chronic kidney disease stage 4 10/30/2020 Vitamin D deficiency 01/13/2018 Hyperparathyroidism 01/13/2018 04/18/2023 Overview (04/18/2023): Last Assessment & Plan: Continue vitamin d supplementation and fu with carbon printer. Pt received influenza IZ today. Adjustment disorder with depressed mood 12/08/19 18 04/18/2023 Obesity 10/09/2012 07/14/2023 Hypertensive disorder 04/10/2012 04/18/2023 Overview (04/18/2023): Last Assessment & Plan: Borderline controlled. Reminded compliance with Lasix TIW No change in other medications FU with HTN clinic and carbon printer. Hyperlipidemia 04/10/2012 04/18/2023 Gastroesophageal reflux disease 04/10/2012 [...] average glucose, using the formula of the R9L-Xswygvi Average Glucose study (ADAG), Diabetes Care, Vol.31,#8, Feb. 2007 03/06/2021 10:2 3 AM EDT 03/06/2021 10:23 AM EDT Guero Zuniga MD LAB BLOOD ORDERABLES Final Res ult RADHA from Last 3 Months or Most Recently Relevant to Health Maintenance Insurance Medicaid [place] UHC Medicare UHC Medicare Medicaid [place] Care Teams Dealer Compliance Representative Relationship Specialty Start Date End Date Eva Conrad MD [address] [place] [id number] PCP - General Internal Medicine 10/30/20
--- OUTSIDE RECORDS SUMMARY | 2025-04-30 18:48 | XMS_ITS | Encounter Summary ---
Author Organization [employer] Address [address] [facility] [address]t [place] [address] Care Team Providers Care Tool And Die Maker/Designer Name Role Phone Eva Conrad MD Primary Care Provider + Donald Gallegos PharmD Unavailable [phone] Encounter Details Date Type Department Care Team ([facility] Contact Info) Description 09/24/2022 Abstract [facility] [address] [place] [address] Saud Crawford, DMD [address] [place] [address] Social History Tobacco Use Types Packs/Day Years [...] Upcoming Encounters Date Type Department Care Team ([facility] Contact Info) Description 06/26/2025 9:00 AM EST Office Visit [facility] [address] [place] [address] Eva Conrad MD [address] [place] [address] documented as of this encounter Visit Diagnoses Not on filedocumented in this encounter Care Teams Tool And Die Maker/Designer Relationship Specialty Start Date End Date Eva Conrad MD [address] [place] [address] PCP - General Family Medicine 03/10/17 Donald Gallegos, LissaD [address] [place] [address] Pharmacist Internal Medicine 10/01/22 documented as of this encounter
--- OUTSIDE RECORDS SUMMARY | 2025-04-30 18:48 | XMS_ITS | Clinical Summary ---
Author Organization [employer] Address [address] [facility] 7t [place] [address] Care Team Providers Care Emergency Room Specialist Name Role Phone Eva Godoy MD Primary Care Provider + Donald Gallegos PharmD Unavailable [phone] Allergies Active Allergy Reactions Criticality Noted [...] water and drink for full dose Active glimepiride (Amaryl) 1 MG tablet TAKE [...] ONCE DAILY 100 each 11 4 Active glucose (Glutose) 40 % gel oral gel Take 15 g by mouth if needed for low blood sugar. 225 g 3 5 Active cholecalciferol (Vitamin D-3) 50 MCG (2000 UT) capsule Take 1 capsule (50 mcg) by mouth Once per day. 30 capsule 11 5 Active sucralfate (Carafate) 1 g tablet Take 1 tablet (1 g) by mouth before breakfast and before evening meal. 120 tablet 5 Active diazePAM (Valium) 2 MG tablet Take 1 tablet (2 mg) by mouth if needed in the morning and at bedtime for anxiety for up to 5 days. 10 tablet 5 Active calcitriol (Rocaltrol) 0.25 MCG capsule Take 1 capsule by mouth. 3 times a week 5 Active mupirocin (Bactroban) 2 % ointment APPLY A SMALL AMOUNT TO AFFECTED AREA EVERY DAY 5 Active simvastatin (Zocor) 40 MG tablet TAKE 1 TABLET(40 MG) BY MOUTH AT BEDTIME 90 tablet 1 5 Active fluticasone (Flonase) 50 MCG/ACT nasal spray Administer 1 spray into each nostril Once per day. 16 g 5 Active omeprazole (PriLOSEC) [address] capsuleIndication s:Gastroesophagea l reflux disease, unspecified whether esophagitis present Take 1 capsule (20 mg) by mouth before breakfast. 90 capsule 3 5 Active betamethasone valerate (Valisone) 0.1 % cream APPLY 1 GRAM TOPICALLY TO AFFECTED AREA(S) TWICE DAILY IN THE MORNING AND AT BEDTIME NEEDED FOR DRYNESS 45 g 2 5 Active Active Problems Problem Noted Date Diagnosed [...] next week if symptoms continue. Follow-up with experimental plastics fabricator. DC simvastatin until symptoms resolve completely Take Tylenol twice daily as needed pain Valium 2 mg twice daily as needed severe neck pain, maximum of 3 days. We discussed about sedated effects, potential and mental status changes and respiratory depression. Patient lives with her son who will check her during the daytime. ESRD (end stage renal disease) on dialysis ([facility]) 05/21/2024 Overview (05/21/2024): Seen by Dr Zuniga at [facility] Assessment & Plan (10/19/2024 3:33 PM EDT): Doing well on PD 3x/d, she is getting trained to do with once per day overnight. Follow-up with nephrology [facility] dialysis [facility] in his [place]. She will check immunizations and get Tdap [...] c kidney disease, not on chronic dialysis ([facility]) 01/27/2024 Assessment & Plan (02/21/2024 6:42 PM [...] months Pt has CKD 4, FU with experimental plastics fabricator. NO evidence of uremic symptoms. Assessment & [...] Continue vitamin d supplementation and fu with experimental plastics fabricator. Pt received influenza IZ today. Vitamin D [...] EDT): >>ASSESSMENT AND PLAN FOR OBESITY, MORBID (CMS/[facility]ER[facility]) WRITTEN ON 05/21/2024 5:24 PM BY EVA GODOY MD Discussed re weight reduction options [...] other medications FU with HTN clinic and experimental plastics fabricator. Assessment & Plan (10/19/2024 3:34 PM EDT): [...] + metoprolol for now. I will call experimental plastics fabricator to see if she can be switched to labetalol only, mainly due to leg edema Continue Lasix 20mg daily and check BMP prior to appointment w/ renal in 2 wks. Assessment & Plan (09/23/2022 12:19 PM EST): Borderline controlled. Reminded compliance with Lasix TIW No change in other medications FU with HTN clinic and experimental plastics fabricator. Hyperlipidemia 04/10/2012 Assessment & Plan (01/25/2025 5:52 PM EDT): Check lipid profile prior to next appointment. Continue simvastatin 40 mg Gastroesophageal reflux disease 04/10/2012 Resolved Problems Problem Noted Date Diagnosed Date Resolved Date Angina pectoris, unspecified 10/19/2024 10/19/2024 Stage 4 chronic kidney disease ([facility]/HCC) 10/30/2020 05/21/2024 Assessment & Plan (10/27/2023 11:08 AM EDT): Likely worsened due to recent Covid + dehydration + use of NSAIDS Check electrolytes, no evidence of anemia Continue Vit D Daily FU w/ renal in 2 wks Assessment & Plan (09/23/2022 12:16 PM EST): GFR is stable, no significant electrolyte imbalances she has secondary hyper PTH + anemia needs to FU closely with experimental plastics fabricator, reschedule appointment. Encounters Date Type Department Care Team Description 03/20/2025 Telephone [facility] [address] [place], [place] [phone] Eva Godoy MD may03/13/2025 Refill [facility] [address] [place], [place] [phone] Eva Godoy MD 03/13/2025 Refill [facility] [address] [place], [place] [phone] Eva Godoy MD Gastroesophageal reflux disease, unspecified whether esophagitis present from Last 3 Months Immunizations Immunization Administration [...] 01/21/2025 10:06 AM EDT Plan of Treatment Upcoming Encounters Date Type Department Care Team (Late st Contact Info) Description 06/26/2025 9:00 AM EST Office Visit [facility] [address] [place], [place] [phone] Eva Godoy MD [address] [place], [place] [phone] Health Maintenance Due Date Last Done Comments Dental Prophylaxis 1944 Alcohol/Substance Use Screening 1956 Lipid Panel 12/15/2022 12/15/2021, 04/18/2020 Dental Oral Exam 02/11/2023 08/13/2022 Dental X-Ray: Bitewings 08/14/2023 08/13/2022 DTaP/Tdap/Td Vaccines (2 - Td or Tdap) 01/10/2024 01/09/2014, 01/16/2009, 01/16/2009 COVID-19 Vaccine ( - season) 2025 12/15/2021, 10/07/2020, 09/09/2020 Influenza Vaccine (#1) 2025 , 05/08/2024, 09/23/2022, Additional history exists Diabetes: Hemoglobin A1C 07/23/202501/21/2 025, 10/19/2024, 05/21/2024, Additional history exists SDOH Screening 10/10/2025 10/10/2024 Diabetes: Foot Exam 10/19/2025 10/19/2024, 10/19/2024, 10/19/2024, Additional history exists Eye Exam 12/27/2025 07/06/2022 Depression Screening 01/21/2026 01/21/2025, 01/22/20 Tobacco Screening 01/21/2026 01/21/2025 Dental X-Ray: Full Mouth 05/11/2026 05/10/2023, 07/26 Zoster Vaccines Completed 04/20/2022, 01/19/2022 Pneumococcal Vaccine: 50+ Years Completed 05/04/2022 Hepatitis B Vaccines Completed 01/23/2025, 09/24/2024, 09/24/2024 RSV Patients and Patients Aged 60 years or older Completed 02/25/2025 HIB Vaccines Aged Out No longer eligi [...] diabetes mellitus ([facility]) PANORAMIC RADIOGRAPHIC IMAGE Routine 05/10/2023 8:00 AM [...] Media Lot # [id number] Lot# Expiration Date [id number] Blood 01/21/2025 11:0 7 AM EDT Eva Godoy MD POINT OF CARE TEST ENTER [...] LDL-C is now calculated using the Jose Angel-Jessica calculation, which is a validated novel method providing better accuracy than the Friedewald equation in the estimation of LDL-C. Jose Angel SS et al. CORY. 2013;310(19): 5111-0638 (http://education.BrightBytes.flyRuby.com/faq/SDB491) Non-HDL Cholesterol 119 <130 mg/dL (calc) [facility] Comment: For patients with diabetes plus 1 major ASCVD risk factor, treating to a non-HDL-C goal of <100 mg/dL (LDL-C of <70 mg/dL) is considered a therapeutic option. Triglycerides 162(H) <150 mg/dL [facility] 12/15/2021 8:21 AM EDT Eva Godoy MD LAB BLOOD ORDERABLES Fin al Result [facility] [address] [place] [address], from Last 3 Months or Most Recently Relevant to Health Maintenance Insurance [facility] STANDARD UHC GROUP MEDICARE REPLACEMENT DENTAL-[facility] MEDICAID STAND ADULT Care Teams Emergency Room Specialist Relationship Specialty Start Date End Date Eva Godoy MD [address] [place] [address] PCP - General Family Medicine 03/10/17 Donald Gallegos, LissaD [address] [place] [address] Pharmacist Internal Medicine 10/01/22
--- OUTSIDE RECORDS SUMMARY | 2025-04-30 18:48 | XMS_ITS | Encounter Summary ---
Author Organization [facility] Address [address] [facility] [address] [place] [address] Phone Care Team Providers Care Grit Removal Operator Name Role Phone Eva Conrad MD Primary Care Provider + [phone] Reason for Visit * Reason Comments Med Refill Encounter Details Date Type Department Care Team (Late st Contact Info) Description 06/07/2021 Refill [facility] [address] [place] [phone] Guero Zuniga MD Social History Tobacco Use [...] on filedocumented in this encounter Care Teams Grit Removal Operator Relationship Specialty Start Date End Date Eva Conrad MD [address] [place] [address] [phone] PCP - General Internal Medicine 10/30/20 documented as of this encounter
== END 2025-04-30 16:13 | disposition home or self-care (01) ==
LOC: HO.HKA 15:58
PROVIDERS: PCP Internal Medicine; Visit Provider Internal Medicine Hypertension Specialist
DX: N18.6 End stage renal disease (principal)
CPT/HCPCS: 99024

== ENCOUNTER → 2025-04-30 15:58 | Outpatient (BNVA) | payer MEDICARE, MEDICAID, SELFPAY | PROVIDERS: PCP Internal Medicine; Visit Provider Internal Medicine Hypertension Specialist | DX: E11.22 Type 2 diabetes mellitus with diabetic chronic kidney disease (principal); N18.6 End stage renal disease; Z99.2 Dependence on renal dialysis; Z79.84 Long term (current) use of oral hypoglycemic drugs; E78.5 Hyperlipidemia, unspecified | CPT/HCPCS: 99212 ==

== ENCOUNTER → 2025-05-25 23:59 | Outpatient (BNV) | payer MEDICARE, MEDICAID, SELFPAY | PROVIDERS: PCP Internal Medicine; Visit Provider Internal Medicine Hypertension Specialist | DX: N18.6 End stage renal disease (principal) | CPT/HCPCS: 90962 ==

== ENCOUNTER 2025-06-10 09:56 | Outpatient (AMB) | payer MEDICARE, MEDICAID, SELFPAY ==
[2025-06-10 09:57] VITALS: BP 162/62; PULSE 80; O2SAT 98; BMI 38.1
--- NOTE | 2025-06-10 09:57 | HO.NEPHOV ---
Vital Signs 06/10/25 09:57 06/10/25 10:06 Height 5 ft 5 in Weight 229 lb BMI 38.1 BP 162/62 H 140/60 H Blood Pressure Location Rt brachial Rt brachial Position Sitting Sitting Pulse 80 Pulse Source Pulse Oximeter Pulse Oximetry (%) 98 Oxygen Delivery Method Room Air Intake Visit Reasons: 1 mo f/u, lvm Instrument Maintenance Supervisor Required: No Accompanied by: Daughter Allergies Crustaceans Allergy (Mild, Uncoded 11/15/24 16:14) SWELLING/HIVES PFSH Medical History ESRD (end stage renal disease) Hypertension High cholesterol Diabetes Gallbladder & bile duct stone with obstruction Social History Household Members: None Alcohol intake: never Patient Tobacco Use Status: Never used Tobacco Physical Exam Vital Signs: Last Vital Signs Pulse 80 06/10/25 09:57 BP 162/62 H 06/10/25 09:57 Pulse Ox 98 06/10/25 09:57 Oxygen Delivery Method Room Air 06/10/25 09:57 BMI result Body Mass Index 38.1 Results Reviewed Nephrology Results: Renal US 11/19/20 Assessment & Plan Assessment & Plan (1) ESRD (end stage renal disease): Code(s): N18.6 - End stage renal disease Category: Medical Plan see dialysis notes Coding Level of Care Code Global (92753) Diagnoses ESRD (end stage renal disease) N18.6
[2025-06-10 10:06] VITALS: BP 140/60
== END 2025-06-10 10:10 | disposition home or self-care (01) ==
LOC: HO.HKA 09:56
PROVIDERS: PCP Internal Medicine; Visit Provider Internal Medicine Hypertension Specialist
DX: N18.6 End stage renal disease (principal)
CPT/HCPCS: 99024

== ENCOUNTER → 2025-06-10 09:56 | Outpatient (BNVA) | payer MEDICARE, MEDICAID, SELFPAY | PROVIDERS: PCP Internal Medicine; Visit Provider Internal Medicine Hypertension Specialist | DX: I12.0 Hypertensive chronic kidney disease with stage 5 chronic kidney disease or end stage renal disease (principal); E11.22 Type 2 diabetes mellitus with diabetic chronic kidney disease; N18.6 End stage renal disease; Z99.2 Dependence on renal dialysis; Z79.84 Long term (current) use of oral hypoglycemic drugs | CPT/HCPCS: 99212 ==